=== PATIENT | female | born 1945 | race Caucasian/White ===

== ENCOUNTER → 2016-11-26 | Outpatient (CLI) | payer OTHER ==
[2015-07-26 10:13] VITALS: BP 115/73
[2016-11-26 10:50] LABS: FREE T4 (FREE THYROXINE) 1.3 ng/dL (0.76-1.46); TSH (3RD GENERATION) 2.019 uIU/mL (0.358-3.74)
== END ==
LOC: LAB 10:02
DX: E03.4 Atrophy of thyroid (acquired) (principal); Z79.899 Other long term (current) drug therapy; E55.9 Vitamin D deficiency, unspecified
CPT/HCPCS: 36415; 82306; 84439; 84443; 84481

== ENCOUNTER → 2017-07-06 | Outpatient (CLI) | payer OTHER ==
[2015-07-26 10:13] VITALS: BP 115/73
--- NOTE | 2017-07-06 15:52 | CT ---
HISTORY: Shortness of breath. Abnormal chest CT. Study: Computed tomography of the chest: Multiple axial images were obtained throughout the chest. Intravascular contrast was not administered. Radiation dose reduction techniques utilized. The hil ar resolution re-formatted images of the lung parenchyma do not include portions of the lower lobes. These areas are included on the routine mediastinal windows. Comparison: 07/13/2016 CT scan Findings: Very minimal hypostatic changes noted posteriorly. No pulmonary nodules or parenchymal infiltrates a re identified. The small areas of atelectatic change have resolved. I see no evidence of mediastinal adenopathy. A few small mediastinal lymph nodes are present. Minim al coronary arterial calcification is present. The thyroid is not well visualized. No evidence of s upraclavicular adenopathy is noted. The heart size is normal. Bilateral breast implants are present . Mild atherosclerotic changes present in the thoracic aorta. Mild is noted in the visualized abdom inal aorta. The abdomen as visualized demonstrates no focal lesions of the liver or spleen. The visualized adren al glands are normal. Visualized kidneys and gallbladder are normal. The visualized pancreas is nor mal. The bowel and mesentery as visualized is normal. Examination of the bone windows demonstrate mild to moderate thoracic spondylosis. No acute bony abn ormalities are identified. IMPRESSION: 1. The basilar atelectatic change/infiltrate in the lungs has resolved. I see no evidence of pleura l effusions, parenchymal infiltrates or pulmonary nodules. 2. Otherwise no significant change is noted. Reported By:
== END ==
LOC: RAD 13:52
PROVIDERS: ATTEND Internal Medicine Critical Care Medicine
DX: R93.8 Abnormal findings on diagnostic imaging of other specified body structures (principal)
CPT/HCPCS: 71250

== ENCOUNTER → 2017-10-26 | Outpatient (CLI) | payer OTHER ==
[2015-07-26 10:13] VITALS: BP 115/73
--- NOTE | 2017-10-26 15:41 | RAD ---
HISTORY: Shortness breath. Abnormal chest CT. Study: PA and lateral chest Comparison: CT scan 07/06/2017 Findings: Minimal interstitial scarring is noted. Otherwise, the heart, lungs, mediastinum and bony structures are normal for the patient's age with minimal mild thoracic spondylosis. Bilateral breast implants present. IMPRESSION: 1. Minimal interstitial scarring. 2. No radiographic evidence of acute cardiopulmonary disease. Reported By:
== END ==
LOC: RAD 15:07
PROVIDERS: ATTEND Nurse Practitioner Family
DX: R06.02 Shortness of breath (principal); R05 Cough; J20.9 Acute bronchitis, unspecified
CPT/HCPCS: 71046

== ENCOUNTER 2017-12-15 16:49 | Inpatient (IN) ==
[2017-12-15] MEDS ORDERED: ZOFRAN INJ 4 MG VIAL IVP PRN (18:55)
[2017-12-15 19:19] LABS: BASOPHILS # (AUTO) 0.1 X10^3/uL (0.0-0.1); BASOPHILS % (AUTO) 0.5 % (0.2-1.0); EOSINOPHILS # (AUTO) 0.2 x10^3/uL (0.0-0.2); EOSINOPHILS % (AUTO) 2.1 % (0.9-2.9); HEMATOCRIT 34.5 % (36.0-47.0); HEMOGLOBIN 11.4 g/dL (12.0-16.0); LYMPHOCYTES # (AUTO) 2.4 X10^3/uL (1.3-2.9); LYMPHOCYTES % (AUTO) 21.8 % (21.0-51.0); MEAN CORPUSCULAR HEMOGLOBIN 32.8 pg (27.0-34.0); MEAN CORPUSCULAR HGB CONC 33.2 g/dL (33.0-35.0); MEAN CORPUSCULAR VOLUME 98.8 fL (80.0-100.0); MEAN PLATELET VOLUME 7.8 fL (7.4-11.0); MONOCYTES % (AUTO) 8.7 % (0.0-13.0); NEUTROPHILS # (AUTO) 7.4 x10^3/uL (2.2-4.8); NEUTROPHILS % (AUTO) 66.9 % (42.0-75.0); PLATELET COUNT 294 X10^3/uL (150.0-450.0); RED BLOOD COUNT 3.49 X10^6/uL (3.5-5.4); RED CELL DISTRIBUTION WIDTH 14.6 % (11.6-16.5); WHITE BLOOD COUNT 11.1 X10^3/uL (3.6-10.0)
[2017-12-15 19:32] LABS: ALANINE AMINOTRANSFERASE 32 Units/L (12-78); ALBUMIN 3.5 g/dL (3.4-5.0); ALKALINE PHOSPHATASE 88 Units/L (46-116); AMYLASE 33 Units/L (25-115); ASPARTATE AMINO TRANSFERASE 18 Units/L (15-37); BLOOD UREA NITROGEN 22 mg/dL (7-18); CALCIUM 8.7 mg/dL (8.5-10.1); CARBON DIOXIDE 25.4 mmol/L (21-32); CHLORIDE 109 mmol/L (98-107); COR NA(FOR HYPERGLY) 146 mmol/L (136-145); CREATININE 1.46 mg/dL (0.55-1.02); LIPASE 152 Units/L (73-393); SODIUM 145 mmol/L (136-145); TOTAL PROTEIN 7.1 g/dL (6.4-8.2); eGFR NON BLACK RACES 37 (>60)
[2017-12-15] MEDS: LEVSIN/MAALOX/LIDOC VISC PO SCH ×2 (19:32→21:57)
[2017-12-15] MEDS: PEPCID 20 MG IV PREMIX* 20 MG/50 ML BAG IV SCH ×2 (19:33→21:58)
[2017-12-15] MEDS: PROTONIX INJ 40 MG VIAL IVP SCH ×2 (19:33→21:58)
[2017-12-15] MEDS: NS 1000 ML 1,000 ML IV SCH (19:33)
[2017-12-15 19:44] VITALS: BMI 29.2
--- NOTE | 2017-12-15 22:23 | CT ---
CT abdomen and pelvis without contrast Indication: Abdominal pain and bloating Technique: Helical images through the abdomen and pelvis with oral contrast only. No IV contrast. Cor onal and sagittal reformats provided. Comparison: No similar priors available. Findings: Limited images through the lower chest shows no acute abnormality. Breast implants noted. R eview of bone windows demonstrates spine degenerative change and slight curve to the right of the lum bar spine. Abdomen: Within the limits of a noncontrast study, the liver, gallbladder, spleen, adrenal glands, pa ncreas and stomach are normal. Contrast enters the distal small bowel without obstruction. No acute c olonic abnormality identified. Minimal vascular calcifications noted. Kidneys are normal without hydr oureteronephrosis. Pelvis: The urinary bladder and rectum are normal. Uterus is absent. No adnexal region lesions seen. Pancreas head appears atrophic, and there may be a small cystic lesion on axial image 38 versus atrop hic pancreas head/dilated common bowel duct. Impression: 1. No acute abnormality to explain the patient's pain 2. Question pancreas head cystic lesion. MRI abdomen follow-up recommended Reported By:
[2017-12-16] MEDS ORDERED: VISTARIL PO ONE (01:39)
[2017-12-16] MEDS: RESTORIL CAP 15 MG PO PRN (03:30)
[2017-12-16 04:39] LABS: BILIRUBIN,URINE NEGATIVE (NEGATIVE); BLOOD/HEMOGLOBIN,URINE 1+ (NEGATIVE); GLUCOSE, URINE NEGATIVE (NEGATIVE); KETONES,URINE NEGATIVE (NEGATIVE); LEUKOCYTE ESTERASE ,URINE NEGATIVE (NEGATIVE); NITRITES,URINE NEGATIVE (NEGATIVE); PROTEIN,URINE NEGATIVE (NEGATIVE); UROBILINOGEN,URINE NORMAL (NORMAL)
[2017-12-16 04:57] LABS: APPEARANCE,URINE CLEAR (CLEAR); COLOR,URINE YELLOW (YELLOW)
[2017-12-16 04:59] LABS: BACTERIA,URINE NEGATIVE /HPF (NEGATIVE); SQUAMOUS EPITHELIAL CELL,UR NEGATIVE /HPF (NEGATIVE)
[2017-12-16 06:08] LABS: BASOPHILS % (AUTO) 0.4 % (0.2-1.0); EOSINOPHILS # (AUTO) 0.2 x10^3/uL (0.0-0.2); EOSINOPHILS % (AUTO) 2.2 % (0.9-2.9); HEMATOCRIT 31.2 % (36.0-47.0); HEMOGLOBIN 10.6 g/dL (12.0-16.0); LYMPHOCYTES # (AUTO) 2.1 X10^3/uL (1.3-2.9); LYMPHOCYTES % (AUTO) 23.1 % (21.0-51.0); MEAN CORPUSCULAR HEMOGLOBIN 33.7 pg (27.0-34.0); MEAN CORPUSCULAR HGB CONC 34.1 g/dL (33.0-35.0); MEAN CORPUSCULAR VOLUME 98.7 fL (80.0-100.0); MEAN PLATELET VOLUME 7.9 fL (7.4-11.0); MONOCYTES # (AUTO) 0.8 x10^3/uL (0.3-0.8); MONOCYTES % (AUTO) 8.9 % (0.0-13.0); NEUTROPHILS # (AUTO) 5.9 x10^3/uL (2.2-4.8); NEUTROPHILS % (AUTO) 65.4 % (42.0-75.0); PLATELET COUNT 262 X10^3/uL (150.0-450.0); RED BLOOD COUNT 3.16 X10^6/uL (3.5-5.4); RED CELL DISTRIBUTION WIDTH 14.3 % (11.6-16.5); WHITE BLOOD COUNT 9.1 X10^3/uL (3.6-10.0)
[2017-12-16 06:14] LABS: ALANINE AMINOTRANSFERASE 28 Units/L (12-78); ALKALINE PHOSPHATASE 74 Units/L (46-116); ASPARTATE AMINO TRANSFERASE 16 Units/L (15-37); BLOOD UREA NITROGEN 18 mg/dL (7-18); CALCIUM 8.1 mg/dL (8.5-10.1); CARBON DIOXIDE 25.6 mmol/L (21-32); CHLORIDE 111 mmol/L (98-107); COR CA(FOR HYPOALB) 8.9 mg/dL (8.5-10.1); CREATININE 1.16 mg/dL (0.55-1.02); SODIUM 144 mmol/L (136-145); TOTAL PROTEIN 5.8 g/dL (6.4-8.2); eGFR NON BLACK RACES 49 (>60)
[2017-12-16] MEDS: LEVSIN/MAALOX/LIDOC VISC PO SCH ×4 (08:15→20:30)
[2017-12-16] MEDS: PEPCID 20 MG IV PREMIX* 20 MG/50 ML BAG IV SCH ×2 (08:16→20:26)
[2017-12-16] MEDS: PROTONIX INJ 40 MG VIAL IVP SCH ×2 (08:16→20:26)
[2017-12-16] MEDS: NS 1000 ML 1,000 ML IV SCH ×2 (10:19→21:25)
--- NOTE | 2017-12-16 13:17 | DR.UPDATE ---
H&P Update History and Physical Update: WAS SEEN IN THE OFFICE TODAY. A H&P WAS COMPLETED PRIOR TO ADMISSION. PATIENT HAS BEEN SEEN AND EXAMINED WITH NO CHANGES NOTED TO H&P. Changes noted: NO Yes with the following:
[2017-12-16] MEDS ORDERED: MULTIVIT MIN IRON FA LUTEIN PO SCH (14:00)
[2017-12-16] MEDS ORDERED: FLUOXETINE PO SCH (14:00)
[2017-12-16] MEDS ORDERED: PATIENT'S HOME MEDICATION (Potassium Chloride [Potassium Chloride] 20 MEQ) PO SCH (14:00)
[2017-12-16] MEDS ORDERED: FOLIC ACID 0.8 MG PO SCH (14:00)
[2017-12-16] MEDS ORDERED: PROPRANOLOL 20 MG PO SCH (14:00)
[2017-12-16] MEDS: ASPIRIN PO SCH (14:22)
[2017-12-16] MEDS: ARICEPT TAB 10 MG PO SCH (14:22)
[2017-12-16] MEDS: SYNTHROID 75 mcg TAB PO SCH (14:23)
[2017-12-16] MEDS: BUSPAR PO SCH ×2 (14:23→21:25)
--- NOTE | 2017-12-16 15:07 | MRI ---
MRI abdomen without contrast Indication: Possible pancreas head lesions seen on CT from 12/15/2017 Technique: Multiplanar multi sequence imaging through the abdomen without contrast. Comparison: Previous day's CT was reviewed. Findings: There is spine degenerative change with relatively normal bone marrow signal. Lung bases ar e clear. Breast implants are noted. Neurovascular structures appear normal. No liver lesion identifie d. The adrenal glands, spleen, liver, kidneys and visualized bowel loops are grossly normal. Out of p hase imaging shows no acute abnormality or evidence of fatty liver. No T1 signal abnormality identifi ed. Pancreas duct is visible but not markedly dilated. Intra and extrahepatic biliary tree appears relati vely normal. There is multi lobulated cystic area replacing the atrophic head of the pancreas, best d emonstrated on axial images 24 through 26. The lesion measures 1.4 x 1.8 x 2.7 cm (AP, trans, cc) on axial image 25 and coronal image 14 of the T2 weighted sequences. Lesion is low in T2 signal. Impression: 1. Focal atrophy of the head of the pancreas which is most really replaced by a multilocular microcys tic lesion measuring about 2.7 cm in maximal dimension. This merits follow-up MR imaging at 6 month i ntervals for 2 years to document stability and to exclude malignant transformation. At that point, if stable, further recommendations for long-term interval imaging will be provided per ACR guidelines 2. No other significant abnormality. Reported By:
[2017-12-16] MEDS: BENADRYL CAP/TAB 25 MG PO SCH (17:44)
[2017-12-16] MEDS: NAMENDA TAB 10 MG PO SCH (20:27)
[2017-12-16] MEDS: INDERAL TAB 10 MG PO SCH (20:29)
[2017-12-16] MEDS: CRESTOR TAB 10 MG PO SCH (20:29)
[2017-12-16] MEDS: ZyPREXA TAB 5 MG PO SCH (20:31)
[2017-12-16] MEDS ORDERED: ROSUVASTATIN PO SCH (21:00)
[2017-12-16] MEDS ORDERED: PATIENT'S HOME MEDICATION (Memantine [Memantine] 5 MG) PO SCH (21:00)
[2017-12-16] MEDS: VISTARIL PO PRN (21:26)
[2017-12-17] MEDS: BENADRYL CAP/TAB 25 MG PO SCH ×2 (06:11→17:13)
[2017-12-17] MEDS: BUSPAR PO SCH ×3 (06:11→23:11)
[2017-12-17 06:43] LABS: BASOPHILS % (AUTO) 0.5 % (0.2-1.0); EOSINOPHILS # (AUTO) 0.2 x10^3/uL (0.0-0.2); EOSINOPHILS % (AUTO) 3.1 % (0.9-2.9); HEMATOCRIT 31.8 % (36.0-47.0); HEMOGLOBIN 10.6 g/dL (12.0-16.0); LYMPHOCYTES # (AUTO) 1.9 X10^3/uL (1.3-2.9); LYMPHOCYTES % (AUTO) 28.8 % (21.0-51.0); MEAN CORPUSCULAR HEMOGLOBIN 33.6 pg (27.0-34.0); MEAN CORPUSCULAR HGB CONC 33.4 g/dL (33.0-35.0); MEAN CORPUSCULAR VOLUME 100.4 fL (80.0-100.0); MEAN PLATELET VOLUME 8.3 fL (7.4-11.0); MONOCYTES # (AUTO) 0.6 x10^3/uL (0.3-0.8); MONOCYTES % (AUTO) 9.2 % (0.0-13.0); NEUTROPHILS # (AUTO) 3.8 x10^3/uL (2.2-4.8); NEUTROPHILS % (AUTO) 58.4 % (42.0-75.0); PLATELET COUNT 255 X10^3/uL (150.0-450.0); RED BLOOD COUNT 3.17 X10^6/uL (3.5-5.4); RED CELL DISTRIBUTION WIDTH 14.8 % (11.6-16.5); WHITE BLOOD COUNT 6.5 X10^3/uL (3.6-10.0)
[2017-12-17 07:19] LABS: ALANINE AMINOTRANSFERASE 30 Units/L (12-78); ALBUMIN 2.9 g/dL (3.4-5.0); ALKALINE PHOSPHATASE 63 Units/L (46-116); ASPARTATE AMINO TRANSFERASE 18 Units/L (15-37); BLOOD UREA NITROGEN 13 mg/dL (7-18); CALCIUM 8.3 mg/dL (8.5-10.1); CARBON DIOXIDE 27.7 mmol/L (21-32); CHLORIDE 112 mmol/L (98-107); COR CA(FOR HYPOALB) 9.2 mg/dL (8.5-10.1); CREATININE 0.94 mg/dL (0.55-1.02); SODIUM 144 mmol/L (136-145); TOTAL PROTEIN 5.6 g/dL (6.4-8.2); eGFR NON BLACK RACES > 60 (>60)
[2017-12-17] MEDS ORDERED: ZyPREXA TAB 5 MG PO SCH (09:00)
[2017-12-17] MEDS ORDERED: K-DUR TAB 20 MEQ PO SCH (09:00)
--- NOTE | 2017-12-17 09:06 | RAD ---
Examination: Portable AP chest History: SOB Comparison reference 10/26/2017 Findings: Continued normal heart size with clear lungs and pleural spaces. Impression: No change; no acute findings. Reported By:
[2017-12-17] MEDS: DUONEB 0.5 MG/3 MG NEB SCH ×4 (10:27→21:17)
[2017-12-17] MEDS: PEPCID 20 MG IV PREMIX* 20 MG/50 ML BAG IV SCH ×2 (10:55→21:19)
[2017-12-17] MEDS: INDERAL TAB 10 MG PO SCH ×2 (10:55→21:16)
[2017-12-17] MEDS: ASPIRIN PO SCH (10:56)
[2017-12-17] MEDS: MICRO K EXTEN CAP 10 MEQ PO SCH (10:56)
[2017-12-17] MEDS: SYNTHROID 75 mcg TAB PO SCH (10:56)
[2017-12-17] MEDS: ARICEPT TAB 10 MG PO SCH (10:56)
[2017-12-17] MEDS: NAMENDA TAB 10 MG PO SCH ×2 (10:56→21:18)
[2017-12-17] MEDS: TAB-A-VITE PO SCH (10:57)
[2017-12-17] MEDS: FOLIC ACID TAB 1 MG PO SCH (10:57)
[2017-12-17] MEDS: ZyPREXA TAB 5 MG PO SCH ×2 (10:58→21:17)
[2017-12-17] MEDS: LEVSIN/MAALOX/LIDOC VISC PO SCH ×4 (10:58→23:49)
[2017-12-17] MEDS: PROzac PO SCH (10:58)
[2017-12-17] MEDS: PROTONIX INJ 40 MG VIAL IVP SCH ×2 (10:59→21:16)
[2017-12-17] MEDS ORDERED: DUONEB 0.5 MG/3 MG ONE ×2 (13:12→16:02)
--- NOTE | 2017-12-17 15:42 | PCM.PROG ---
Progress Note - Progress Note for Day of Date: 12/16/17 - Subjective Subjective: WAS ADMITTED FOR ABDOMINAL PAIN. TODAY, SHE IS ALERT AND ORIENTED, LYING IN BED ON MORNING ROUNDS. SHE CONTINUES TO COMPLAIN OF MILD, DIFFUSE ABDOMINAL PAIN. ON EXAMINATION, BILATERAL LUNGS ARE CLEAR TO AUSCULTATION. ABDOMEN IS ROUND, SOFT, AND NOTED WITH DIFFUSE TENDERNESS TO PALPATION. HER VITALS TODAY ARE 98.1-62-18-94%-138/66. LABS WERE OBTAINED. ABNORMAL LAB VALUES INCLUDE THE FOLLOWING: RBC 3.16, HGB 10.6, HCT 31.2, CHLORIDE 111, CREATININE 1.16, CALCIUM 8.1, TOTAL PROTEIN 5.8, ALBUMIN 3.0. AN ABD/PELVIS CT WAS OBTAINED ON ADMISSION AND REVEALED: No acute abnormality to explain the patient's pain. Question pancreas head cystic lesion. MRI abdomen follow-up recommended. TODAY, WE WILL OBTAIN AN ABDOMEN MRI AND CA 19-9. OTHERWISE, WE WILL CONTINUE WITH CURRENT PLAN OF CARE. WE PLAN TO FOLLOW UP WITH AM LABS AND CONTINUE TO MONITOR PATIENT. - Past Medical Family Social History Past Med/Fam/Surg Hx: No changes since H&P Allergies: Allergies beeswax Allergy (Verified 12/16/17 05:05) morphine Allergy (Verified 12/16/17 05:05) nifedipine Allergy (Verified 12/16/17 05:05) - Review of Systems ROS: No change since H&P - Vital Signs and I&O's Vital Signs: Temperature 98.1 F Pulse Rate [Right Brachial] 49 Respiratory Rate 21 Blood Pressure [Right Arm] 156/80 Blood Pressure 134/84 O2 Sat by Pulse Oximetry 100 Intake and Output: Intake & Output 12/15/17 12/16/17 12/17/17 12/18/17 11:59 11:59 11:59 11:59 Intake Total 1010 / 1010 1317 / 1317 Balance 1010 / 1010 1317 / 1317 - Physical Exam Oriented: Normal Eyes: Normal Ear: Normal Nose: Normal Throat: Normal Respiratory: Normal : Normal Auscultation: Bowel Sounds: Normal Palpation: Normal Tenderness: Diffuse, Mild. negative: Rebound, Guarding, Rigidity Skin: Normal Musculoskeletal: Normal Psychiatric: Normal Mood Description: Calm Affect: Normal Speech Pattern: Appropriate - Laboratory and Diagnostics Result Diagrams: 12/17/17 05:36 12/17/17 05:36 Labs: 12/15/17 03:30 Urine,Clean Catch Urine Culture - Preliminary Laboratory WBC 6.5 X10^3/uL (3.6-10.0) 12/17/17 05:36 RBC 3.17 X10^6/uL (3.5-5.4) L 12/17/17 05:36 Hgb 10.6 g/dL (12.0-16.0) L 12/17/17 05:36 Hct 31.8 % (36.0-47.0) L 12/17/17 05:36 MCV 100.4 fL (80.0-100.0) H 12/17/17 05:36 MCH 33.6 pg (27.0-34.0) 12/17/17 05:36 MCHC 33.4 g/dL (33.0-35.0) 12/17/17 05:36 RDW 14.8 % (11.6-16.5) 12/17/17 05:36 Plt Count 255 X10^3/uL (150.0-450.0) 12/17/17 05:36 MPV 8.3 fL (7.4-11.0) 12/17/17 05:36 Neut % (Auto) 58.4 % (42.0-75.0) 12/17/17 05:36 Lymph % (Auto) 28.8 % (21.0-51.0) 12/17/17 05:36 [place] % (Auto) 9.2 % (0.0-13.0) 12/17/17 05:36 Eos % (Auto) 3.1 % (0.9-2.9) H 12/17/17 05:36 Baso % (Auto) 0.5 % (0.2-1.0) 12/17/17 05:36 Neut # (Auto) 3.8 x10^3/uL (2.2-4.8) 12/17/17 05:36 Lymph # (Auto) 1.9 X10^3/uL (1.3-2.9) 12/17/17 05:36 [place] # (Auto) 0.6 x10^3/uL (0.3-0.8) 12/17/17 05:36 Eos # (Auto) 0.2 x10^3/uL (0.0-0.2) 12/17/17 05:36 Baso # (Auto) 0.0 X10^3/uL (0.0-0.1) 12/17/17 05:36 Absolute Nucleated RBC 0.3 /100WBC 12/17/17 05:36 Sodium 144 mmol/L (136-145) 12/17/17 05:36 Corrected Sodium TNP 12/17/17 05:36 Potassium 3.8 mmol/L (3.5-5.1) 12/17/17 05:36 Chloride 112 mmol/L (98-107) H 12/17/17 05:36 Carbon Dioxide 27.7 mmol/L (21-32) 12/17/17 05:36 BUN 13 mg/dL (7-18) 12/17/17 05:36 Creatinine 0.94 mg/dL (0.55-1.02) 12/17/17 05:36 Est GFR (MDRD) Af Amer > 60 (>60) 12/17/17 05:36 Est GFR (MDRD) Non-Af > 60 (>60) 12/17/17 05:36 Glucose 96 mg/dL (65-99) 12/17/17 05:36 Calcium 8.3 mg/dL (8.5-10.1) L 12/17/17 05:36 Corrected Calcium 9.2 mg/dL (8.5-10.1) 12/17/17 05:36 Total Bilirubin 0.30 mg/dL (0.2-1.0) 12/17/17 05:36 AST 18 Units/L (15-37) 12/17/17 05:36 ALT 30 Units/L (12-78) 12/17/17 05:36 Alkaline Phosphatase 63 Units/L (46-116) 12/17/17 05:36 Total Protein 5.6 g/dL (6.4-8.2) L 12/17/17 05:36 Albumin 2.9 g/dL (3.4-5.0) L 12/17/17 05:36 Globulin 2.7 g/dL (2.5-4.5) 12/17/17 05:36 Albumin/Globulin Ratio 1.1 Ratio (1.1-2.1) 12/17/17 05:36 Amylase 33 Units/L (25-115) 12/15/17 19:11 Lipase 152 Units/L (73-393) 12/15/17 19:11 Specimen Type Clean catch urine 12/15/17 03:30 Urine Color Yellow (YELLOW) 12/15/17 03:30 Urine Appearance Clear (CLEAR) 12/15/17 03:30 Urine pH 6.0 (5.0 - 8.0) 12/15/17 03:30 Ur Specific [place] 1.020 (1.000-1.030) 12/15/17 03:30 Urine Protein Negative (NEGATIVE) 12/15/17 03:30 Urine Glucose (UA) Negative (NEGATIVE) 12/15/17 03:30 Urine Ketones Negative (NEGATIVE) 12/15/17 03:30 Urine Occult Blood 1+ (NEGATIVE) 12/15/17 03:30 Urine Nitrite Negative (NEGATIVE) 12/15/17 03:30 Urine Bilirubin Negative (NEGATIVE) 12/15/17 03:30 Urine Urobilinogen Normal (NORMAL) 12/15/17 03:30 Ur Leukocyte Esterase Negative (NEGATIVE) 12/15/17 03:30 Urine RBC 3-5 /HPF (NONE SEEN) 12/15/17 03:30 Urine WBC None seen /HPF (NONE SEEN) 12/15/17 03:30 Ur Squamous Epith Cells Negative /HPF (NEGATIVE) 12/15/17 03:30 Urine Bacteria Negative /HPF (NEGATIVE) 12/15/17 03:30 Ur Culture Indicated? No/not indicated 12/15/17 03:30 H. pylori IgG Antibody Negative (NEGATIVE) 12/15/17 19:11 - Plan (1) Abdominal pain Status: Acute Qualifiers: Abdominal location: generalized Qualified Code(s): R10.84 - Generalized abdominal pain Plan: ABDOMEN MRI TODAY, CONTINUE TO MONITOR
[2017-12-17] MEDS: RESTORIL CAP 15 MG PO PRN (21:16)
[2017-12-17] MEDS: CRESTOR TAB 10 MG PO SCH (21:17)
[2017-12-17] MEDS: VISTARIL PO PRN (21:30)
[2017-12-17] MEDS: NS 1000 ML 1,000 ML IV SCH (23:49)
[2017-12-18] MEDS: NS 1000 ML 1,000 ML IV SCH (05:21)
[2017-12-18] MEDS: BUSPAR PO SCH ×3 (05:55→21:19)
[2017-12-18] MEDS: BENADRYL CAP/TAB 25 MG PO SCH ×2 (06:01→17:03)
[2017-12-18 06:42] LABS: BASOPHILS % (AUTO) 0.4 % (0.2-1.0); EOSINOPHILS # (AUTO) 0.2 x10^3/uL (0.0-0.2); EOSINOPHILS % (AUTO) 2.8 % (0.9-2.9); HEMATOCRIT 34.6 % (36.0-47.0); HEMOGLOBIN 11.6 g/dL (12.0-16.0); LYMPHOCYTES # (AUTO) 1.7 X10^3/uL (1.3-2.9); LYMPHOCYTES % (AUTO) 27.5 % (21.0-51.0); MEAN CORPUSCULAR HEMOGLOBIN 33.3 pg (27.0-34.0); MEAN CORPUSCULAR HGB CONC 33.4 g/dL (33.0-35.0); MEAN CORPUSCULAR VOLUME 99.6 fL (80.0-100.0); MEAN PLATELET VOLUME 8.1 fL (7.4-11.0); MONOCYTES # (AUTO) 0.5 x10^3/uL (0.3-0.8); MONOCYTES % (AUTO) 7.8 % (0.0-13.0); NEUTROPHILS # (AUTO) 3.8 x10^3/uL (2.2-4.8); NEUTROPHILS % (AUTO) 61.5 % (42.0-75.0); PLATELET COUNT 290 X10^3/uL (150.0-450.0); RED BLOOD COUNT 3.47 X10^6/uL (3.5-5.4); RED CELL DISTRIBUTION WIDTH 15.2 % (11.6-16.5); WHITE BLOOD COUNT 6.1 X10^3/uL (3.6-10.0)
[2017-12-18 07:01] LABS: ALANINE AMINOTRANSFERASE 30 Units/L (12-78); ALBUMIN 3.1 g/dL (3.4-5.0); ALKALINE PHOSPHATASE 70 Units/L (46-116); ASPARTATE AMINO TRANSFERASE 23 Units/L (15-37); BLOOD UREA NITROGEN 12 mg/dL (7-18); CALCIUM 8.7 mg/dL (8.5-10.1); CARBON DIOXIDE 29.8 mmol/L (21-32); CHLORIDE 111 mmol/L (98-107); COR CA(FOR HYPOALB) 9.4 mg/dL (8.5-10.1); CREATININE 1.12 mg/dL (0.55-1.02); SODIUM 145 mmol/L (136-145); TOTAL PROTEIN 6.2 g/dL (6.4-8.2); eGFR NON BLACK RACES 51 (>60)
[2017-12-18] MEDS ORDERED: DUONEB 0.5 MG/3 MG ONE ×2 (08:39→20:18)
[2017-12-18] MEDS: DUONEB 0.5 MG/3 MG NEB SCH ×4 (09:00→20:45)
[2017-12-18] MEDS: PROTONIX INJ 40 MG VIAL IVP SCH ×2 (09:57→21:18)
[2017-12-18] MEDS: INDERAL TAB 10 MG PO SCH ×2 (09:57→21:17)
[2017-12-18] MEDS: NAMENDA TAB 10 MG PO SCH ×2 (09:57→21:17)
[2017-12-18] MEDS: FOLIC ACID TAB 1 MG PO SCH (09:57)
[2017-12-18] MEDS: MICRO K EXTEN CAP 10 MEQ PO SCH (09:59)
[2017-12-18] MEDS: ARICEPT TAB 10 MG PO SCH (09:59)
[2017-12-18] MEDS: TAB-A-VITE PO SCH (10:00)
[2017-12-18] MEDS: PROzac PO SCH (10:00)
[2017-12-18] MEDS: ASPIRIN PO SCH (10:00)
[2017-12-18] MEDS: SYNTHROID 75 mcg TAB PO SCH (10:00)
[2017-12-18] MEDS: PEPCID 20 MG IV PREMIX* 20 MG/50 ML BAG IV SCH ×2 (10:30→21:15)
[2017-12-18] MEDS: LEVSIN/MAALOX/LIDOC VISC PO SCH ×4 (10:41→21:18)
[2017-12-18] MEDS: ZyPREXA TAB 5 MG PO SCH ×2 (10:42→19:10)
--- NOTE | 2017-12-18 16:43 | PCM.PROG ---
Progress Note - Progress Note for Day of Date: 12/17/17 - Subjective Subjective: WAS ADMITTED FOR ABDOMINAL PAIN. TODAY, SHE IS ALERT AND ORIENTED, SITTING ON THE SIDE OF THE BED ON MORNING ROUNDS. SHE CONTINUES TO COMPLAIN OF MILD, DIFFUSE ABDOMINAL PAIN. SHE ALSO REPORTS SHORTNESS OF BREATH. ON EXAMINATION, BILATERAL LUNGS ARE CLEAR TO AUSCULTATION. ABDOMEN IS ROUND, SOFT, AND NOTED WITH DIFFUSE TENDERNESS TO PALPATION. HER VITALS TODAY ARE 97.5- 55-16-97%-136/65. LABS WERE OBTAINED. ABNORMAL LAB VALUES INCLUDE THE FOLLOWING : RBC 3.17, HGB 10.6, HCT 31.8, CHLORIDE 112, CALCIUM 8.3, TOTAL PROTEIN 5.6, ALBUMIN 2.9. AN ABDOMEN MRI WAS OBTAINED TODAY AND REVEALED: Focal atrophy of the head of the pancreas which is most really replaced by a multilocular microcystic lesion measuring about 2.7 cm in maximal dimension. This merits follow-up MR imaging at 6 month intervals for 2 years to document stability and to exclude malignant transformation. At that point, if stable, further recommendations for long-term interval imaging will be provided per ACR guidelines. TODAY, WE WILL OBTAIN A CHEST XRAY AND START DUONEBS QID. OTHERWISE , WE WILL CONTINUE WITH CURRENT PLAN OF CARE. WE PLAN TO FOLLOW UP WITH AM LABS AND CONTINUE TO MONITOR PATIENT. - Past Medical Family Social History Past Med/Fam/Surg Hx: No changes since H&P Allergies: Allergies beeswax Allergy (Verified 12/16/17 05:05) morphine Allergy (Verified 12/16/17 05:05) nifedipine Allergy (Verified 12/16/17 05:05) - Review of Systems ROS: No change since H&P - Vital Signs and I&O's Vital Signs: Temperature 98.6 F Pulse Rate [Right Brachial] 52 Pulse Rate 57 Respiratory Rate 23 Blood Pressure [Right Arm] 133/60 Blood Pressure 134/84 O2 Sat by Pulse Oximetry 98 Intake and Output: Intake & Output 12/16/17 12/17/17 12/18/17 12/19/17 11:59 11:59 11:59 11:59 Intake Total 1010 / 1010 1317 / 1317 1780 / 1780 Balance 1010 / 1010 1317 / 1317 1780 / 1780 - Physical Exam Oriented: Normal Eyes: Normal Ear: Normal Nose: Normal Throat: Normal Respiratory: Normal : Normal Auscultation: Bowel Sounds: Normal Tenderness: Diffuse, Mild. negative: Rebound, Guarding, Rigidity Skin: Normal Musculoskeletal: Normal Psychiatric: Normal Mood Description: Calm Affect: Normal Speech Pattern: Appropriate - Laboratory and Diagnostics Result Diagrams: 12/18/17 05:55 12/18/17 05:55 Labs: 12/15/17 03:30 Urine,Clean Catch Urine Culture - Final Laboratory WBC 6.1 X10^3/uL (3.6-10.0) 12/18/17 05:55 RBC 3.47 X10^6/uL (3.5-5.4) L 12/18/17 05:55 Hgb 11.6 g/dL (12.0-16.0) L 12/18/17 05:55 Hct 34.6 % (36.0-47.0) L 12/18/17 05:55 MCV 99.6 fL (80.0-100.0) 12/18/17 05:55 MCH 33.3 pg (27.0-34.0) 12/18/17 05:55 MCHC 33.4 g/dL (33.0-35.0) 12/18/17 05:55 RDW 15.2 % (11.6-16.5) 12/18/17 05:55 Plt Count 290 X10^3/uL (150.0-450.0) 12/18/17 05:55 MPV 8.1 fL (7.4-11.0) 12/18/17 05:55 Neut % (Auto) 61.5 % (42.0-75.0) 12/18/17 05:55 Lymph % (Auto) 27.5 % (21.0-51.0) 12/18/17 05:55 [place] % (Auto) 7.8 % (0.0-13.0) 12/18/17 05:55 Eos % (Auto) 2.8 % (0.9-2.9) 12/18/17 05:55 Baso % (Auto) 0.4 % (0.2-1.0) 12/18/17 05:55 Neut # (Auto) 3.8 x10^3/uL (2.2-4.8) 12/18/17 05:55 Lymph # (Auto) 1.7 X10^3/uL (1.3-2.9) 12/18/17 05:55 [place] # (Auto) 0.5 x10^3/uL (0.3-0.8) 12/18/17 05:55 Eos # (Auto) 0.2 x10^3/uL (0.0-0.2) 12/18/17 05:55 Baso # (Auto) 0.0 X10^3/uL (0.0-0.1) 12/18/17 05:55 Absolute Nucleated RBC 0.0 /100WBC 12/18/17 05:55 Sodium 145 mmol/L (136-145) 12/18/17 05:55 Corrected Sodium TNP 12/18/17 05:55 Potassium 3.9 mmol/L (3.5-5.1) 12/18/17 05:55 Chloride 111 mmol/L (98-107) H 12/18/17 05:55 Carbon Dioxide 29.8 mmol/L (21-32) 12/18/17 05:55 BUN 12 mg/dL (7-18) 12/18/17 05:55 Creatinine 1.12 mg/dL (0.55-1.02) H 12/18/17 05:55 Est GFR (MDRD) Af Amer > 60 (>60) 12/18/17 05:55 Est GFR (MDRD) Non-Af 51 (>60) L 12/18/17 05:55 Glucose 104 mg/dL (65-99) H 12/18/17 05:55 Calcium 8.7 mg/dL (8.5-10.1) 12/18/17 05:55 Corrected Calcium 9.4 mg/dL (8.5-10.1) 12/18/17 05:55 Total Bilirubin 0.30 mg/dL (0.2-1.0) 12/18/17 05:55 AST 23 Units/L (15-37) 12/18/17 05:55 ALT 30 Units/L (12-78) 12/18/17 05:55 Alkaline Phosphatase 70 Units/L (46-116) 12/18/17 05:55 Total Protein 6.2 g/dL (6.4-8.2) L 12/18/17 05:55 Albumin 3.1 g/dL (3.4-5.0) L 12/18/17 05:55 Globulin 3.1 g/dL (2.5-4.5) 12/18/17 05:55 Albumin/Globulin Ratio 1.0 Ratio (1.1-2.1) L 12/18/17 05:55 Amylase 33 Units/L (25-115) 12/15/17 19:11 Lipase 152 Units/L (73-393) 12/15/17 19:11 Specimen Type Clean catch urine 12/15/17 03:30 Urine Color Yellow (YELLOW) 12/15/17 03:30 Urine Appearance Clear (CLEAR) 12/15/17 03:30 Urine pH 6.0 (5.0 - 8.0) 12/15/17 03:30 Ur Specific [place] 1.020 (1.000-1.030) 12/15/17 03:30 Urine Protein Negative (NEGATIVE) 12/15/17 03:30 Urine Glucose (UA) Negative (NEGATIVE) 12/15/17 03:30 Urine Ketones Negative (NEGATIVE) 12/15/17 03:30 Urine Occult Blood 1+ (NEGATIVE) 12/15/17 03:30 Urine Nitrite Negative (NEGATIVE) 12/15/17 03:30 Urine Bilirubin Negative (NEGATIVE) 12/15/17 03:30 Urine Urobilinogen Normal (NORMAL) 12/15/17 03:30 Ur Leukocyte Esterase Negative (NEGATIVE) 12/15/17 03:30 Urine RBC 3-5 /HPF (NONE SEEN) 12/15/17 03:30 Urine WBC None seen /HPF (NONE SEEN) 12/15/17 03:30 Ur Squamous Epith Cells Negative /HPF (NEGATIVE) 12/15/17 03:30 Urine Bacteria Negative /HPF (NEGATIVE) 12/15/17 03:30 Ur Culture Indicated? No/not indicated 12/15/17 03:30 H. pylori IgG Antibody Negative (NEGATIVE) 12/15/17 19:11 - Plan (1) Abdominal pain Status: Acute Qualifiers: Abdominal location: generalized Qualified Code(s): R10.84 - Generalized abdominal pain Plan: ABDOMEN MRI TODAY, CONTINUE TO MONITOR (2) Shortness of breath Status: Acute Plan: SUPPLEMENTAL OXYGEN, RESPIRATORY TREATMENTS, CHEST XRAY, CONTINUE TO MONITOR
[2017-12-18] MEDS ORDERED: ZyPREXA TAB 5 MG PO SCH (18:00)
[2017-12-18] MEDS: CRESTOR TAB 10 MG PO SCH (21:15)
[2017-12-19] MEDS: NS 1000 ML 1,000 ML IV SCH ×4 (01:10→13:10)
[2017-12-19 05:26] LABS: BASOPHILS % (AUTO) 0.6 % (0.2-1.0); EOSINOPHILS # (AUTO) 0.2 x10^3/uL (0.0-0.2); EOSINOPHILS % (AUTO) 2.9 % (0.9-2.9); HEMATOCRIT 32.1 % (36.0-47.0); HEMOGLOBIN 10.7 g/dL (12.0-16.0); LYMPHOCYTES # (AUTO) 1.7 X10^3/uL (1.3-2.9); LYMPHOCYTES % (AUTO) 25.1 % (21.0-51.0); MEAN CORPUSCULAR HEMOGLOBIN 33.3 pg (27.0-34.0); MEAN CORPUSCULAR HGB CONC 33.5 g/dL (33.0-35.0); MEAN CORPUSCULAR VOLUME 99.6 fL (80.0-100.0); MEAN PLATELET VOLUME 8.6 fL (7.4-11.0); MONOCYTES # (AUTO) 0.7 x10^3/uL (0.3-0.8); NEUTROPHILS # (AUTO) 4.3 x10^3/uL (2.2-4.8); NEUTROPHILS % (AUTO) 61.4 % (42.0-75.0); PLATELET COUNT 267 X10^3/uL (150.0-450.0); RED BLOOD COUNT 3.23 X10^6/uL (3.5-5.4); RED CELL DISTRIBUTION WIDTH 14.9 % (11.6-16.5)
[2017-12-19] MEDS: BUSPAR PO SCH ×3 (05:26→21:12)
[2017-12-19 05:54] LABS: ALANINE AMINOTRANSFERASE 29 Units/L (12-78); ALBUMIN 2.9 g/dL (3.4-5.0); ALKALINE PHOSPHATASE 74 Units/L (46-116); ASPARTATE AMINO TRANSFERASE 21 Units/L (15-37); BLOOD UREA NITROGEN 12 mg/dL (7-18); CALCIUM 8.5 mg/dL (8.5-10.1); CARBON DIOXIDE 26.7 mmol/L (21-32); CHLORIDE 109 mmol/L (98-107); COR CA(FOR HYPOALB) 9.4 mg/dL (8.5-10.1); COR NA(FOR HYPERGLY) 143 mmol/L (136-145); CREATININE 0.97 mg/dL (0.55-1.02); SODIUM 143 mmol/L (136-145); TOTAL PROTEIN 5.8 g/dL (6.4-8.2); eGFR NON BLACK RACES 60 (>60)
[2017-12-19] MEDS ORDERED: TYLENOL 325 MG TAB PO PRN (07:31)
[2017-12-19] MEDS ORDERED: DUONEB 0.5 MG/3 MG ONE (07:42)
[2017-12-19] MEDS: BENADRYL CAP/TAB 25 MG PO SCH ×2 (07:46→17:03)
[2017-12-19] MEDS: MICRO K EXTEN CAP 10 MEQ PO SCH (09:02)
[2017-12-19] MEDS: TAB-A-VITE PO SCH (09:02)
[2017-12-19] MEDS: ASPIRIN PO SCH (09:03)
[2017-12-19] MEDS: ZyPREXA TAB 5 MG PO SCH ×2 (09:03→17:03)
[2017-12-19] MEDS: NAMENDA TAB 10 MG PO SCH ×2 (09:05→20:06)
[2017-12-19] MEDS: SYNTHROID 75 mcg TAB PO SCH (09:08)
[2017-12-19] MEDS: PROzac PO SCH (09:09)
[2017-12-19] MEDS: ARICEPT TAB 10 MG PO SCH (09:09)
[2017-12-19] MEDS: FOLIC ACID TAB 1 MG PO SCH (09:09)
[2017-12-19] MEDS: LEVSIN/MAALOX/LIDOC VISC PO SCH ×4 (09:10→20:07)
[2017-12-19] MEDS: PEPCID 20 MG IV PREMIX* 20 MG/50 ML BAG IV SCH (09:10)
[2017-12-19] MEDS: INDERAL TAB 10 MG PO SCH ×2 (09:10→20:06)
[2017-12-19] MEDS: PROTONIX INJ 40 MG VIAL IVP SCH (09:10)
[2017-12-19] MEDS: VISTARIL PO PRN (13:11)
[2017-12-19] MEDS: DUONEB 0.5 MG/3 MG NEB SCH ×3 (13:30→21:15)
--- NOTE | 2017-12-19 17:49 | PCM.PROG ---
Progress Note - Progress Note for Day of Date: 12/18/17 - Subjective Subjective: WAS ADMITTED FOR ABDOMINAL PAIN. TODAY, SHE IS ALERT AND ORIENTED, SITTING ON THE SIDE OF THE BED ON MORNING ROUNDS. SHE IS NOTED WITH COMPLAINTS OF GENERALIZED WEAKNESS AND SHORTNESS OF BREATH TODAY. SPOUSE REPORTS THAT PATIENT WAS AGITATED AND RESTLESS THROUGHOUT THE NIGHT. HE ALSO REPORTS THAT SHE IS UNSTEADY ON AMBULATION. ON EXAMINATION, BILATERAL LUNGS ARE CLEAR TO AUSCULTATION. ABDOMEN IS ROUND, SOFT, AND NOTED WITH MILD, DIFFUSE TENDERNESS TO PALPATION. HER VITALS TODAY ARE 97.7-55-20-96%-138/74. LABS WERE OBTAINED. ABNORMAL LAB VALUES INCLUDE THE FOLLOWING: RBC 3.47, HGB 11.6, HCT 34.6, CHLORIDE 111, CREATININE 1.12, GLUCOSE 104, TOTAL PROTEIN 6.2, ALBUMIN 3.1. SPOUSE REQUEST THAT PATIENT BE CONSIDERED FOR SHORT TERM PLACEMENT FOR PHYSICAL THERAPY. TODAY, WE WILL CHANGE ZYPREXA TO 7.5MG PO BID. OTHERWISE, WE WILL CONTINUE WITH CURRENT PLAN OF CARE. WE PLAN TO FOLLOW UP WITH AM LABS AND CONTINUE TO MONITOR PATIENT. - Past Medical Family Social History Past Med/Fam/Surg Hx: No changes since H&P Allergies: Allergies beeswax Allergy (Verified 12/16/17 05:05) morphine Allergy (Verified 12/16/17 05:05) nifedipine Allergy (Verified 12/16/17 05:05) - Review of Systems ROS: No change since H&P - Vital Signs and I&O's Vital Signs: Temperature 98.2 F Pulse Rate [Right Brachial] 61 Pulse Rate 66 Respiratory Rate 21 Blood Pressure [Right Arm] 139/62 Blood Pressure 134/84 O2 Sat by Pulse Oximetry 96 Intake and Output: Intake & Output 12/17/17 12/18/17 12/19/17 12/20/17 11:59 11:59 11:59 11:59 Intake Total 1317 / 1317 1780 / 1780 2670 / 2670 790 / 790 Balance 1317 / 1317 1780 / 1780 2670 / 2670 790 / 790 - Physical Exam Oriented: Normal Eyes: Normal Ear: Normal Nose: Normal Throat: Normal Respiratory: Normal Cardiovascular: Normal : Normal Auscultation: Bowel Sounds: Normal Palpation: Normal Tenderness: Diffuse, Mild. negative: Rebound, Guarding, Rigidity Skin: Normal Musculoskeletal: Normal Psychiatric: Normal Mood Description: Calm Affect: Normal Speech Pattern: Clear - Laboratory and Diagnostics Result Diagrams: 12/19/17 04:22 12/19/17 04:22 Labs: 12/15/17 03:30 Urine,Clean Catch Urine Culture - Final Laboratory WBC 7.0 X10^3/uL (3.6-10.0) 12/19/17 04:22 RBC 3.23 X10^6/uL (3.5-5.4) L 12/19/17 04:22 Hgb 10.7 g/dL (12.0-16.0) L 12/19/17 04:22 Hct 32.1 % (36.0-47.0) L 12/19/17 04:22 MCV 99.6 fL (80.0-100.0) 12/19/17 04:22 MCH 33.3 pg (27.0-34.0) 12/19/17 04:22 MCHC 33.5 g/dL (33.0-35.0) 12/19/17 04:22 RDW 14.9 % (11.6-16.5) 12/19/17 04:22 Plt Count 267 X10^3/uL (150.0-450.0) 12/19/17 04:22 MPV 8.6 fL (7.4-11.0) 12/19/17 04:22 Neut % (Auto) 61.4 % (42.0-75.0) 12/19/17 04:22 Lymph % (Auto) 25.1 % (21.0-51.0) 12/19/17 04:22 [place] % (Auto) 10.0 % (0.0-13.0) 12/19/17 04:22 Eos % (Auto) 2.9 % (0.9-2.9) 12/19/17 04:22 Baso % (Auto) 0.6 % (0.2-1.0) 12/19/17 04:22 Neut # (Auto) 4.3 x10^3/uL (2.2-4.8) 12/19/17 04:22 Lymph # (Auto) 1.7 X10^3/uL (1.3-2.9) 12/19/17 04:22 [place] # (Auto) 0.7 x10^3/uL (0.3-0.8) 12/19/17 04:22 Eos # (Auto) 0.2 x10^3/uL (0.0-0.2) 12/19/17 04:22 Baso # (Auto) 0.0 X10^3/uL (0.0-0.1) 12/19/17 04:22 Absolute Nucleated RBC 0.1 /100WBC 12/19/17 04:22 Sodium 143 mmol/L (136-145) 12/19/17 04:22 Corrected Sodium 143 mmol/L (136-145) 12/19/17 04:22 Potassium 3.9 mmol/L (3.5-5.1) 12/19/17 04:22 Chloride 109 mmol/L (98-107) H 12/19/17 04:22 Carbon Dioxide 26.7 mmol/L (21-32) 12/19/17 04:22 BUN 12 mg/dL (7-18) 12/19/17 04:22 Creatinine 0.97 mg/dL (0.55-1.02) 12/19/17 04:22 Est GFR (MDRD) Af Amer > 60 (>60) 12/19/17 04:22 Est GFR (MDRD) Non-Af 60 (>60) 12/19/17 04:22 Glucose 115 mg/dL (65-99) H 12/19/17 04:22 Calcium 8.5 mg/dL (8.5-10.1) 12/19/17 04:22 Corrected Calcium 9.4 mg/dL (8.5-10.1) 12/19/17 04:22 Total Bilirubin 0.20 mg/dL (0.2-1.0) 12/19/17 04:22 AST 21 Units/L (15-37) 12/19/17 04:22 ALT 29 Units/L (12-78) 12/19/17 04:22 Alkaline Phosphatase 74 Units/L (46-116) 12/19/17 04:22 Total Protein 5.8 g/dL (6.4-8.2) L 12/19/17 04:22 Albumin 2.9 g/dL (3.4-5.0) L 12/19/17 04:22 Globulin 2.9 g/dL (2.5-4.5) 12/19/17 04:22 Albumin/Globulin Ratio 1.0 Ratio (1.1-2.1) L 12/19/17 04:22 Amylase 33 Units/L (25-115) 12/15/17 19:11 Lipase 152 Units/L (73-393) 12/15/17 19:11 Specimen Type Clean catch urine 12/15/17 03:30 Urine Color Yellow (YELLOW) 12/15/17 03:30 Urine Appearance Clear (CLEAR) 12/15/17 03:30 Urine pH 6.0 (5.0 - 8.0) 12/15/17 03:30 Ur Specific [place] 1.020 (1.000-1.030) 12/15/17 03:30 Urine Protein Negative (NEGATIVE) 12/15/17 03:30 Urine Glucose (UA) Negative (NEGATIVE) 12/15/17 03:30 Urine Ketones Negative (NEGATIVE) 12/15/17 03:30 Urine Occult Blood 1+ (NEGATIVE) 12/15/17 03:30 Urine Nitrite Negative (NEGATIVE) 12/15/17 03:30 Urine Bilirubin Negative (NEGATIVE) 12/15/17 03:30 Urine Urobilinogen Normal (NORMAL) 12/15/17 03:30 Ur Leukocyte Esterase Negative (NEGATIVE) 12/15/17 03:30 Urine RBC 3-5 /HPF (NONE SEEN) 12/15/17 03:30 Urine WBC None seen /HPF (NONE SEEN) 12/15/17 03:30 Ur Squamous Epith Cells Negative /HPF (NEGATIVE) 12/15/17 03:30 Urine Bacteria Negative /HPF (NEGATIVE) 12/15/17 03:30 Ur Culture Indicated? No/not indicated 12/15/17 03:30 H. pylori IgG Antibody Negative (NEGATIVE) 12/15/17 19:11 - Plan (1) Abdominal pain Status: Acute Qualifiers: Abdominal location: generalized Qualified Code(s): R10.84 - Generalized abdominal pain Plan: PEPCID, PROTONIX, GI COCKTAIL, CONTINUE TO MONITOR (2) Shortness of breath Status: Acute Plan: SUPPLEMENTAL OXYGEN, RESPIRATORY TREATMENTS, CONTINUE TO MONITOR (3) Dementia Status: Acute Qualifiers: Dementia type: unspecified type Dementia behavioral disturbance: with behavioral disturbance Qualified Code(s): F03.91 - Unspecified dementia with behavioral disturbance Plan: ZYPREXA 7.5MG PO BID, ARICEPT 10MG PO DAILY, NAMENDA 5MG PPO BID, CONTINUE TO MONITOR (4) Hypothyroidism Status: Acute Qualifiers: Hypothyroidism type: acquired Qualified Code(s): E03.9 - Hypothyroidism, unspecified Plan: CONTINUE SYNTHROID, CONTINUE TO MONITOR
[2017-12-19] MEDS: CRESTOR TAB 10 MG PO SCH (20:06)
[2017-12-19] MEDS: RESTORIL CAP 15 MG PO PRN (20:11)
[2017-12-20] MEDS: BUSPAR PO SCH ×2 (06:05→14:01)
[2017-12-20] MEDS: BENADRYL CAP/TAB 25 MG PO SCH (06:05)
[2017-12-20 06:10] LABS: BASOPHILS % (AUTO) 0.6 % (0.2-1.0); EOSINOPHILS # (AUTO) 0.3 x10^3/uL (0.0-0.2); EOSINOPHILS % (AUTO) 3.9 % (0.9-2.9); HEMATOCRIT 34.1 % (36.0-47.0); HEMOGLOBIN 11.5 g/dL (12.0-16.0); LYMPHOCYTES # (AUTO) 1.8 X10^3/uL (1.3-2.9); LYMPHOCYTES % (AUTO) 25.9 % (21.0-51.0); MEAN CORPUSCULAR HEMOGLOBIN 33.8 pg (27.0-34.0); MEAN CORPUSCULAR HGB CONC 33.6 g/dL (33.0-35.0); MEAN CORPUSCULAR VOLUME 100.7 fL (80.0-100.0); MEAN PLATELET VOLUME 8.1 fL (7.4-11.0); MONOCYTES # (AUTO) 0.7 x10^3/uL (0.3-0.8); MONOCYTES % (AUTO) 9.5 % (0.0-13.0); NEUTROPHILS # (AUTO) 4.1 x10^3/uL (2.2-4.8); NEUTROPHILS % (AUTO) 60.1 % (42.0-75.0); PLATELET COUNT 287 X10^3/uL (150.0-450.0); RED BLOOD COUNT 3.39 X10^6/uL (3.5-5.4); RED CELL DISTRIBUTION WIDTH 14.9 % (11.6-16.5); WHITE BLOOD COUNT 6.9 X10^3/uL (3.6-10.0)
[2017-12-20 06:17] LABS: ALANINE AMINOTRANSFERASE 19 Units/L (12-78); ALKALINE PHOSPHATASE 77 Units/L (46-116); ASPARTATE AMINO TRANSFERASE 21 Units/L (15-37); BLOOD UREA NITROGEN 11 mg/dL (7-18); CALCIUM 8.5 mg/dL (8.5-10.1); CARBON DIOXIDE 28.8 mmol/L (21-32); CHLORIDE 108 mmol/L (98-107); COR CA(FOR HYPOALB) 9.3 mg/dL (8.5-10.1); CREATININE 1.06 mg/dL (0.55-1.02); SODIUM 144 mmol/L (136-145); TOTAL PROTEIN 6.1 g/dL (6.4-8.2); eGFR NON BLACK RACES 54 (>60)
[2017-12-20] MEDS: ASPIRIN PO SCH (08:40)
[2017-12-20] MEDS: SYNTHROID 75 mcg TAB PO SCH (08:41)
[2017-12-20] MEDS: LEVSIN/MAALOX/LIDOC VISC PO SCH ×2 (08:41→12:56)
[2017-12-20] MEDS: ARICEPT TAB 10 MG PO SCH (08:43)
[2017-12-20] MEDS: ZyPREXA TAB 5 MG PO SCH (08:43)
[2017-12-20] MEDS: NAMENDA TAB 10 MG PO SCH (08:44)
[2017-12-20] MEDS: TAB-A-VITE PO SCH (08:44)
[2017-12-20] MEDS: PROzac PO SCH (08:44)
[2017-12-20] MEDS: FOLIC ACID TAB 1 MG PO SCH (08:45)
[2017-12-20] MEDS: MICRO K EXTEN CAP 10 MEQ PO SCH (08:45)
[2017-12-20] MEDS: INDERAL TAB 10 MG PO SCH (08:45)
[2017-12-20] MEDS: DUONEB 0.5 MG/3 MG NEB SCH ×2 (08:55→12:40)
[2017-12-20 13:59] VITALS: BP 124/74
--- NOTE | 2018-01-16 01:36 | DR.CARTERD ---
- Discharge Summary for: Discharge Summary for Date of:: 12/20/17 - Admission Date Date of Admission: 12/15/17 - Admission Diagnoses Admission Diagnosis: (1) Abdominal pain (2) Shortness of breath (3) Dementia (4) Hypothyroidism - Discharge Date Discharge Date: 12/20/17 - Discharge Diagnoses Discharge Diagnosis: (1) Abdominal pain (2) Shortness of breath (3) Dementia (4) Hypothyroidism - Hospital Course Hospital Course: DAY ONE, MS. HOLMAN PRESENTED TO OUR OFFICE WITH ABDOMINAL PAIN. SHE WAS NOTED WITH DIFFUSE, ABDOMINAL PAIN UPON PALPATION. SHE DESCRIBED IT ACUTE, DULL, AND SOMETIMES SHARP. SHE ALSO REPORTED LOW BACK PAIN. PATIENT WAS ADMITTED FOR FURTHER EVALUATION AND WORK UP. DAY TWO, PATIENT WAS ALERT AND ORIENTED, LYING IN BED ON MORNING ROUNDS. SHE CONTINUED TO COMPLAIN OF MILD, DIFFUSE ABDOMINAL PAIN. ON EXAMINATION, BILATERAL LUNGS WERE CLEAR TO AUSCULTATION. ABDOMEN WAS ROUND, SOFT, AND NOTED WITH DIFFUSE TENDERNESS TO PALPATION. HER VITALS WERE 98.1-62-18-94%-138/66. LABS WERE OBTAINED. ABNORMAL LAB VALUES INCLUDED THE FOLLOWING: RBC 3.16, HGB 10.6, HCT 31.2, CHLORIDE 111, CREATININE 1.16, CALCIUM 8.1, TOTAL PROTEIN 5.8, ALBUMIN 3.0. AN ABD/PELVIS CT WAS OBTAINED ON ADMISSION AND REVEALED: NO ACUTE ABNORMALITY; QUESTION PANCREAS HEAD CYSTIC LESION, MRI RECOMMENDED. WE CONTINUED TO MONITOR PATIENT. DAY THREE, MS. HOLMAN CONTINUED TREATMENT FOR ABDOMINAL PAIN. SHE WAS ALERT AND ORIENTED, SITTING ON THE SIDE OF THE BED ON MORNING ROUNDS. SHE CONTINUED TO COMPLAIN OF MILD, DIFFUSE ABDOMINAL PAIN. SHE ALSO REPORTED SHORTNESS OF BREATH. ON EXAMINATION, BILATERAL LUNGS WERE CLEAR TO AUSCULTATION. ABDOMEN WAS ROUND, SOFT, AND NOTED WITH DIFFUSE TENDERNESS TO PALPATION. HER VITALS WERE 97.5-55-16-97%-136/65. LABS WERE OBTAINED. ABNORMAL LAB VALUES INCLUDED THE FOLLOWING: RBC 3.17, HGB 10.6, HCT 31.8, CHLORIDE 112, CALCIUM 8.3, TOTAL PROTEIN 5.6, ALBUMIN 2.9. 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 WE STARTED DUONEBS AND CONTINUED WITH TREATMENT. DAY FOUR AND FIVE, SHE WAS NOTED WITH COMPLAINTS OF GENERALIZED WEAKNESS AND SHORTNESS OF BREATH. SPOUSE REPORTED THAT PATIENT WAS AGITATED AND RESTLESS THROUGHOUT THE NIGHT. HE ALSO REPORTED THAT SHE WAS UNSTEADY ON AMBULATION. ON EXAMINATION, BILATERAL LUNGS WERE CLEAR TO AUSCULTATION. ABDOMEN WAS ROUND, SOFT , AND NOTED WITH MILD, DIFFUSE TENDERNESS TO PALPATION. HER VITALS WERE 97.7-55- 20-96%-138/74. LABS WERE OBTAINED. ABNORMAL LAB VALUES INCLUDED THE FOLLOWING: RBC 3.47, HGB 11.6, HCT 34.6, CHLORIDE 111, CREATININE 1.12, GLUCOSE 104, TOTAL PROTEIN 6.2, ALBUMIN 3.1. SPOUSE REQUESTED THAT PATIENT BE CONSIDERED FOR SHORT- TERM PLACEMENT FOR PHYSICAL THERAPY. WE CHANGED ZYPREXA TO 7.5MG PO BID. CASE MANAGEMENT SOUGHT PLACEMENT FOR SHORT-TERM REHAB. DAY SIX, PATIENT WAS DOING BETTER. SHE DENIED SHORTNESS OF BREATH. SHE CONTINUED WITH GENERALIZED WEAKNESS AND UNSTEADY GAIT. PATIENT WAS ACCEPTED FOR SHORT-TERM REHAB AT [facility]. VITAL SIGNS STABLE. LABS WNL. WE PLANNED FOR DISCHARGE. INSTRUCTIONS FOR MEDICATIONS AND FOLLOW UP WERE DISCUSSED WITH PATIENT AND FAMILY, BOTH VOICED UNDERSTANDING. PATIENT DISCHARGED TO [facility] IN STABLE CONDITION WITH STAFF. - Discharge Medications Discharge Medications: Home Medication List Vitamin D 64375 50,000 units PO WEEKLY 12/16/17 [History] aspirin 325 mg PO DAILY 12/16/17 [History] buspirone 20 mg PO TID 12/16/17 [History] diphenhydramine HCl [Benadryl] 25 mg PO BIDWM 12/16/17 [History] donepezil [Aricept] 10 mg PO HS 12/16/17 [History] folic acid 0.8 mg PO DAILY 12/16/17 [History] levothyroxine [Synthroid] 75 mcg PO DAILY 12/16/17 [History] memantine 5 mg PO BID 12/16/17 [History] memantine 5 mg PO BID 12/16/17 [History] efmmjlek-dhm-firj-FA-lutein [Centrum Silver Women] 1 tab PO DAILY 12/16/17 [ History] oxybutynin chloride 5 mg PO HS 12/16/17 [History] pantoprazole 20 mg PO QAM 12/16/17 [History] potassium chloride 10 meq PO BID 12/16/17 [History] propranolol 20 mg PO BID 12/16/17 [History] rosuvastatin 1 tab PO HS 12/16/17 [History] fluoxetine 2 tab PO DAILY #0 tab 12/20/17 [Rx] olanzapine 7.5 mg PO 0900,1800 tab 12/20/17 [Rx] Prescriptions: - Discharge Disposition Discharge Disposition: WE WILL FOLLOW UP WITH PATIENT IN ONE WEEK AT THE RETIREMENT.
--- NOTE | 2018-01-27 10:29 | PCM.PROG ---
Progress Note - Progress Note for Day of Date of Exam: 12/19/17 - Subjective Subjective: WAS ADMITTED FOR ABDOMINAL PAIN. TODAY, SHE IS ALERT AND ORIENTED, SITTING ON THE SIDE OF THE BED ON MORNING ROUNDS. SHE CONTINUES WITH COMPLAINTS OF GENERALIZED WEAKNESS AND SHORTNESS OF BREATH TODAY. SPOUSE REPORTS THAT PATIENT RESTED BETTER THROUGHOUT THE NIGHT. HE REPORTS THAT SHE CONTINUES TO BE UNSTEADY ON AMBULATION. ON EXAMINATION, BILATERAL LUNGS ARE CLEAR TO AUSCULTATION. ABDOMEN IS ROUND, SOFT, AND NOTED WITH MILD, DIFFUSE TENDERNESS TO PALPATION. HER VITALS TODAY ARE 98.1-50-20-97%-151/69. LABS WERE OBTAINED. ABNORMAL LAB VALUES INCLUDE THE FOLLOWING: RBC 3.25, HGB 10.7, HCT 32.1, CHLORIDE 109, GLUCOSE 115, TOTAL PROTEIN 5.8, ALBUMIN 2.9. TODAY, WE WILL CONTINUE WITH CURRENT PLAN OF CARE. CASE MANAGEMENT IS ARRANGING PLACEMENT AT [facility] FOR WHEN PATIENT IS READY FOR DISCHARGE. WE PLAN TO FOLLOW UP WITH AM LABS AND CONTINUE TO MONITOR PATIENT. - Past Medical Family Social History Past Med/Fam/Surg Hx: No changes since H&P Allergies: Allergies beeswax Allergy (Verified 12/16/17 05:05) morphine Allergy (Verified 12/16/17 05:05) nifedipine Allergy (Verified 12/16/17 05:05) - Review of Systems ROS: No change since H&P - Vital Signs and I&O's Vital Signs: Temperature 98.2 F Pulse Rate [Right Brachial] 56 Pulse Rate 65 Respiratory Rate 18 Blood Pressure [Right Arm] 124/74 Blood Pressure 134/84 O2 Sat by Pulse Oximetry 96 - Physical Exam Oriented: Normal Eyes: Normal Ear: Normal Nose: Normal Throat: Normal Respiratory: Normal Cardiovascular: Normal : Normal Auscultation: Bowel Sounds: Normal Palpation: Normal Tenderness: Diffuse, Mild. negative: Rebound, Guarding, Rigidity Skin: Normal Musculoskeletal: Normal Psychiatric: Normal Mood Description: Calm Affect: Normal Speech Pattern: Clear - Laboratory and Diagnostics Result Diagrams: 12/20/17 05:00 12/20/17 05:00 Labs: 12/15/17 03:30 Urine,Clean Catch Urine Culture - Final Laboratory WBC 6.9 X10^3/uL (3.6-10.0) 12/20/17 05:00 RBC 3.39 X10^6/uL (3.5-5.4) L 12/20/17 05:00 Hgb 11.5 g/dL (12.0-16.0) L 12/20/17 05:00 Hct 34.1 % (36.0-47.0) L 12/20/17 05:00 MCV 100.7 fL (80.0-100.0) H 12/20/17 05:00 MCH 33.8 pg (27.0-34.0) 12/20/17 05:00 MCHC 33.6 g/dL (33.0-35.0) 12/20/17 05:00 RDW 14.9 % (11.6-16.5) 12/20/17 05:00 Plt Count 287 X10^3/uL (150.0-450.0) 12/20/17 05:00 MPV 8.1 fL (7.4-11.0) 12/20/17 05:00 Neut % (Auto) 60.1 % (42.0-75.0) 12/20/17 05:00 Lymph % (Auto) 25.9 % (21.0-51.0) 12/20/17 05:00 [place] % (Auto) 9.5 % (0.0-13.0) 12/20/17 05:00 Eos % (Auto) 3.9 % (0.9-2.9) H 12/20/17 05:00 Baso % (Auto) 0.6 % (0.2-1.0) 12/20/17 05:00 Neut # (Auto) 4.1 x10^3/uL (2.2-4.8) 12/20/17 05:00 Lymph # (Auto) 1.8 X10^3/uL (1.3-2.9) 12/20/17 05:00 [place] # (Auto) 0.7 x10^3/uL (0.3-0.8) 12/20/17 05:00 Eos # (Auto) 0.3 x10^3/uL (0.0-0.2) H 12/20/17 05:00 Baso # (Auto) 0.0 X10^3/uL (0.0-0.1) 12/20/17 05:00 Absolute Nucleated RBC 0.0 /100WBC 12/20/17 05:00 Sodium 144 mmol/L (136-145) 12/20/17 05:00 Corrected Sodium TNP 12/20/17 05:00 Potassium 3.8 mmol/L (3.5-5.1) 12/20/17 05:00 Chloride 108 mmol/L (98-107) H 12/20/17 05:00 Carbon Dioxide 28.8 mmol/L (21-32) 12/20/17 05:00 BUN 11 mg/dL (7-18) 12/20/17 05:00 Creatinine 1.06 mg/dL (0.55-1.02) H 12/20/17 05:00 Est GFR (MDRD) Af Amer > 60 (>60) 12/20/17 05:00 Est GFR (MDRD) Non-Af 54 (>60) L 12/20/17 05:00 Glucose 105 mg/dL (65-99) H 12/20/17 05:00 Calcium 8.5 mg/dL (8.5-10.1) 12/20/17 05:00 Corrected Calcium 9.3 mg/dL (8.5-10.1) 12/20/17 05:00 Total Bilirubin 0.20 mg/dL (0.2-1.0) 12/20/17 05:00 AST 21 Units/L (15-37) 12/20/17 05:00 ALT 19 Units/L (12-78) 12/20/17 05:00 Alkaline Phosphatase 77 Units/L (46-116) 12/20/17 05:00 Total Protein 6.1 g/dL (6.4-8.2) L 12/20/17 05:00 Albumin 3.0 g/dL (3.4-5.0) L 12/20/17 05:00 Globulin 3.1 g/dL (2.5-4.5) 12/20/17 05:00 Albumin/Globulin Ratio 1.0 Ratio (1.1-2.1) L 12/20/17 05:00 Amylase 33 Units/L (25-115) 12/15/17 19:11 Lipase 152 Units/L (73-393) 12/15/17 19:11 CA 19-9 Antigen 9 U/mL (0-37) 12/16/17 05:48 Specimen Type Clean catch urine 12/15/17 03:30 Urine Color Yellow (YELLOW) 12/15/17 03:30 Urine Appearance Clear (CLEAR) 12/15/17 03:30 Urine pH 6.0 (5.0 - 8.0) 12/15/17 03:30 Ur Specific [place] 1.020 (1.000-1.030) 12/15/17 03:30 Urine Protein Negative (NEGATIVE) 12/15/17 03:30 Urine Glucose (UA) Negative (NEGATIVE) 12/15/17 03:30 Urine Ketones Negative (NEGATIVE) 12/15/17 03:30 Urine Occult Blood 1+ (NEGATIVE) 12/15/17 03:30 Urine Nitrite Negative (NEGATIVE) 12/15/17 03:30 Urine Bilirubin Negative (NEGATIVE) 12/15/17 03:30 Urine Urobilinogen Normal (NORMAL) 12/15/17 03:30 Ur Leukocyte Esterase Negative (NEGATIVE) 12/15/17 03:30 Urine RBC 3-5 /HPF (NONE SEEN) 12/15/17 03:30 Urine WBC None seen /HPF (NONE SEEN) 12/15/17 03:30 Ur Squamous Epith Cells Negative /HPF (NEGATIVE) 12/15/17 03:30 Urine Bacteria Negative /HPF (NEGATIVE) 12/15/17 03:30 Ur Culture Indicated? No/not indicated 12/15/17 03:30 H. pylori IgG Antibody Negative (NEGATIVE) 12/15/17 19:11 - Plan (1) Abdominal pain Status: Acute Qualifiers: Abdominal location: generalized Qualified Code(s): R10.84 - Generalized abdominal pain Plan: PEPCID, PROTONIX, GI COCKTAIL, CONTINUE TO MONITOR (2) Shortness of breath Status: Acute Plan: SUPPLEMENTAL OXYGEN, RESPIRATORY TREATMENTS, CONTINUE TO MONITOR (3) Dementia Status: Acute Qualifiers: Dementia type: unspecified type Dementia behavioral disturbance: with behavioral disturbance Qualified Code(s): F03.91 - Unspecified dementia with behavioral disturbance Plan: ZYPREXA 7.5MG PO BID, ARICEPT 10MG PO DAILY, NAMENDA 5MG PPO BID, CONTINUE TO MONITOR (4) Hypothyroidism Status: Acute Qualifiers: Hypothyroidism type: acquired Qualified Code(s): E03.9 - Hypothyroidism, unspecified Plan: CONTINUE SYNTHROID, CONTINUE TO MONITOR
== END 2017-12-20 16:15 | DRG 392 ==
LOC: OBS → MED/SURG 12-16 17:09
PROVIDERS: ADMIT Internal Medicine; ATTEND Internal Medicine
DX: R06.02 Shortness of breath; R10.84 Generalized abdominal pain; E03.8 Other specified hypothyroidism; R51 Headache; M54.5 Low back pain; F03.91 Unspecified dementia, unspecified severity, with behavioral disturbance; R60.0 Localized edema; R26.89 Other abnormalities of gait and mobility
CPT/HCPCS: 36415; 71010; 71045; 74176; 74181; 80053; 81001; 82150; 83690; 85025; 86301; 86316; 86677; 87086; 94640; 97110; 97116; 97162; A4216; A4222; C9113; Q0177; S0028; G0378; J3490; J7030; J7620

== ENCOUNTER 2018-07-01 09:55 | Inpatient (IN) ==
[2018-07-01] MEDS ORDERED: NS 1000 ML 1,000 ML ONE (10:04)
--- NOTE | 2018-07-01 10:30 | DR.DIZZY ---
HPI - Time seen Time seen: 10:25 - PCP Primary Care Physician: ESCOBAR - Complaint Chief Complaint Doctor Comments: Patient complains of nausea, vomiting, RUQ pain, cough with SOB for the past 24 hours getting worst this morning. Family relates patient with gallbladder surgery three days ago with no problems initially but vomitted copious yellow secretions on the way to the emergency room today. EMS states they gave her some zofran enroute to the emergency room. Family state her appetite has been decreased and she started feeling bad about 30 minutes ago. She is a patient of Dr. Cage and is suffering from dementia as related by family members. Family states she fell against the wall going to the bathroom today with her eyes deviated with problems focusing until recently. Patient denies head trauma or headache. Chief Complaint:: PATIENT HAS BEEN HAVING NAUSEA, WEAKNESS, AND SHORT OF BREATH SINCE THIS MORNING. PATIENT ACTIVAL VOMITING ON ARRIVAL. SHE IS NOW COMPLAING OF ABD. PAIN. - Nurses Notes Reviewed Nurses Notes Review: Yes - Source History Provided: Patient, Family Member, EMS - Mode of Arrival Mode of Arrival: EMS - Timing Onset of Chief Complaint: 07/01/18 Came on: Suddenly Symptom Onset: Known - Duration Duration: Constant How lon Duration: Minutes - Location of Weakness Weakness Location: Generalized - Context Onset: At rest Does pt take pot. toxic medication?: No History of: None Stroke Symptoms: None - Severity Severity: Normal activity level - Modifying factors Worsens: Change in Position - Associated signs and symptoms Associated Signs and Symptoms: Weak, Nausea, Vomiting PMH - PMH Past Medical History: Yes Past Medical History: Hyperthyroidism Past Surgical History: Yes Surgical History: Hysterectomy, Ortho Surgery - Family History History of Family Medical Conditions: Yes Family Medical History: Cancer - Social History Does patient currently use any type of tobacco product: No Have you used tobacco products in the last 12 months: No Type of Tobacco Use: None Does any household member use tobacco: No Alcohol Use: None Do you use any recreational Drugs:: No Lives With: Family Lives Where: Home - infectious screening In the last 2 months have you had wt loss of >10#?: NO Have you had fever, night sweats or hemotysis?: No Have you traveled outside the country in the last 6 months?: No Isolation: Standard ROS - Review of Systems Constitutional: No Symptoms Reported, Weakness Eyes: No Symptoms Reported. negative: See HPI, Eye Pain, Blurred Vision, Tearing, Discharge, Photophobia, Diplopia, Other ENTM: No Symptoms Reported Respiratoy: No Symptoms Reported, Dry Cough, Short of Breath Cardiovascular: No Symptoms Reported Gastrointestinal/Abdominal: Abdominal Pain, Nausea, Vomiting Genitourinary: No Symptoms Reported Neurological: No Symptoms Reported, Weakness, Problems Walking. negative: See HPI, Anxiety, Depressed, Emotional Problems, Headache, Numbness, Paresthesia, Pre-existing Deficit, Seizure, Tingling, Tremors, Dizziness, Speech Problem, Other Musculoskeletal: No Symptoms Reported Integumentary: No Symptoms Reported Hematologic/Lymphatic: No Symptoms Reported Endocrine: No Symptoms Reported, Decreased Appetite Psychiatric: No Symptoms Reported PE - General Limitations: No Limitations General Appearance: Alert, In No Apparent Distress - Head Head Exam: Normal Inspection, Atraumatic, Normocephalic - Eyes Eye exam: Normal Appearance, PERRL, EOMI. negative: Scleral Icterus, Conjunctival Injection, Nystagmus, Miosis, Mydrasis, Periorbital Swelling, Periorbital Tenderness, Other Pupils: Regular, Round: Left Sclera/Conjunctival: Normal Inspection: Bilateral Anterior Chamber: Normal Inspection: Bilateral Posterior Chamber: Deferred: Bilateral - ENT ENT Exam: Normal Exam, Normal Oropharynx, Normal External Ear Exam, Mucous Membranes Moist (problems opening mouth all the way), TM's Normal Bilaterally - Neck Neck Exam: Normal Inspection, Full ROM, Trachea Midline - Chest Chest Inspection: Normal Inspection, Symmetric Chest Wall Rise - Respiratory Respiratory Exam: Normal Lung Sounds Bilat Respiratory Exam: Bilateral Clear to Auscultation - Cardiovascular Cardiovascular Exam: Regular Rate, Normal Rhythm, Normal Heart Sounds - Abdominal Exam Abdominal Exam: Normal Inspection, Normal Bowel Sounds, Soft, Tenderness (RUQ tenderness; surgical incision RUQ well approximated; no discharge or drainage) Abdominal Tenderness: RUQ, Moderate - Rectal Rectal Exam: Deferred - Extremeties Extremities Exam: Normal Inspection, Full ROM, Normal Capillary Refill. negative: Tenderness, Edema, Joint Swelling, Calf Tenderness, Other - Back Back Exam: Normal Inspection, Full ROM. negative: Tenderness, (R) CVA Tenderness, (L) CVA Tenderness, Muscle Spasm, Paraspinal Tenderness, Vertebral Tenderness, Rashes, (R) Sciatic Notch Tenderness, (L) Sciatic Notch Tendern, (R) Straight Leg Raise, (L) Straight Leg Raise, Other - Neurologic Neurological Exam: Alert, Oriented X3, CN II-XII Intact, Reflexes Normal. negative: Normal Gait (gait not tested) Patient Oriented To: Person, Place Speech: Fluid Speech Cranial Nerve Exam: EOM Function (II, III, IV, ): Normal, Facial Sensation (V): Normal, Facial Palsy (VII): Normal, Gag reflex (XI): Normal, Spinal Accessory Function (XI): Normal, Tongue Deviation: Normal Cerebellar Function: negative: Normal Gait (gait not tested) Motor Strength - LUE: 5/5 Motor Strength - RUE: 5/5 Motor Strength - LLE: 5/5 Motor Strength - RLE: 5/5 Sensory Exam Upper Extremity: Light Touch: Normal Sensory Exam Lower Extremity: Light Touch: Normal DTR: bicep (L): 2+, bicep (R): 2+, Patellar (L): 2+, patellar (R): 2+ - Psychiatric Psychiatric Exam: Normal Affect, Normal Mood. negative: Depressed, Agitated, Anxious, Flat Affect, Manic, Homicidal Ideation, Suicidal Ideation, Other - Skin Skin Exam: Warm, Dry, Intact, Normal Color. negative: Rash, Cyanosis, Diaphoresis, Erythema, Pallor, Mottled, Other - Vital Signs Vitals: Pulse Rate [Apical] 49 Pulse Rate 61 Respiratory Rate 20 Blood Pressure [Right Arm] 136/77 Blood Pressure 117/87 O2 Sat by Pulse Oximetry 97 Course - Reevaluation 1st: Improved - Consultation Called: 13:11 Call Returned: 13:42 (Dr. Brand to admit) - Education/Counseling Education/Counseling: Patient, Family Educated On: Treatment, Diagnosis, Needs for Follow Up ROR - Labs Reviewed Laboratory Results Reviewed?: Yes (All labs and x-ray results reviewed and dis cussed) Result Diagrams: 07/01/18 10:27 07/01/18 10:27 - XRAY XRAY Interpreted by: Radiologist (CT Head: Chronic arophy and microvascular ischemic changes with remote right frontal lobe infarction. Bilaterally maxillary sinusitis) XRAY Findings: CT abdomen and pelvis: No acute abnormality identified. CTA chest: Unremar - EKG Rate: 52 [place]: Normal Rhythm: NSR Block: None Hypertrophy: None ST: Nonsp - Labs Reviewed Laboratory: WBC 12.2 X10^3/uL (3.6-10.0) H 07/01/18 10:27 RBC 4.11 X10^6/uL (3.5-5.4) 07/01/18 10:27 Hgb 13.1 g/dL (12.0-16.0) 07/01/18 10:27 Hct 39.6 % (36.0-47.0) 07/01/18 10:27 MCV 96.3 fL (80.0-100.0) 07/01/18 10:27 MCH 31.8 pg (27.0-34.0) 07/01/18 10:27 MCHC 33.1 g/dL (33.0-35.0) 07/01/18 10:27 RDW 13.9 % (11.6-16.5) 07/01/18 10:27 Plt Count 355 X10^3/uL (150.0-450.0) 07/01/18 10:27 MPV 8.2 fL (7.4-11.0) 07/01/18 10:27 Neut % (Auto) 76.1 % (42.0-75.0) H 07/01/18 10:27 Lymph % (Auto) 13.2 % (21.0-51.0) L 07/01/18 10:27 [place] % (Auto) 8.1 % (0.0-13.0) 07/01/18 10:27 Eos % (Auto) 2.3 % (0.9-2.9) 07/01/18 10:27 Baso % (Auto) 0.3 % (0.2-1.0) 07/01/18 10:27 Neut # (Auto) 9.3 x10^3/uL (2.2-4.8) H 07/01/18 10:27 Lymph # (Auto) 1.6 X10^3/uL (1.3-2.9) 07/01/18 10:27 [place] # (Auto) 1.0 x10^3/uL (0.3-0.8) H 07/01/18 10:27 Eos # (Auto) 0.3 x10^3/uL (0.0-0.2) H 07/01/18 10:27 Baso # (Auto) 0.0 X10^3/uL (0.0-0.1) 07/01/18 10:27 Absolute Nucleated RBC 0.0 /100WBC 07/01/18 10:27 INR Target Range - 07/01/18 10:27 INR 1.10 (0.8-1.3) 07/01/18 10:27 APTT 30.5 SECONDS (22.9-36.5) 07/01/18 10:27 PTT Comment - 07/01/18 10:27 D-Dimer 2190 ng/mL (0-400) H* 07/01/18 10:27 Sodium 141 mmol/L (136-145) 07/01/18 10:27 Corrected Sodium 142 mmol/L (136-145) 07/01/18 10:27 Potassium 3.9 mmol/L (3.5-5.1) 07/01/18 10:27 Chloride 105 mmol/L (98-107) 07/01/18 10:27 Carbon Dioxide 25.5 mmol/L (21-32) 07/01/18 10:27 BUN 8 mg/dL (7-18) 07/01/18 10:27 Creatinine 1.03 mg/dL (0.55-1.02) H 07/01/18 10:27 Est GFR (MDRD) Af Amer > 60 (>60) 07/01/18 10:27 Est GFR (MDRD) Non-Af 56 (>60) L 07/01/18 10:27 Glucose 142 mg/dL (65-99) H 07/01/18 10:27 Calcium 8.7 mg/dL (8.5-10.1) 07/01/18 10:27 Corrected Calcium 9.4 mg/dL (8.5-10.1) 07/01/18 10:27 Magnesium 1.9 mg/dL (1.7-2.9) 07/01/18 10:27 Total Bilirubin 0.30 mg/dL (0.2-1.0) 07/01/18 10:27 AST 22 Units/L (15-37) 07/01/18 10:27 ALT 27 Units/L (12-78) 07/01/18 10:27 Alkaline Phosphatase 68 Units/L (46-116) 07/01/18 10:27 Creatine Kinase 56 Units/L (26-192) 07/01/18 10:27 CK-MB (CK-2) 3.6 ng/mL (0-4.0) 07/01/18 10:27 CK/CKMB % Calc 6.4 % (<4) 07/01/18 10:27 Troponin I 0.19 ng/mL (0-1.5) 07/01/18 10:27 Total Protein 6.7 g/dL (6.4-8.2) 07/01/18 10:27 Albumin 3.1 g/dL (3.4-5.0) L 07/01/18 10:27 Globulin 3.6 g/dL (2.5-4.5) 07/01/18 10:27 Albumin/Globulin Ratio 0.9 Ratio (1.1-2.1) L 07/01/18 10:27 Amylase 14 Units/L (25-115) L 07/01/18 10:27 Lipase 55 Units/L (73-393) L 07/01/18 10:27 - Diagnosis Discharge Problem: TIA (transient ischemic attack), Hyperglycemia, Right frontal lobe lesion, Sinus bradycardia, Pancreatic lesion Altered mental status Qualifiers: Altered mental status type: transient alteration of awareness Qualified Code(s): R40.4 - Transient alteration of awareness Acute maxillary sinusitis Qualifiers: Recurrence: not specified as recurrent Qualified Code(s): J01.00 - Acute maxillary sinusitis, unspecified - Discharge Plan Disposition: ADMITTED INPATIENT Condition: Stable - Follow ups/Referrals Follow ups/Referrals: Christoph Cage [Primary Care Provider] - 3 days - Instructions
[2018-07-01 10:39] LABS: BASOPHILS % (AUTO) 0.3 % (0.2-1.0); EOSINOPHILS # (AUTO) 0.3 x10^3/uL (0.0-0.2); EOSINOPHILS % (AUTO) 2.3 % (0.9-2.9); HEMATOCRIT 39.6 % (36.0-47.0); HEMOGLOBIN 13.1 g/dL (12.0-16.0); LYMPHOCYTES # (AUTO) 1.6 X10^3/uL (1.3-2.9); LYMPHOCYTES % (AUTO) 13.2 % (21.0-51.0); MEAN CORPUSCULAR HEMOGLOBIN 31.8 pg (27.0-34.0); MEAN CORPUSCULAR HGB CONC 33.1 g/dL (33.0-35.0); MEAN CORPUSCULAR VOLUME 96.3 fL (80.0-100.0); MEAN PLATELET VOLUME 8.2 fL (7.4-11.0); MONOCYTES % (AUTO) 8.1 % (0.0-13.0); NEUTROPHILS # (AUTO) 9.3 x10^3/uL (2.2-4.8); NEUTROPHILS % (AUTO) 76.1 % (42.0-75.0); PLATELET COUNT 355 X10^3/uL (150.0-450.0); RED BLOOD COUNT 4.11 X10^6/uL (3.5-5.4); RED CELL DISTRIBUTION WIDTH 13.9 % (11.6-16.5); WHITE BLOOD COUNT 12.2 X10^3/uL (3.6-10.0)
[2018-07-01 11:00] LABS: BLOOD UREA NITROGEN 8 mg/dL (7-18); CALCIUM 8.7 mg/dL (8.5-10.1); CARBON DIOXIDE 25.5 mmol/L (21-32); CHLORIDE 105 mmol/L (98-107); COR NA(FOR HYPERGLY) 142 mmol/L (136-145); CREATININE 1.03 mg/dL (0.55-1.02); SODIUM 141 mmol/L (136-145); eGFR NON BLACK RACES 56 (>60)
[2018-07-01] MEDS ORDERED: NS 1000 ML 1,000 ML IV SCH (11:00)
--- NOTE | 2018-07-01 11:05 | RAD ---
Examination: AP chest History: Nausea, SOB Comparison 06/23/2018 Findings: Continued normal heart size with clear lungs and pleural spaces. Impression: No change; no acute findings. Reported By:
[2018-07-01] MEDS ORDERED: NS 100 ML IV 100 ML IV ONE (11:14)
--- NOTE | 2018-07-01 11:18 | CT ---
HISTORY: Nausea, weakness Study: CT brain without contrast Comparison: 07/26/2015 Technique: Multiple axial images of the brain were obtained without administration of IV contrast. Dose reduction techniques including Automated Exposure Control (AEC) and adjustment of mA and kV were utilized. Findings: There is cerebral volume loss and nonspecific white matter hypoattenuation likely related to chronic microvascular ischemic changes. There is right frontal lobe encephalomalacia now present suggesting chronic infarction that has occurred in the interim. No evidence of acute hemorrhage, midline shift, mass effect or abnormal extra-axial fluid collection. Prominence of the ventricles and cortical sulci is commensurate with volume loss. The soft tissues and osseous structures are unremarkable. Bilateral maxillary sinus fluid and mucosal thickening is suggestive of sinusitis. IMPRESSION: 1. Chronic atrophy and microvascular ischemic changes with remote right frontal lobe infarction that has occurred in the interim since prior exam, correlate clinically. 2. Bilateral maxillary sinusitis. Reported By:
--- NOTE | 2018-07-01 11:33 | CT ---
HISTORY: Nausea, weakness, vomiting, gallbladder removed 3 days ago Study: CT abdomen and pelvis without contrast Comparison: 12/15/2017 Technique: Multiple axial images of the abdomen and pelvis were obtained without IV contrast. Dose reduction techniques including Automated Exposure Control (AEC) and adjustment of mA and kV were utilized. Findings: Please note evaluation is limited without use of IV contrast. There is partially visualized bilateral breast augmentation. The lung bases are clear. The liver, spleen and adrenal glands unremarkable. There is an ill-defined hypodense/cystic lesion again seen at the head of the pancreas as previously described. Gallbladder is removed. No fluid collections or stranding is seen gallbladder fossa. The bile ducts appear normal in caliber. No renal calculi or obstructive uropathy identified. No free intraperitoneal air. No evidence of intestinal obstruction or inflammation. Appendix is normal. No free fluid identified. Laparoscopic port sites are seen in the ventral abdomen related to recent cholecystectomy Multilevel thoracolumbar disc disease is present. Limited evaluation of vascular structures due to lack of contrast. No pathologically enlarged lymph nodes are identified. Normal urinary bladder. Uterus is removed. IMPRESSION: 1. No acute abnormality identified. 2. Surgical changes from recent cholecystectomy without apparent complication. 3. Redemonstrated hypodense/cystic pancreatic head lesion as previously described on prior MRI. Reported By:
--- NOTE | 2018-07-01 12:01 | CT ---
HISTORY: Elevated D-dimer Study: CTA chest with contrast Comparison: 07/06/2017 Technique: Multiple axial images of the chest were obtained from the thoracic inlet to the upper abdomen after the administration of IV contrast. 3D reconstructions utilizing axial MIPS imaging was performed and reviewed Findings: The mediastinum does not demonstrate significant pathological lymphadenopathy. There is no paracardial effusion observed. The thoracic aorta is normal in its contour without evidence for aneurysmal dilatation. The central pulmonary arterial system does not demonstrate central filling defects to suggest pulmonary emboli. Evaluation of the lung parenchyma fails to demonstrate focal consolidation or effusion. No pulmonary nodule or mass can be identified. The bony thorax is unremarkable in its appearance. The visualized portions of the upper abdomen are grossly unremarkable. IMPRESSION: 1. Unremarkable CT of the chest. Reported By:
[2018-07-01 12:08] LABS: ALANINE AMINOTRANSFERASE 27 Units/L (12-78); ALBUMIN 3.1 g/dL (3.4-5.0); ALKALINE PHOSPHATASE 68 Units/L (46-116); AMYLASE 14 Units/L (25-115); ASPARTATE AMINO TRANSFERASE 22 Units/L (15-37); CKMB % 6.4 % (<4); COR CA(FOR HYPOALB) 9.4 mg/dL (8.5-10.1); CREATINE KINASE 56 Units/L (26-192); CREATINE KINASE MB 3.6 ng/mL (0-4.0); LIPASE 55 Units/L (73-393); MAGNESIUM 1.9 mg/dL (1.7-2.9); TOTAL PROTEIN 6.7 g/dL (6.4-8.2); TROPONIN I 0.19 ng/mL (0-1.5)
[2018-07-01] MEDS ORDERED: ROCEPHIN VIAL 1 GRAM IVP ONE (12:33)
[2018-07-01] MEDS ORDERED: ROCEPHIN VIAL 1 GRAM ONE (12:57)
[2018-07-01] MEDS ORDERED: HumuLIN R SC PRN (13:59)
[2018-07-01 14:17] LABS: CHOL/HDL RATIO 3.3 (0.0-5.0)
[2018-07-01] MEDS: NORCO 5/325 MG TAB PO PRN (15:29)
[2018-07-01 15:35] VITALS: BMI 26.6
[2018-07-01] MEDS ORDERED: MAGNESIUM SULFATE 1 GRAM/100 mL PREMIX 1 GM/100 ML BAG IV PRN (16:44)
[2018-07-01] MEDS ORDERED: BENADRYL INJ 50 MG VIAL IV ONE (17:31)
[2018-07-01] MEDS ORDERED: PLAVIX ONE (17:37)
[2018-07-01] MEDS ORDERED: BENADRYL INJ 50 MG VIAL ONE (17:37)
[2018-07-01] MEDS: NS 1/2 + KCL 20 MEQ/L 1,000 ML IV SCH ×2 (17:53→20:32)
[2018-07-01] MEDS ORDERED: PLAVIX PO SCH (18:00)
[2018-07-01] MEDS: HALDOL INJ IVP PRN (19:54)
[2018-07-01] MEDS: BENTYL CAP 10 MG PO SCH (20:11)
[2018-07-01] MEDS: CRESTOR TAB 10 MG PO SCH (20:12)
[2018-07-01] MEDS: NAMENDA TAB 10 MG PO SCH (20:14)
[2018-07-01] MEDS: BUSPAR PO SCH (20:14)
[2018-07-01] MEDS: K-DUR TAB 20 MEQ PO SCH (20:15)
[2018-07-01] MEDS: OXYBUTYNIN CHLORIDE ER PO SCH (20:16)
[2018-07-01] MEDS: INDERAL TAB 10 MG PO SCH (20:17)
[2018-07-01] MEDS: ZyPREXA TAB 5 MG PO SCH (20:27)
[2018-07-01] MEDS ORDERED: CIPRO TAB 500 MG PO SCH (21:00)
[2018-07-01 21:24] LABS: BILIRUBIN,URINE NEGATIVE (NEGATIVE); BLOOD/HEMOGLOBIN,URINE 1+ (NEGATIVE); GLUCOSE, URINE NEGATIVE (NEGATIVE); KETONES,URINE NEGATIVE (NEGATIVE); LEUKOCYTE ESTERASE ,URINE 2+ (NEGATIVE); NITRITES,URINE NEGATIVE (NEGATIVE); PROTEIN,URINE NEGATIVE (NEGATIVE); UROBILINOGEN,URINE NORMAL (NORMAL)
[2018-07-01 21:51] LABS: AMORPHOUS SEDIMENT,UR TRACE /HPF (NEGATIVE); APPEARANCE,URINE CLEAR (CLEAR); BACTERIA,URINE TRACE /HPF (NEGATIVE); COLOR,URINE YELLOW (YELLOW); RBC,URINE 0-2 /HPF (NONE SEEN); SQUAMOUS EPITHELIAL CELL,UR FEW /HPF (NEGATIVE)
[2018-07-01] MEDS: XANAX PO SCH (22:24)
[2018-07-01] MEDS: TESSALON PERLES PO SCH (22:24)
[2018-07-02] MEDS: BENADRYL INJ 50 MG VIAL IV PRN ×3 (04:59→21:14)
[2018-07-02] MEDS: XANAX PO SCH ×3 (05:00→21:00)
[2018-07-02] MEDS: TESSALON PERLES PO SCH ×3 (05:00→21:00)
[2018-07-02 05:24] LABS: BASOPHILS % (AUTO) 0.4 % (0.2-1.0); EOSINOPHILS # (AUTO) 0.3 x10^3/uL (0.0-0.2); EOSINOPHILS % (AUTO) 2.7 % (0.9-2.9); HEMATOCRIT 38.5 % (36.0-47.0); HEMOGLOBIN 13.2 g/dL (12.0-16.0); LYMPHOCYTES # (AUTO) 1.8 X10^3/uL (1.3-2.9); LYMPHOCYTES % (AUTO) 17.1 % (21.0-51.0); MEAN CORPUSCULAR HEMOGLOBIN 32.7 pg (27.0-34.0); MEAN CORPUSCULAR HGB CONC 34.1 g/dL (33.0-35.0); MEAN CORPUSCULAR VOLUME 95.8 fL (80.0-100.0); MEAN PLATELET VOLUME 8.2 fL (7.4-11.0); MONOCYTES % (AUTO) 9.4 % (0.0-13.0); NEUTROPHILS # (AUTO) 7.2 x10^3/uL (2.2-4.8); NEUTROPHILS % (AUTO) 70.4 % (42.0-75.0); PLATELET COUNT 336 X10^3/uL (150.0-450.0); RED BLOOD COUNT 4.02 X10^6/uL (3.5-5.4); RED CELL DISTRIBUTION WIDTH 13.9 % (11.6-16.5); WHITE BLOOD COUNT 10.2 X10^3/uL (3.6-10.0)
[2018-07-02 05:32] LABS: ALANINE AMINOTRANSFERASE 19 Units/L (12-78); ALBUMIN 3.2 g/dL (3.4-5.0); ALKALINE PHOSPHATASE 67 Units/L (46-116); ASPARTATE AMINO TRANSFERASE 23 Units/L (15-37); BLOOD UREA NITROGEN 4 mg/dL (7-18); CARBON DIOXIDE 24.1 mmol/L (21-32); CHLORIDE 105 mmol/L (98-107); COR CA(FOR HYPOALB) 9.6 mg/dL (8.5-10.1); CREATININE 0.91 mg/dL (0.55-1.02); SODIUM 138 mmol/L (136-145); TOTAL PROTEIN 6.8 g/dL (6.4-8.2); eGFR NON BLACK RACES > 60 (>60)
[2018-07-02] MEDS: SYNTHROID 75 mcg TAB PO SCH ×2 (06:19→16:44)
[2018-07-02] MEDS: NS 1/2 + KCL 20 MEQ/L 1,000 ML IV SCH ×3 (06:57→18:41)
[2018-07-02] MEDS: HALDOL INJ IVP PRN ×2 (07:26→18:44)
[2018-07-02] MEDS: PROTONIX TAB 40 MG PO SCH (08:45)
[2018-07-02] MEDS: INDERAL TAB 10 MG PO SCH ×2 (08:45→21:03)
[2018-07-02] MEDS: NAMENDA TAB 10 MG PO SCH ×2 (08:45→21:00)
[2018-07-02] MEDS: ZyPREXA TAB 5 MG PO SCH ×2 (08:45→21:13)
[2018-07-02] MEDS: BENTYL CAP 10 MG PO SCH ×2 (08:45→21:02)
[2018-07-02] MEDS: BUSPAR PO SCH ×2 (08:45→21:03)
[2018-07-02] MEDS: PROzac PO SCH (08:45)
[2018-07-02] MEDS: FOLIC ACID TAB 1 MG PO SCH (08:45)
[2018-07-02] MEDS: K-DUR TAB 20 MEQ PO SCH ×2 (08:45→21:01)
[2018-07-02] MEDS: ECOTRIN TAB 325 MG PO SCH (08:45)
[2018-07-02] MEDS ORDERED: VALIUM INJ IVP PRN (09:48)
[2018-07-02] MEDS ORDERED: ZOFRAN INJ 4 MG VIAL IVP PRN (09:48)
--- NOTE | 2018-07-02 11:08 | DR.H&P ---
H&P - History & Physical for Day of: H&P Date: 07/01/18 - Chief Complaint Chief Complaint: AMS - History of Present Illness History of Present Illness: 73 WF ER ADMISSION WITH CO Patient complains of nausea, vomiting, RUQ pain, cough with SOB for the past 24 hours getting worst this morning. Family relates patient with gallbladder surgery three days ago with no problems initially but vomitted copious yellow secretions on the way to the emergency room today. EMS states they gave her some zofran enroute to the emergency room. Family state her appetite has been decreased and she started feeling bad about 30 minutes ago. She is a patient of Dr. Cage and is suffering from dementia as related by family members. Family states she fell against the wall going to the bathroom today with her eyes deviated with problems focusing until recently. PT HAD CT HEAD, CHEST , ABDOMEN IN ER WITHOUT ACUTE FINDINGS. PT DOES HAVE HX OF OLD CVA. PT HAS HX CAD, COPD, HTN, CVA, DEMENTIA, OA. P T ADMITTED FOR TREATMENT OF ACUTE ILLNESS R/O CVA - Past Medical History Past Medical History: Anxiety, Arthritis, COPD, CVA, Dementia, Hypertension, Hyperthyroidism - Past Surgical History Surgical History: Cholecystectomy, Hysterectomy, Ortho Surgery - Family History Family Medical History: Cancer - Social History Does patient currently use any type of tobacco product: No Have you used tobacco products in the last 12 months: No Type of Tobacco Use: None Does any household member use tobacco: No Alcohol Use: None Drug Use: None - Medications Home Medications: beeswax Allergy (Verified 12/16/17 05:05) morphine Allergy (Verified 12/16/17 05:05) nifedipine Allergy (Verified 12/16/17 05:05) CONTINUE taking the following medications alprazolam 0.25 mg PO BID PRN 07/01/18 [History] aspirin 325 mg PO QDAY 07/01/18 [History] benzonatate 200 mg PO TID 07/01/18 [History] buspirone 20 mg PO BID 07/01/18 [History] ciprofloxacin HCl 750 mg PO BID 07/01/18 [History] dicyclomine 10 mg PO BID 07/01/18 [History] fluoxetine 20 mg PO DAILY 07/01/18 [History] folic acid 1 mg PO DAILY 07/01/18 [History] hydrocodone-acetaminophen 5 - 325 mg PO Q4HR PRN 07/01/18 [History] olanzapine 5 mg PO 0900,1800 07/01/18 [History] - Review of Systems Constitutional: Weakness Eyes: No Symptoms Reported ENT: No Symptoms Reported Respiratory: No Symptoms Reported Cardiovascular: No Symptoms Reported Gastrointestinal: Nausea, Vomiting, Abdominal Pain Genitourinary: No Symptoms Reported Musculoskeletal: Back Pain Skin: No Symptoms Reported Neurological: Weakness, Confusion - Physical Exam Vital Signs: Temperature 98.1 F Pulse Rate [Apical] 53 Pulse Rate 61 Respiratory Rate 20 Blood Pressure [Left Arm] 138/77 Blood Pressure [Right Arm] 119/61 Blood Pressure 117/87 O2 Sat by Pulse Oximetry 97 Oriented: Person Eyes: Normal Ear: Normal Nose: Normal Throat: Dry Respiratory: RLL Diminished, LLL Diminished Cardiovascular: Normal : Normal Auscultation: Bowel Sounds: Normal Palpation: Normal Tenderness: RUQ Skin: Wound Musculoskeletal: Right, Left, Leg, Instability Psychiatric: Anxiety, Agitation Mood Description: Anxious Affect: Anxious Speech Pattern: Appropriate, Inappropriate - Assessment/Plan (1) Abdominal pain Qualifiers: Abdominal location: generalized Qualified Code(s): R10.84 - Generalized abdominal pain Status: Acute (2) Hypertension Status: Acute (3) Altered mental status Qualifiers: Altered mental status type: transient alteration of awareness Qualified Code(s): R40.4 - Transient alteration of awareness Status: Acute Plan: ADMIT, VERIFY AND RESUME HOME MEDICATION, GENTLE IV HYDRATION. PAIN AND NAUSEA CONTROL, UC, BC ON ADMISSION. POST OPERATIVE WOUND CARE, I & OS. ASPIRIN STATIN BP CONTROL. REPEAT AM LABS (4) Hypothyroidism Qualifiers: Hypothyroidism type: acquired Qualified Code(s): E03.9 - Hypothyroidism, unspecified Status: Acute (5) TIA (transient ischemic attack) Status: Acute - Allergies Allergies/Adverse Reactions: Allergies Allergy/AdvReac Type Severity Reaction Status Date / Time beeswax Allergy Verified 12/16/17 05:05 morphine Allergy Verified 12/16/17 05:05 nifedipine Allergy Verified 12/16/17 05:05
[2018-07-02] MEDS: OXYBUTYNIN CHLORIDE ER PO SCH (21:01)
[2018-07-02] MEDS: CRESTOR TAB 10 MG PO SCH (21:02)
[2018-07-03 05:19] LABS: BASOPHILS % (AUTO) 0.6 % (0.2-1.0); EOSINOPHILS # (AUTO) 0.3 x10^3/uL (0.0-0.2); EOSINOPHILS % (AUTO) 3.9 % (0.9-2.9); HEMATOCRIT 36.6 % (36.0-47.0); HEMOGLOBIN 12.3 g/dL (12.0-16.0); LYMPHOCYTES # (AUTO) 1.5 X10^3/uL (1.3-2.9); LYMPHOCYTES % (AUTO) 17.7 % (21.0-51.0); MEAN CORPUSCULAR HEMOGLOBIN 32.7 pg (27.0-34.0); MEAN CORPUSCULAR HGB CONC 33.6 g/dL (33.0-35.0); MEAN CORPUSCULAR VOLUME 97.1 fL (80.0-100.0); MEAN PLATELET VOLUME 8.5 fL (7.4-11.0); MONOCYTES # (AUTO) 0.7 x10^3/uL (0.3-0.8); MONOCYTES % (AUTO) 8.3 % (0.0-13.0); NEUTROPHILS % (AUTO) 69.5 % (42.0-75.0); PLATELET COUNT 309 X10^3/uL (150.0-450.0); RED BLOOD COUNT 3.77 X10^6/uL (3.5-5.4); RED CELL DISTRIBUTION WIDTH 13.9 % (11.6-16.5); WHITE BLOOD COUNT 8.7 X10^3/uL (3.6-10.0)
[2018-07-03 05:27] LABS: ALANINE AMINOTRANSFERASE 18 Units/L (12-78); ALBUMIN 2.9 g/dL (3.4-5.0); ALKALINE PHOSPHATASE 58 Units/L (46-116); ASPARTATE AMINO TRANSFERASE 27 Units/L (15-37); BLOOD UREA NITROGEN 3 mg/dL (7-18); CALCIUM 8.4 mg/dL (8.5-10.1); CARBON DIOXIDE 23.7 mmol/L (21-32); CHLORIDE 102 mmol/L (98-107); COR CA(FOR HYPOALB) 9.3 mg/dL (8.5-10.1); CREATININE 0.84 mg/dL (0.55-1.02); SODIUM 136 mmol/L (136-145); TOTAL PROTEIN 6.2 g/dL (6.4-8.2); eGFR NON BLACK RACES > 60 (>60)
[2018-07-03] MEDS: XANAX PO SCH ×3 (05:40→08:19)
[2018-07-03] MEDS: TESSALON PERLES PO SCH ×4 (05:40→21:34)
[2018-07-03] MEDS: NS 1/2 + KCL 20 MEQ/L 1,000 ML IV SCH ×2 (05:48→19:09)
[2018-07-03] MEDS: BENTYL CAP 10 MG PO SCH ×2 (08:18→20:35)
[2018-07-03] MEDS: FOLIC ACID TAB 1 MG PO SCH (08:18)
[2018-07-03] MEDS: PROTONIX TAB 40 MG PO SCH (08:18)
[2018-07-03] MEDS: K-DUR TAB 20 MEQ PO SCH ×2 (08:18→20:36)
[2018-07-03] MEDS: ECOTRIN TAB 325 MG PO SCH (08:18)
[2018-07-03] MEDS: NAMENDA TAB 10 MG PO SCH ×2 (08:19→20:34)
[2018-07-03] MEDS: PROzac PO SCH (08:19)
[2018-07-03] MEDS: ZyPREXA TAB 5 MG PO SCH ×3 (08:19→17:48)
[2018-07-03] MEDS: BUSPAR PO SCH ×2 (08:20→20:34)
[2018-07-03] MEDS: INDERAL TAB 10 MG PO SCH ×2 (08:23→20:36)
--- NOTE | 2018-07-03 11:40 | RAD ---
History: Shortness of breath Study: AP chest Comparison: July 01 Findings: There is no significant change. The heart size is prominent. The lungs are grossly clear. There is no edema or effusion. There are surgically absent. Impression: No acute disease Reported By:
[2018-07-03] MEDS: FORTAZ or TAZICEF VIAL INJ IVP SCH ×3 (13:15→21:34)
[2018-07-03] MEDS: KLONOPIN TAB 0.5 MG PO SCH ×2 (13:15→20:34)
[2018-07-03] MEDS: PLAVIX PO SCH (13:32)
[2018-07-03] MEDS: SYNTHROID 75 mcg TAB PO SCH (17:47)
[2018-07-03] MEDS: BENADRYL INJ 50 MG VIAL IV PRN (20:34)
[2018-07-03] MEDS: CRESTOR TAB 10 MG PO SCH (20:35)
[2018-07-03] MEDS: OXYBUTYNIN CHLORIDE ER PO SCH (20:36)
[2018-07-04 05:16] LABS: BASOPHILS # (AUTO) 0.1 X10^3/uL (0.0-0.1); BASOPHILS % (AUTO) 0.5 % (0.2-1.0); EOSINOPHILS # (AUTO) 0.3 x10^3/uL (0.0-0.2); EOSINOPHILS % (AUTO) 2.9 % (0.9-2.9); HEMATOCRIT 40.2 % (36.0-47.0); HEMOGLOBIN 13.5 g/dL (12.0-16.0); LYMPHOCYTES # (AUTO) 1.6 X10^3/uL (1.3-2.9); LYMPHOCYTES % (AUTO) 17.4 % (21.0-51.0); MEAN CORPUSCULAR HEMOGLOBIN 32.4 pg (27.0-34.0); MEAN CORPUSCULAR HGB CONC 33.5 g/dL (33.0-35.0); MEAN CORPUSCULAR VOLUME 96.6 fL (80.0-100.0); MEAN PLATELET VOLUME 8.3 fL (7.4-11.0); MONOCYTES # (AUTO) 0.8 x10^3/uL (0.3-0.8); MONOCYTES % (AUTO) 8.9 % (0.0-13.0); NEUTROPHILS # (AUTO) 6.6 x10^3/uL (2.2-4.8); NEUTROPHILS % (AUTO) 70.3 % (42.0-75.0); PLATELET COUNT 309 X10^3/uL (150.0-450.0); RED BLOOD COUNT 4.17 X10^6/uL (3.5-5.4); RED CELL DISTRIBUTION WIDTH 14.1 % (11.6-16.5); WHITE BLOOD COUNT 9.4 X10^3/uL (3.6-10.0)
[2018-07-04 05:32] LABS: ALANINE AMINOTRANSFERASE 22 Units/L (12-78); ALKALINE PHOSPHATASE 65 Units/L (46-116); ASPARTATE AMINO TRANSFERASE 40 Units/L (15-37); BLOOD UREA NITROGEN 3 mg/dL (7-18); CALCIUM 8.9 mg/dL (8.5-10.1); CARBON DIOXIDE 26.9 mmol/L (21-32); CHLORIDE 105 mmol/L (98-107); COR CA(FOR HYPOALB) 9.7 mg/dL (8.5-10.1); CREATININE 0.86 mg/dL (0.55-1.02); SODIUM 140 mmol/L (136-145); TOTAL PROTEIN 6.6 g/dL (6.4-8.2); eGFR NON BLACK RACES > 60 (>60)
[2018-07-04] MEDS: FORTAZ or TAZICEF VIAL INJ IVP SCH ×3 (05:33→21:00)
[2018-07-04] MEDS: NS 1/2 + KCL 20 MEQ/L 1,000 ML IV SCH ×3 (05:34→20:47)
[2018-07-04] MEDS: TESSALON PERLES PO SCH ×3 (05:34→21:00)
[2018-07-04] MEDS: BENADRYL INJ 50 MG VIAL IV PRN ×2 (07:46→21:36)
[2018-07-04] MEDS: NORCO 5/325 MG TAB PO PRN ×3 (07:46→21:35)
[2018-07-04] MEDS: K-DUR TAB 20 MEQ PO SCH ×2 (08:33→20:49)
[2018-07-04] MEDS: PROzac PO SCH (08:33)
[2018-07-04] MEDS: BENTYL CAP 10 MG PO SCH ×2 (08:34→20:50)
[2018-07-04] MEDS: ECOTRIN TAB 325 MG PO SCH (08:34)
[2018-07-04] MEDS: KLONOPIN TAB 0.5 MG PO SCH ×2 (08:34→20:50)
[2018-07-04] MEDS: NAMENDA TAB 10 MG PO SCH ×2 (08:34→20:50)
--- NOTE | 2018-07-04 08:34 | PCM.PROG ---
Progress Note - Progress Note for Day of Date of Exam: 07/03/18 - Subjective Subjective: WAS ADMITTED ON 07/01 FOR ALTERED MENTAL STATUS, WEAKNESS, AND SHORTNESS OF BREATH. PATIENT REPORTS GALLBLADDER SURGERY 36 DAYS PRIOR TO ARRIVAL. SHE DENIES COMPLICATIONS FROM SURGERY, BESIDES AN EPISODE OF VOMITING ON THE WAY TO THE HOSPITAL. FAMILY REPORTS THAT SHE FELL AT HOME EARLIER AND HER EYES WERE NOTED TO BE DEVIATED WITH PROBLEMS FOCUSING UNTIL ARRIVING AT THE HOSPITAL. ON ADMISSION, BRAIN CT REVEALED: Chronic atrophy and microvascular ischemic changes with remote right frontal lobe infarction that has occurred in the interim since prior exam, correlate clinically. Bilateral maxillary sinusitis.TODAY, SHE IS ALERT AND ORIENTED, LYING IN BED ON MORNING ROUNDS. SHE IS NOTED WITH COMPLAINTS OF WEAKNESS, SHORTNESS OF BREATH, NON-PRODUCTIVE COUGH, AND NASAL CONGESTION. FAMILY REPORTS THAT SHE WAS AGITATED THROUGHOUT THE NIGHT AND ATTEMPTING TO CLIMB OUT OF BED. PATIENT DOES HAVE A HISTORY OF DEMENTIA. HER VITALS THIS MORNING ARE 98.0-84-20-94%-136/78. LABS WERE OBTAINED. ABNORMAL LAB VALUES INCLUDE THE FOLLOWING: BUN 3, CALCIUM 8.4, TOTAL PROTEIN 6.2, ALBUMIN 2.9. TODAY, WE WILL START PLAVIX 75MG PO DAILY, FORTAZ 1GM IV Q8H, KLONOPIN 0.5MG PO BID, AND OBTAIN A CHEST XRAY. OTHERWISE, WE WILL FOLLOW UP WITH AM LABS AND CONTINUE TO MONITOR. - Past Medical Family Social History Past Med/Fam/Surg Hx: No changes since H&P Allergies: Allergies beeswax Allergy (Verified 12/16/17 05:05) morphine Allergy (Verified 12/16/17 05:05) nifedipine Allergy (Verified 12/16/17 05:05) - Review of Systems ROS: No change since H&P - Vital Signs and I&O's Vital Signs: Temperature 97.9 F Pulse Rate [Left Radial] 52 Pulse Rate [Apical] 86 Pulse Rate 61 Respiratory Rate 20 Blood Pressure [Left Arm] 138/73 Blood Pressure [Right Arm] 119/61 Blood Pressure 117/87 O2 Sat by Pulse Oximetry 97 Intake and Output: Intake & Output 07/01/18 07/02/18 07/03/18 07/04/18 11:59 11:59 11:59 11:59 Intake Total 440 / 440 320 / 320 1210 / 1210 Output Total 0 / 0 Balance 440 / 440 320 / 320 1210 / 1210 - Physical Exam Oriented: Person Eyes: Normal Ear: Normal Nose: Normal Throat: Dry Respiratory: Generalized, Diminished Cardiovascular: Normal : Normal Auscultation: Bowel Sounds: Normal Palpation: Normal Tenderness: Normal Skin: Wound Musculoskeletal: Right, Left, Leg, Instability Psychiatric: Anxiety, Agitation Mood Description: Calm, Appropriate Affect: Anxious Speech Pattern: Clear, Appropriate - Laboratory and Diagnostics Result Diagrams: 07/04/18 04:50 07/04/18 04:50 Labs: 07/01/18 21:10 Urine,Clean Catch Urine Culture - Final Laboratory WBC 9.4 X10^3/uL (3.6-10.0) 07/04/18 04:50 RBC 4.17 X10^6/uL (3.5-5.4) 07/04/18 04:50 Hgb 13.5 g/dL (12.0-16.0) 07/04/18 04:50 Hct 40.2 % (36.0-47.0) 07/04/18 04:50 MCV 96.6 fL (80.0-100.0) 07/04/18 04:50 MCH 32.4 pg (27.0-34.0) 07/04/18 04:50 MCHC 33.5 g/dL (33.0-35.0) 07/04/18 04:50 RDW 14.1 % (11.6-16.5) 07/04/18 04:50 Plt Count 309 X10^3/uL (150.0-450.0) 07/04/18 04:50 MPV 8.3 fL (7.4-11.0) 07/04/18 04:50 Neut % (Auto) 70.3 % (42.0-75.0) 07/04/18 04:50 Lymph % (Auto) 17.4 % (21.0-51.0) L 07/04/18 04:50 [place] % (Auto) 8.9 % (0.0-13.0) 07/04/18 04:50 Eos % (Auto) 2.9 % (0.9-2.9) 07/04/18 04:50 Baso % (Auto) 0.5 % (0.2-1.0) 07/04/18 04:50 Neut # (Auto) 6.6 x10^3/uL (2.2-4.8) H 07/04/18 04:50 Lymph # (Auto) 1.6 X10^3/uL (1.3-2.9) 07/04/18 04:50 [place] # (Auto) 0.8 x10^3/uL (0.3-0.8) 07/04/18 04:50 Eos # (Auto) 0.3 x10^3/uL (0.0-0.2) H 07/04/18 04:50 Baso # (Auto) 0.1 X10^3/uL (0.0-0.1) 07/04/18 04:50 Absolute Nucleated RBC 0.0 /100WBC 07/04/18 04:50 INR Target Range - 07/01/18 10:27 INR 1.10 (0.8-1.3) 07/01/18 10:27 APTT 30.5 SECONDS (22.9-36.5) 07/01/18 10:27 PTT Comment - 07/01/18 10:27 D-Dimer 2190 ng/mL (0-400) H* 07/01/18 10:27 Sodium 140 mmol/L (136-145) 07/04/18 04:50 Corrected Sodium TNP 07/04/18 04:50 Potassium 4.1 mmol/L (3.5-5.1) 07/04/18 04:50 Chloride 105 mmol/L (98-107) 07/04/18 04:50 Carbon Dioxide 26.9 mmol/L (21-32) 07/04/18 04:50 BUN 3 mg/dL (7-18) L 07/04/18 04:50 Creatinine 0.86 mg/dL (0.55-1.02) 07/04/18 04:50 Est GFR (MDRD) Af Amer > 60 (>60) 07/04/18 04:50 Est GFR (MDRD) Non-Af > 60 (>60) 07/04/18 04:50 Glucose 102 mg/dL (65-99) H 07/04/18 04:50 POC Glucose (mg/dL) 94 mg/dL (65-99) 07/04/18 05:46 Calcium 8.9 mg/dL (8.5-10.1) 07/04/18 04:50 Corrected Calcium 9.7 mg/dL (8.5-10.1) 07/04/18 04:50 Magnesium 1.9 mg/dL (1.7-2.9) 07/01/18 10:27 Total Bilirubin 0.30 mg/dL (0.2-1.0) 07/04/18 04:50 AST 40 Units/L (15-37) H 07/04/18 04:50 ALT 22 Units/L (12-78) 07/04/18 04:50 Alkaline Phosphatase 65 Units/L (46-116) 07/04/18 04:50 Creatine Kinase 56 Units/L (26-192) 07/01/18 10:27 CK-MB (CK-2) 3.6 ng/mL (0-4.0) 07/01/18 10:27 CK/CKMB % Calc 6.4 % (<4) 07/01/18 10:27 Troponin I 0.19 ng/mL (0-1.5) 07/01/18 10:27 Total Protein 6.6 g/dL (6.4-8.2) 07/04/18 04:50 Albumin 3.0 g/dL (3.4-5.0) L 07/04/18 04:50 Globulin 3.6 g/dL (2.5-4.5) 07/04/18 04:50 Albumin/Globulin Ratio 0.8 Ratio (1.1-2.1) L 07/04/18 04:50 Triglycerides 146 mg/dL (0-150) 07/01/18 10:27 Cholesterol 113 mg/dL (0-200) 07/01/18 10:27 LDL Cholesterol, Calc 50 mg/dL (0-100) 07/01/18 10:27 HDL Cholesterol 34 mg/dL (40-60) L 07/01/18 10:27 Cholesterol/HDL Ratio 3.3 (0.0-5.0) 07/01/18 10:27 Amylase 14 Units/L (25-115) L 07/01/18 10:27 Lipase 55 Units/L (73-393) L 07/01/18 10:27 Specimen Type Clean catch urine 07/01/18 21:10 Urine Color Yellow (YELLOW) 07/01/18 21:10 Urine Appearance Clear (CLEAR) 07/01/18 21:10 Urine pH 5.0 (5.0 - 8.0) 07/01/18 21:10 Ur Specific [place] 1.005 (1.000-1.030) 07/01/18 21:10 Urine Protein Negative (NEGATIVE) 07/01/18 21:10 Urine Glucose (UA) Negative (NEGATIVE) 07/01/18 21:10 Urine Ketones Negative (NEGATIVE) 07/01/18 21:10 Urine Occult Blood 1+ (NEGATIVE) 07/01/18 21:10 Urine Nitrite Negative (NEGATIVE) 07/01/18 21:10 Urine Bilirubin Negative (NEGATIVE) 07/01/18 21:10 Urine Urobilinogen Normal (NORMAL) 07/01/18 21:10 Ur Leukocyte Esterase 2+ (NEGATIVE) 07/01/18 21:10 Urine RBC 0-2 /HPF (NONE SEEN) 07/01/18 21:10 Urine WBC 0-2 /HPF (NONE SEEN) 07/01/18 21:10 Ur Squamous Epith Cells Few /HPF (NEGATIVE) 07/01/18 21:10 Amorphous Sediment Trace /HPF (NEGATIVE) 07/01/18 21:10 Urine Bacteria Trace /HPF (NEGATIVE) 07/01/18 21:10 Ur Culture Indicated? Yes/culture set up 07/01/18 21:10 - Plan (1) CVA (cerebral vascular accident) Status: Acute Qualifiers: CVA mechanism: unspecified Qualified Code(s): I63.9 - Cerebral infarction, unspecified Plan: CONTINUE PLAVIX, CONTINUE STATINS, BLOOD PRESSURE CONTROL, CONTINUE TO MONITOR (2) Acute maxillary sinusitis Status: Acute Qualifiers: Recurrence: not specified as recurrent Qualified Code(s): J01.00 - Acute maxillary sinusitis, unspecified Plan: FORTAZ 1GM IV Q8H, CONTINUE TO MONITOR (3) Altered mental status Status: Acute Qualifiers: Altered mental status type: transient alteration of awareness Qualified Code(s): R40.4 - Transient alteration of awareness (4) Hyperglycemia Status: Acute Plan: CONTINUE HOME MEDS, CONTINUE TO MONITOR (5) Hypertension Status: Acute Qualifiers: Hypertension type: essential hypertension Qualified Code(s): I10 - Essential (primary) hypertension Plan: CONTINUE HOME MEDS, CONTINUE TO MONITOR (6) Hypothyroidism Status: Acute Qualifiers: Hypothyroidism type: acquired Qualified Code(s): E03.9 - Hypothyroidism, unspecified Plan: CONTINUE HOME MEDS, CONTINUE TO MONITOR.
[2018-07-04] MEDS: PROTONIX TAB 40 MG PO SCH (08:35)
[2018-07-04] MEDS: BUSPAR PO SCH ×2 (08:35→20:50)
[2018-07-04] MEDS: ZyPREXA TAB 5 MG PO SCH ×2 (08:35→17:45)
[2018-07-04] MEDS: FOLIC ACID TAB 1 MG PO SCH (08:35)
[2018-07-04] MEDS: INDERAL TAB 10 MG PO SCH (08:36)
[2018-07-04] MEDS: DUONEB 0.5 MG/3 MG NEB SCH ×4 (08:52→20:46)
[2018-07-04] MEDS: PLAVIX PO SCH (08:56)
[2018-07-04 15:19] LABS: CKMB % 4.9 % (<4)
[2018-07-04 15:24] LABS: CREATINE KINASE MB 6.6 ng/mL (0-4.0); TROPONIN I 2.61 ng/mL (0-1.5)
[2018-07-04] MEDS: SYNTHROID 75 mcg TAB PO SCH (16:31)
--- NOTE | 2018-07-04 19:50 | PCM.PROG ---
Progress Note - Progress Note for Day of Date of Exam: 07/04/18 - Subjective Subjective: WAS ADMITTED ON 07/01. SHE IS BEING TREATED FOR CVA, ACUTE MAXILLARY SINUSITIS, AND ALLTERED MENTAL STATUS. TODAY, SHE IS ALERT AND ORIENTED, STANDING AT SINK ON MORNING ROUNDS. SHE MADE HER WAY TO THE RECLIN[facility] WITH ASSISTANCE OF STAFF AND A WALKER. SHE CONTINUES WITH COMPLAINTS OF WEAKN ESS, SHORTNESS OF BREATH, NON-PRODUCTIVE COUGH, AND NASAL CONGESTION. SHE ALSO REPORTS A SORE THROAT AND DIFFICULTY SWALLOWING TODAY. FAMILY REPORTS THAT SHE RESTED BETTER THROUGHOUT THE NIGHT. VITALS THIS MORNING ARE 97.6-66-18-96%-149/75. LABS WERE OBTAINED. ABNORMAL LAB VALUES INCLUDE THE FOLLOWING: BUN 3, GLUCOSE 102, AST 40, ALBUMIN 3.0. TODAY, WE WILL CONTINUE WITH IV HYDRATION, IV ANTIBIOTICS, RESPIRATORY TREATMENTS, AND CURRENT PLAN OF CARE. PHYSICAL THERAPY WILL WORK WITH PATIENT MORE TODAY. OTHERWISE, WE WILL FOLLOW UP WITH AM LABS AND CONTINUE TO MONITOR. - Past Medical Family Social History Past Med/Fam/Surg Hx: No changes since H&P Allergies: Allergies beeswax Allergy (Verified 12/16/17 05:05) morphine Allergy (Verified 12/16/17 05:05) nifedipine Allergy (Verified 12/16/17 05:05) - Review of Systems ROS: No change since H&P - Vital Signs and I&O's Vital Signs: Temperature 98.1 F Pulse Rate [Left Radial] 62 Pulse Rate [Apical] 86 Pulse Rate 55 Respiratory Rate 20 Blood Pressure [Left Arm] 193/99 Blood Pressure [Right Arm] 119/61 Blood Pressure 117/87 O2 Sat by Pulse Oximetry 96 Intake and Output: Intake & Output 07/02/18 07/03/18 07/04/18 07/05/18 11:59 11:59 11:59 11:59 Intake Total 440 / 440 320 / 320 1210 / 1210 480 / 480 Output Total 0 / 0 Balance 440 / 440 320 / 320 1210 / 1210 480 / 480 - Physical Exam Oriented: Person Eyes: Normal Ear: Normal Nose: Normal Throat: Dry Respiratory: Generalized, Diminished Cardiovascular: Normal : Normal Auscultation: Bowel Sounds: Normal Palpation: Normal Tenderness: Normal Skin: Wound Musculoskeletal: Right, Left, Leg, Instability Psychiatric: Anxiety, Agitation Mood Description: Calm, Appropriate Affect: Anxious Speech Pattern: Clear, Appropriate - Laboratory and Diagnostics Result Diagrams: 07/04/18 04:50 07/04/18 04:50 Labs: 07/02/18 12:06 Blood Blood Culture - Preliminary 07/02/18 11:31 Blood Blood Culture - Preliminary 07/01/18 21:10 Urine,Clean Catch Urine Culture - Final Laboratory WBC 9.4 X10^3/uL (3.6-10.0) 07/04/18 04:50 RBC 4.17 X10^6/uL (3.5-5.4) 07/04/18 04:50 Hgb 13.5 g/dL (12.0-16.0) 07/04/18 04:50 Hct 40.2 % (36.0-47.0) 07/04/18 04:50 MCV 96.6 fL (80.0-100.0) 07/04/18 04:50 MCH 32.4 pg (27.0-34.0) 07/04/18 04:50 MCHC 33.5 g/dL (33.0-35.0) 07/04/18 04:50 RDW 14.1 % (11.6-16.5) 07/04/18 04:50 Plt Count 309 X10^3/uL (150.0-450.0) 07/04/18 04:50 MPV 8.3 fL (7.4-11.0) 07/04/18 04:50 Neut % (Auto) 70.3 % (42.0-75.0) 07/04/18 04:50 Lymph % (Auto) 17.4 % (21.0-51.0) L 07/04/18 04:50 [place] % (Auto) 8.9 % (0.0-13.0) 07/04/18 04:50 Eos % (Auto) 2.9 % (0.9-2.9) 07/04/18 04:50 Baso % (Auto) 0.5 % (0.2-1.0) 07/04/18 04:50 Neut # (Auto) 6.6 x10^3/uL (2.2-4.8) H 07/04/18 04:50 Lymph # (Auto) 1.6 X10^3/uL (1.3-2.9) 07/04/18 04:50 [place] # (Auto) 0.8 x10^3/uL (0.3-0.8) 07/04/18 04:50 Eos # (Auto) 0.3 x10^3/uL (0.0-0.2) H 07/04/18 04:50 Baso # (Auto) 0.1 X10^3/uL (0.0-0.1) 07/04/18 04:50 Absolute Nucleated RBC 0.0 /100WBC 07/04/18 04:50 INR Target Range - 07/01/18 10:27 INR 1.10 (0.8-1.3) 07/01/18 10:27 APTT 30.5 SECONDS (22.9-36.5) 07/01/18 10:27 PTT Comment - 07/01/18 10:27 D-Dimer 2190 ng/mL (0-400) H* 07/01/18 10:27 Sodium 140 mmol/L (136-145) 07/04/18 04:50 Corrected Sodium TNP 07/04/18 04:50 Potassium 4.1 mmol/L (3.5-5.1) 07/04/18 04:50 Chloride 105 mmol/L (98-107) 07/04/18 04:50 Carbon Dioxide 26.9 mmol/L (21-32) 07/04/18 04:50 BUN 3 mg/dL (7-18) L 07/04/18 04:50 Creatinine 0.86 mg/dL (0.55-1.02) 07/04/18 04:50 Est GFR (MDRD) Af Amer > 60 (>60) 07/04/18 04:50 Est GFR (MDRD) Non-Af > 60 (>60) 07/04/18 04:50 Glucose 102 mg/dL (65-99) H 07/04/18 04:50 POC Glucose (mg/dL) 103 mg/dL (65-99) H 07/04/18 16:35 Calcium 8.9 mg/dL (8.5-10.1) 07/04/18 04:50 Corrected Calcium 9.7 mg/dL (8.5-10.1) 07/04/18 04:50 Magnesium 1.9 mg/dL (1.7-2.9) 07/01/18 10:27 Total Bilirubin 0.30 mg/dL (0.2-1.0) 07/04/18 04:50 AST 40 Units/L (15-37) H 07/04/18 04:50 ALT 22 Units/L (12-78) 07/04/18 04:50 Alkaline Phosphatase 65 Units/L (46-116) 07/04/18 04:50 Creatine Kinase 136 Units/L (26-192) 07/04/18 14:22 CK-MB (CK-2) 6.6 ng/mL (0-4.0) H* 07/04/18 14:22 CK/CKMB % Calc 4.9 % (<4) 07/04/18 14:22 Troponin I 2.61 ng/mL (0-1.5) H* 07/04/18 14:22 Total Protein 6.6 g/dL (6.4-8.2) 07/04/18 04:50 Albumin 3.0 g/dL (3.4-5.0) L 07/04/18 04:50 Globulin 3.6 g/dL (2.5-4.5) 07/04/18 04:50 Albumin/Globulin Ratio 0.8 Ratio (1.1-2.1) L 07/04/18 04:50 Triglycerides 146 mg/dL (0-150) 07/01/18 10:27 Cholesterol 113 mg/dL (0-200) 07/01/18 10:27 LDL Cholesterol, Calc 50 mg/dL (0-100) 07/01/18 10:27 HDL Cholesterol 34 mg/dL (40-60) L 07/01/18 10:27 Cholesterol/HDL Ratio 3.3 (0.0-5.0) 07/01/18 10:27 Amylase 14 Units/L (25-115) L 07/01/18 10:27 Lipase 55 Units/L (73-393) L 07/01/18 10:27 Specimen Type Clean catch urine 07/01/18 21:10 Urine Color Yellow (YELLOW) 07/01/18 21:10 Urine Appearance Clear (CLEAR) 07/01/18 21:10 Urine pH 5.0 (5.0 - 8.0) 07/01/18 21:10 Ur Specific [place] 1.005 (1.000-1.030) 07/01/18 21:10 Urine Protein Negative (NEGATIVE) 07/01/18 21:10 Urine Glucose (UA) Negative (NEGATIVE) 07/01/18 21:10 Urine Ketones Negative (NEGATIVE) 07/01/18 21:10 Urine Occult Blood 1+ (NEGATIVE) 07/01/18 21:10 Urine Nitrite Negative (NEGATIVE) 07/01/18 21:10 Urine Bilirubin Negative (NEGATIVE) 07/01/18 21:10 Urine Urobilinogen Normal (NORMAL) 07/01/18 21:10 Ur Leukocyte Esterase 2+ (NEGATIVE) 07/01/18 21:10 Urine RBC 0-2 /HPF (NONE SEEN) 07/01/18 21:10 Urine WBC 0-2 /HPF (NONE SEEN) 07/01/18 21:10 Ur Squamous Epith Cells Few /HPF (NEGATIVE) 07/01/18 21:10 Amorphous Sediment Trace /HPF (NEGATIVE) 07/01/18 21:10 Urine Bacteria Trace /HPF (NEGATIVE) 07/01/18 21:10 Ur Culture Indicated? Yes/culture set up 07/01/18 21:10 - Plan (1) CVA (cerebral vascular accident) Status: Acute Qualifiers: CVA mechanism: unspecified Qualified Code(s): I63.9 - Cerebral infarction, unspecified Plan: CONTINUE PLAVIX, CONTINUE STATINS, BLOOD PRESSURE CONTROL, CONTINUE TO MONITOR (2) Acute maxillary sinusitis Status: Acute Qualifiers: Recurrence: not specified as recurrent Qualified Code(s): J01.00 - Acute maxillary sinusitis, unspecified Plan: FORTAZ 1GM IV Q8H, CONTINUE TO MONITOR (3) Altered mental status Status: Acute Qualifiers: Altered mental status type: transient alteration of awareness Qualified Code(s): R40.4 - Transient alteration of awareness Plan: ADMIT, VERIFY AND RESUME HOME MEDICATION, GENTLE IV HYDRATION. PAIN AND NAUSEA CONTROL, UC, BC ON ADMISSION. POST OPERATIVE WOUND CARE, I & OS. ASPIRIN STATIN BP CONTROL. REPEAT AM LABS (4) Hyperglycemia Status: Acute Plan: CONTINUE HOME MEDS, CONTINUE TO MONITOR (5) Hypertension Status: Acute Qualifiers: Hypertension type: essential hypertension Qualified Code(s): I10 - Essential (primary) hypertension Plan: CONTINUE HOME MEDS, CONTINUE TO MONITOR (6) Hypothyroidism Status: Acute Qualifiers: Hypothyroidism type: acquired Qualified Code(s): E03.9 - Hypothyroidism, unspecified Plan: CONTINUE HOME MEDS, CONTINUE TO MONITOR.
[2018-07-04] MEDS: OXYBUTYNIN CHLORIDE ER PO SCH (20:50)
[2018-07-04] MEDS: CRESTOR TAB 10 MG PO SCH (20:51)
[2018-07-04 21:21] LABS: CKMB % 5.4 % (<4)
[2018-07-04 22:07] LABS: CREATINE KINASE MB 5.4 ng/mL (0-4.0); TROPONIN I 1.89 ng/mL (0-1.5)
[2018-07-05 05:44] LABS: CKMB % 4.6 % (<4); CREATINE KINASE MB 3.8 ng/mL (0-4.0); TROPONIN I 1.47 ng/mL (0-1.5)
[2018-07-05 06:12] LABS: BASOPHILS # (AUTO) 0.1 X10^3/uL (0.0-0.1); BASOPHILS % (AUTO) 0.4 % (0.2-1.0); EOSINOPHILS # (AUTO) 0.4 x10^3/uL (0.0-0.2); EOSINOPHILS % (AUTO) 3.5 % (0.9-2.9); HEMATOCRIT 37.8 % (36.0-47.0); HEMOGLOBIN 12.8 g/dL (12.0-16.0); LYMPHOCYTES # (AUTO) 1.4 X10^3/uL (1.3-2.9); LYMPHOCYTES % (AUTO) 10.9 % (21.0-51.0); MEAN CORPUSCULAR HEMOGLOBIN 32.5 pg (27.0-34.0); MEAN CORPUSCULAR HGB CONC 33.8 g/dL (33.0-35.0); MEAN CORPUSCULAR VOLUME 96.1 fL (80.0-100.0); MEAN PLATELET VOLUME 8.5 fL (7.4-11.0); MONOCYTES # (AUTO) 0.8 x10^3/uL (0.3-0.8); MONOCYTES % (AUTO) 6.4 % (0.0-13.0); NEUTROPHILS # (AUTO) 9.8 x10^3/uL (2.2-4.8); NEUTROPHILS % (AUTO) 78.8 % (42.0-75.0); PLATELET COUNT 288 X10^3/uL (150.0-450.0); RED BLOOD COUNT 3.93 X10^6/uL (3.5-5.4); RED CELL DISTRIBUTION WIDTH 14.3 % (11.6-16.5); WHITE BLOOD COUNT 12.5 X10^3/uL (3.6-10.0)
[2018-07-05] MEDS: FORTAZ or TAZICEF VIAL INJ IVP SCH ×3 (06:15→21:17)
[2018-07-05] MEDS: TESSALON PERLES PO SCH ×3 (06:16→21:17)
[2018-07-05 06:30] LABS: ALANINE AMINOTRANSFERASE 22 Units/L (12-78); ALBUMIN 2.7 g/dL (3.4-5.0); ALKALINE PHOSPHATASE 62 Units/L (46-116); ASPARTATE AMINO TRANSFERASE 28 Units/L (15-37); BLOOD UREA NITROGEN 4 mg/dL (7-18); CALCIUM 8.6 mg/dL (8.5-10.1); CARBON DIOXIDE 26.6 mmol/L (21-32); CHLORIDE 105 mmol/L (98-107); COR CA(FOR HYPOALB) 9.6 mg/dL (8.5-10.1); CREATININE 0.77 mg/dL (0.55-1.02); SODIUM 140 mmol/L (136-145); TOTAL PROTEIN 6.2 g/dL (6.4-8.2); eGFR NON BLACK RACES > 60 (>60)
[2018-07-05] MEDS: HALDOL INJ IVP PRN ×2 (08:38→14:58)
[2018-07-05] MEDS: ZyPREXA TAB 5 MG PO SCH ×2 (08:43→17:59)
[2018-07-05] MEDS: PROTONIX TAB 40 MG PO SCH (08:43)
[2018-07-05] MEDS: BENTYL CAP 10 MG PO SCH ×2 (08:43→20:29)
[2018-07-05] MEDS: NAMENDA TAB 10 MG PO SCH ×2 (08:43→20:26)
[2018-07-05] MEDS: FOLIC ACID TAB 1 MG PO SCH (08:43)
[2018-07-05] MEDS: K-DUR TAB 20 MEQ PO SCH ×2 (08:44→20:27)
[2018-07-05] MEDS: ECOTRIN TAB 325 MG PO SCH (08:44)
[2018-07-05] MEDS: PROzac PO SCH (08:44)
[2018-07-05] MEDS: KLONOPIN TAB 0.5 MG PO SCH (08:44)
[2018-07-05] MEDS: BUSPAR PO SCH ×2 (08:44→20:28)
[2018-07-05] MEDS: DUONEB 0.5 MG/3 MG NEB SCH ×4 (09:01→20:42)
--- NOTE | 2018-07-05 09:08 | PCM.PROG ---
Progress Note - Progress Note for Day of Date of Exam: 07/05/18 - Subjective Subjective: WAS ADMITTED ON 07/01. SHE IS BEING TREATED FOR CVA, ACUTE MAXILLARY SINUSITIS, AND ALLTERED MENTAL STATUS. TODAY, SHE IS ALERT IN BED ON MORNING ROUNDS. SHE IS NOTED WITH AGITATION AND IS MOANING OUT. SHE DENIES PAIN. SHE CONTINUES WITH COMPLAINTS OF WEAKNESS, COUGH, AND NASAL CONGESTION. SHE DID HAVE A PERIOD OF INCREASED DROWSINESS YESTERDAY AND WAS NOT AROUSABLE TO VERBAL OR TACTILE STIMULI. CARDIAC ENZYMES WERE OBTAINED AND CK-MB WAS NOTED TO BE ELEVATED AT 6.6, TROPONIN NOTED TO BE 2.61. WE FOLLOWED UP WITH CARDIAC ENZYMES AFTER SIX HOURS AND CK-MB DECREASED TO 5.4, TROPONIN DECREASED TO 1.89. AFTER 12 HOURS FROM INITIAL CARDAIC ENZYMES, ALL LEVELS WERE NOTED TO BE NORMAL. VITALS THIS MORNING ARE 97.9-57-20-100%-118/73. LABS WERE OBTAINED. ABNORMAL LAB VALUES INCLUDE THE FOLLOWING: WBC 12.5, BUN 4, TOTAL PROTEIN 6.2, ALBUMIN 2.7. TODAY, WE WILL CONTINUE WITH IV HYDRATION, IV ANTIBIOTICS, RESPIRATORY TREATMENTS, AND CURRENT PLAN OF CARE. WE WILL DISCONTINUE THE KLONOPIN AND START VALIUM 5MG PO TID SCHEDULED. OTHERWISE, WE WILL FOLLOW UP WITH AM LABS AND CONTINUE TO MONITOR. - Past Medical Family Social History Past Med/Fam/Surg Hx: No changes since H&P Allergies: Allergies beeswax Allergy (Verified 12/16/17 05:05) morphine Allergy (Verified 12/16/17 05:05) nifedipine Allergy (Verified 12/16/17 05:05) - Review of Systems ROS: No change since H&P - Vital Signs and I&O's Vital Signs: Temperature 97.9 F Pulse Rate [Left Radial] 57 Pulse Rate [Apical] 86 Pulse Rate 60 Respiratory Rate 20 Blood Pressure [Left Arm] 143/81 Blood Pressure [Right Arm] 118/73 Blood Pressure 117/87 O2 Sat by Pulse Oximetry 100 Intake and Output: Intake & Output 07/02/18 07/03/18 07/04/18 07/05/18 11:59 11:59 11:59 11:59 Intake Total 440 / 440 320 / 320 1210 / 1210 2029 Output Total 0 / 0 Balance 440 / 440 320 / 320 1210 / 1210 2029 - Physical Exam Oriented: Person Eyes: Normal Ear: Normal Nose: Normal Throat: Dry Respiratory: Generalized, Diminished Cardiovascular: Normal : Normal Auscultation: Bowel Sounds: Normal Palpation: Normal Tenderness: Normal Skin: Wound Musculoskeletal: Right, Left, Leg, Instability Psychiatric: Anxiety, Agitation Mood Description: Calm, Anxious Affect: Anxious Speech Pattern: Clear, Inappropriate - Laboratory and Diagnostics Result Diagrams: 07/05/18 04:57 07/05/18 04:57 Labs: 07/02/18 12:06 Blood Blood Culture - Preliminary 07/02/18 11:31 Blood Blood Culture - Preliminary 07/01/18 21:10 Urine,Clean Catch Urine Culture - Final Laboratory WBC 12.5 X10^3/uL (3.6-10.0) H 07/05/18 04:57 RBC 3.93 X10^6/uL (3.5-5.4) 07/05/18 04:57 Hgb 12.8 g/dL (12.0-16.0) 07/05/18 04:57 Hct 37.8 % (36.0-47.0) 07/05/18 04:57 MCV 96.1 fL (80.0-100.0) 07/05/18 04:57 MCH 32.5 pg (27.0-34.0) 07/05/18 04:57 MCHC 33.8 g/dL (33.0-35.0) 07/05/18 04:57 RDW 14.3 % (11.6-16.5) 07/05/18 04:57 Plt Count 288 X10^3/uL (150.0-450.0) 07/05/18 04:57 MPV 8.5 fL (7.4-11.0) 07/05/18 04:57 Neut % (Auto) 78.8 % (42.0-75.0) H 07/05/18 04:57 Lymph % (Auto) 10.9 % (21.0-51.0) L 07/05/18 04:57 [place] % (Auto) 6.4 % (0.0-13.0) 07/05/18 04:57 Eos % (Auto) 3.5 % (0.9-2.9) H 07/05/18 04:57 Baso % (Auto) 0.4 % (0.2-1.0) 07/05/18 04:57 Neut # (Auto) 9.8 x10^3/uL (2.2-4.8) H 07/05/18 04:57 Lymph # (Auto) 1.4 X10^3/uL (1.3-2.9) 07/05/18 04:57 [place] # (Auto) 0.8 x10^3/uL (0.3-0.8) 07/05/18 04:57 Eos # (Auto) 0.4 x10^3/uL (0.0-0.2) H 07/05/18 04:57 Baso # (Auto) 0.1 X10^3/uL (0.0-0.1) 07/05/18 04:57 Absolute Nucleated RBC 0.0 /100WBC 07/05/18 04:57 INR Target Range - 07/01/18 10:27 INR 1.10 (0.8-1.3) 07/01/18 10:27 APTT 30.5 SECONDS (22.9-36.5) 07/01/18 10:27 PTT Comment - 07/01/18 10:27 D-Dimer 2190 ng/mL (0-400) H* 07/01/18 10:27 Sodium 140 mmol/L (136-145) 07/05/18 04:57 Corrected Sodium TNP 07/05/18 04:57 Potassium 4.2 mmol/L (3.5-5.1) 07/05/18 04:57 Chloride 105 mmol/L (98-107) 07/05/18 04:57 Carbon Dioxide 26.6 mmol/L (21-32) 07/05/18 04:57 BUN 4 mg/dL (7-18) L 07/05/18 04:57 Creatinine 0.77 mg/dL (0.55-1.02) 07/05/18 04:57 Est GFR (MDRD) Af Amer > 60 (>60) 07/05/18 04:57 Est GFR (MDRD) Non-Af > 60 (>60) 07/05/18 04:57 Glucose 82 mg/dL (65-99) 07/05/18 04:57 POC Glucose (mg/dL) 89 mg/dL (65-99) 07/05/18 05:42 Calcium 8.6 mg/dL (8.5-10.1) 07/05/18 04:57 Corrected Calcium 9.6 mg/dL (8.5-10.1) 07/05/18 04:57 Magnesium 1.9 mg/dL (1.7-2.9) 07/01/18 10:27 Total Bilirubin 0.30 mg/dL (0.2-1.0) 07/05/18 04:57 AST 28 Units/L (15-37) 07/05/18 04:57 ALT 22 Units/L (12-78) 07/05/18 04:57 Alkaline Phosphatase 62 Units/L (46-116) 07/05/18 04:57 Creatine Kinase 83 Units/L (26-192) 07/05/18 02:11 CK-MB (CK-2) 3.8 ng/mL (0-4.0) 07/05/18 02:11 CK/CKMB % Calc 4.6 % (<4) 07/05/18 02:11 Troponin I 1.47 ng/mL (0-1.5) 07/05/18 02:11 Total Protein 6.2 g/dL (6.4-8.2) L 07/05/18 04:57 Albumin 2.7 g/dL (3.4-5.0) L 07/05/18 04:57 Globulin 3.5 g/dL (2.5-4.5) 07/05/18 04:57 Albumin/Globulin Ratio 0.8 Ratio (1.1-2.1) L 07/05/18 04:57 Triglycerides 146 mg/dL (0-150) 07/01/18 10:27 Cholesterol 113 mg/dL (0-200) 07/01/18 10:27 LDL Cholesterol, Calc 50 mg/dL (0-100) 07/01/18 10:27 HDL Cholesterol 34 mg/dL (40-60) L 07/01/18 10:27 Cholesterol/HDL Ratio 3.3 (0.0-5.0) 07/01/18 10:27 Amylase 14 Units/L (25-115) L 07/01/18 10:27 Lipase 55 Units/L (73-393) L 07/01/18 10:27 Specimen Type Clean catch urine 07/01/18 21:10 Urine Color Yellow (YELLOW) 07/01/18 21:10 Urine Appearance Clear (CLEAR) 07/01/18 21:10 Urine pH 5.0 (5.0 - 8.0) 07/01/18 21:10 Ur Specific [place] 1.005 (1.000-1.030) 07/01/18 21:10 Urine Protein Negative (NEGATIVE) 07/01/18 21:10 Urine Glucose (UA) Negative (NEGATIVE) 07/01/18 21:10 Urine Ketones Negative (NEGATIVE) 07/01/18 21:10 Urine Occult Blood 1+ (NEGATIVE) 07/01/18 21:10 Urine Nitrite Negative (NEGATIVE) 07/01/18 21:10 Urine Bilirubin Negative (NEGATIVE) 07/01/18 21:10 Urine Urobilinogen Normal (NORMAL) 07/01/18 21:10 Ur Leukocyte Esterase 2+ (NEGATIVE) 07/01/18 21:10 Urine RBC 0-2 /HPF (NONE SEEN) 07/01/18 21:10 Urine WBC 0-2 /HPF (NONE SEEN) 07/01/18 21:10 Ur Squamous Epith Cells Few /HPF (NEGATIVE) 07/01/18 21:10 Amorphous Sediment Trace /HPF (NEGATIVE) 07/01/18 21:10 Urine Bacteria Trace /HPF (NEGATIVE) 07/01/18 21:10 Ur Culture Indicated? Yes/culture set up 07/01/18 21:10 - Plan (1) CVA (cerebral vascular accident) Status: Acute Qualifiers: CVA mechanism: unspecified Qualified Code(s): I63.9 - Cerebral infarction, unspecified Plan: CONTINUE PLAVIX, CONTINUE STATINS, BLOOD PRESSURE CONTROL, CONTINUE TO MONITOR (2) Acute maxillary sinusitis Status: Acute Qualifiers: Recurrence: not specified as recurrent Qualified Code(s): J01.00 - Acute maxillary sinusitis, unspecified Plan: FORTAZ 1GM IV Q8H, CONTINUE TO MONITOR (3) Altered mental status Status: Acute Qualifiers: Altered mental status type: transient alteration of awareness Qualified Code(s): R40.4 - Transient alteration of awareness Plan: VALIUM 5MG PO TID NADINE, ZYPREXA 5MG PO BID, CONTINUE TO MONITOR (4) Hyperglycemia Status: Acute Plan: CONTINUE HOME MEDS, CONTINUE TO MONITOR (5) Hypertension Status: Acute Qualifiers: Hypertension type: essential hypertension Qualified Code(s): I10 - Essential (primary) hypertension Plan: CONTINUE HOME MEDS, CONTINUE TO MONITOR (6) Hypothyroidism Status: Acute Qualifiers: Hypothyroidism type: acquired Qualified Code(s): E03.9 - Hypothyroidism, unspecified Plan: CONTINUE HOME MEDS, CONTINUE TO MONITOR.
[2018-07-05] MEDS: PLAVIX PO SCH (09:23)
[2018-07-05] MEDS: BENADRYL INJ 50 MG VIAL IV PRN ×3 (09:54→22:12)
[2018-07-05] MEDS: VALIUM PO SCH ×2 (13:27→21:17)
[2018-07-05] MEDS: NS 1/2 + KCL 20 MEQ/L 1,000 ML IV SCH ×2 (14:58→14:59)
[2018-07-05] MEDS: SYNTHROID 75 mcg TAB PO SCH (17:30)
[2018-07-05] MEDS: NORCO 5/325 MG TAB PO PRN (18:05)
[2018-07-05] MEDS: CRESTOR TAB 10 MG PO SCH (20:27)
[2018-07-05] MEDS: OXYBUTYNIN CHLORIDE ER PO SCH (20:28)
[2018-07-06] MEDS: VALIUM PO SCH ×3 (05:38→21:08)
[2018-07-06] MEDS: FORTAZ or TAZICEF VIAL INJ IVP SCH ×3 (05:38→21:10)
[2018-07-06] MEDS: TESSALON PERLES PO SCH ×3 (05:38→21:09)
[2018-07-06 06:06] LABS: BASOPHILS % (AUTO) 0.4 % (0.2-1.0); EOSINOPHILS # (AUTO) 0.4 x10^3/uL (0.0-0.2); HEMATOCRIT 37.3 % (36.0-47.0); HEMOGLOBIN 12.5 g/dL (12.0-16.0); LYMPHOCYTES # (AUTO) 1.5 X10^3/uL (1.3-2.9); LYMPHOCYTES % (AUTO) 12.5 % (21.0-51.0); MEAN CORPUSCULAR HEMOGLOBIN 31.9 pg (27.0-34.0); MEAN CORPUSCULAR HGB CONC 33.6 g/dL (33.0-35.0); MEAN CORPUSCULAR VOLUME 95.2 fL (80.0-100.0); MEAN PLATELET VOLUME 8.8 fL (7.4-11.0); MONOCYTES # (AUTO) 0.9 x10^3/uL (0.3-0.8); MONOCYTES % (AUTO) 7.4 % (0.0-13.0); NEUTROPHILS # (AUTO) 9.2 x10^3/uL (2.2-4.8); NEUTROPHILS % (AUTO) 76.7 % (42.0-75.0); PLATELET COUNT 303 X10^3/uL (150.0-450.0); RED BLOOD COUNT 3.92 X10^6/uL (3.5-5.4)
[2018-07-06 06:18] LABS: ALANINE AMINOTRANSFERASE 19 Units/L (12-78); ALBUMIN 2.9 g/dL (3.4-5.0); ALKALINE PHOSPHATASE 72 Units/L (46-116); ASPARTATE AMINO TRANSFERASE 23 Units/L (15-37); BLOOD UREA NITROGEN 4 mg/dL (7-18); CALCIUM 8.9 mg/dL (8.5-10.1); CARBON DIOXIDE 26.4 mmol/L (21-32); CHLORIDE 103 mmol/L (98-107); COR CA(FOR HYPOALB) 9.8 mg/dL (8.5-10.1); CREATININE 0.74 mg/dL (0.55-1.02); SODIUM 139 mmol/L (136-145); TOTAL PROTEIN 6.4 g/dL (6.4-8.2); eGFR NON BLACK RACES > 60 (>60)
[2018-07-06] MEDS: NS 1/2 + KCL 20 MEQ/L 1,000 ML IV SCH (06:20)
[2018-07-06] MEDS: PLAVIX PO SCH (09:03)
[2018-07-06] MEDS: BUSPAR PO SCH ×2 (09:04→21:09)
[2018-07-06] MEDS: K-DUR TAB 20 MEQ PO SCH ×2 (09:04→21:08)
[2018-07-06] MEDS: ECOTRIN TAB 325 MG PO SCH (09:04)
[2018-07-06] MEDS: BENTYL CAP 10 MG PO SCH ×2 (09:04→21:08)
[2018-07-06] MEDS: NAMENDA TAB 10 MG PO SCH ×2 (09:04→21:09)
[2018-07-06] MEDS: PROzac PO SCH (09:04)
[2018-07-06] MEDS: ZyPREXA TAB 5 MG PO SCH ×2 (09:05→17:01)
[2018-07-06] MEDS: PROTONIX TAB 40 MG PO SCH (09:05)
[2018-07-06] MEDS: FOLIC ACID TAB 1 MG PO SCH (09:16)
[2018-07-06] MEDS: HALDOL INJ IVP PRN (09:17)
[2018-07-06] MEDS: MEGACE PO SCH ×2 (09:24→21:09)
[2018-07-06] MEDS: DUONEB 0.5 MG/3 MG NEB SCH ×4 (09:56→20:19)
--- NOTE | 2018-07-06 10:19 | PCM.PROG ---
Progress Note - Progress Note for Day of Date of Exam: 07/06/18 - Subjective Subjective: WAS ADMITTED ON 07/01. SHE IS BEING TREATED FOR CVA, ACUTE MAXILLARY SINUSITIS, AND ALLTERED MENTAL STATUS. TODAY, SHE IS ALERT, SITTING IN CHAIR ON MORNING ROUNDS. SHE CONTINUES WITH DISORIENTATION AND WEAKNESS. FAMILY REPORTS THAT SHE HAS HAD A DECREASED APPETITE, BUT IS DRINKING WELL. HER VITALS THIS MORNING ARE 98.7-101-20-94%-131/88. LABS WERE OBTAINED. ABNORMAL LAB VALUES INCLUDE THE FOLLOWING: WBC 12.0, BUN 4, ALBUMIN 2.9. TODAY, WE WILL CONTINUE WITH IV ANTIBIOTICS, RESPIRATORY TREATMENTS, AND CURRENT PLAN OF CARE. WE WILL INCREASE HER VALIUM TO 10MG PO TID AND START [place]GACE 40MG PO BID. OTHERWISE, WE WILL FOLLOW UP WITH AM LABS AND CONTINUE TO MONITOR. - Past Medical Family Social History Past Med/Fam/Surg Hx: No changes since H&P Allergies: Allergies beeswax Allergy (Verified 12/16/17 05:05) morphine Allergy (Verified 12/16/17 05:05) nifedipine Allergy (Verified 12/16/17 05:05) - Review of Systems ROS: No change since H&P - Vital Signs and I&O's Vital Signs: Temperature 98.7 F Pulse Rate [Left Radial] 101 Pulse Rate [Apical] 86 Pulse Rate 101 Respiratory Rate 20 Blood Pressure [Left Arm] 131/88 Blood Pressure [Right Arm] 141/69 Blood Pressure 117/87 O2 Sat by Pulse Oximetry 98 Intake and Output: Intake & Output 07/03/18 07/04/18 07/05/18 07/06/18 11:59 11:59 11:59 11:59 Intake Total 320 / 320 1210 / 1210 2029 1390 / 1390 Balance 320 / 320 1210 / 1210 2029 1390 / 1390 - Physical Exam Oriented: Person Eyes: Normal Ear: Normal Nose: Normal Throat: Dry Respiratory: Generalized, Diminished Cardiovascular: Normal : Normal Auscultation: Bowel Sounds: Normal Palpation: Normal Tenderness: Normal Skin: Wound Musculoskeletal: Right, Left, Leg, Instability Psychiatric: Anxiety, Agitation Mood Description: Anxious Affect: Anxious Speech Pattern: Clear - Laboratory and Diagnostics Result Diagrams: 07/06/18 05:45 07/06/18 05:45 Labs: 07/02/18 12:06 Blood Blood Culture - Preliminary 07/02/18 11:31 Blood Blood Culture - Preliminary 07/01/18 21:10 Urine,Clean Catch Urine Culture - Final Laboratory WBC 12.0 X10^3/uL (3.6-10.0) H 07/06/18 05:45 RBC 3.92 X10^6/uL (3.5-5.4) 07/06/18 05:45 Hgb 12.5 g/dL (12.0-16.0) 07/06/18 05:45 Hct 37.3 % (36.0-47.0) 07/06/18 05:45 MCV 95.2 fL (80.0-100.0) 07/06/18 05:45 MCH 31.9 pg (27.0-34.0) 07/06/18 05:45 MCHC 33.6 g/dL (33.0-35.0) 07/06/18 05:45 RDW 14.0 % (11.6-16.5) 07/06/18 05:45 Plt Count 303 X10^3/uL (150.0-450.0) 07/06/18 05:45 MPV 8.8 fL (7.4-11.0) 07/06/18 05:45 Neut % (Auto) 76.7 % (42.0-75.0) H 07/06/18 05:45 Lymph % (Auto) 12.5 % (21.0-51.0) L 07/06/18 05:45 [place] % (Auto) 7.4 % (0.0-13.0) 07/06/18 05:45 Eos % (Auto) 3.0 % (0.9-2.9) H 07/06/18 05:45 Baso % (Auto) 0.4 % (0.2-1.0) 07/06/18 05:45 Neut # (Auto) 9.2 x10^3/uL (2.2-4.8) H 07/06/18 05:45 Lymph # (Auto) 1.5 X10^3/uL (1.3-2.9) 07/06/18 05:45 [place] # (Auto) 0.9 x10^3/uL (0.3-0.8) H 07/06/18 05:45 Eos # (Auto) 0.4 x10^3/uL (0.0-0.2) H 07/06/18 05:45 Baso # (Auto) 0.0 X10^3/uL (0.0-0.1) 07/06/18 05:45 Absolute Nucleated RBC 0.0 /100WBC 07/06/18 05:45 INR Target Range - 07/01/18 10:27 INR 1.10 (0.8-1.3) 07/01/18 10:27 APTT 30.5 SECONDS (22.9-36.5) 07/01/18 10:27 PTT Comment - 07/01/18 10:27 D-Dimer 2190 ng/mL (0-400) H* 07/01/18 10:27 Sodium 139 mmol/L (136-145) 07/06/18 05:45 Corrected Sodium TNP 07/06/18 05:45 Potassium 3.6 mmol/L (3.5-5.1) 07/06/18 05:45 Chloride 103 mmol/L (98-107) 07/06/18 05:45 Carbon Dioxide 26.4 mmol/L (21-32) 07/06/18 05:45 BUN 4 mg/dL (7-18) L 07/06/18 05:45 Creatinine 0.74 mg/dL (0.55-1.02) 07/06/18 05:45 Est GFR (MDRD) Af Amer > 60 (>60) 07/06/18 05:45 Est GFR (MDRD) Non-Af > 60 (>60) 07/06/18 05:45 Glucose 87 mg/dL (65-99) 07/06/18 05:45 POC Glucose (mg/dL) 116 mg/dL (65-99) H 07/05/18 20:25 Calcium 8.9 mg/dL (8.5-10.1) 07/06/18 05:45 Corrected Calcium 9.8 mg/dL (8.5-10.1) 07/06/18 05:45 Magnesium 1.9 mg/dL (1.7-2.9) 07/01/18 10:27 Total Bilirubin 0.40 mg/dL (0.2-1.0) 07/06/18 05:45 AST 23 Units/L (15-37) 07/06/18 05:45 ALT 19 Units/L (12-78) 07/06/18 05:45 Alkaline Phosphatase 72 Units/L (46-116) 07/06/18 05:45 Creatine Kinase 83 Units/L (26-192) 07/05/18 02:11 CK-MB (CK-2) 3.8 ng/mL (0-4.0) 07/05/18 02:11 CK/CKMB % Calc 4.6 % (<4) 07/05/18 02:11 Troponin I 1.47 ng/mL (0-1.5) 07/05/18 02:11 Total Protein 6.4 g/dL (6.4-8.2) 07/06/18 05:45 Albumin 2.9 g/dL (3.4-5.0) L 07/06/18 05:45 Globulin 3.5 g/dL (2.5-4.5) 07/06/18 05:45 Albumin/Globulin Ratio 0.8 Ratio (1.1-2.1) L 07/06/18 05:45 Triglycerides 146 mg/dL (0-150) 07/01/18 10:27 Cholesterol 113 mg/dL (0-200) 07/01/18 10:27 LDL Cholesterol, Calc 50 mg/dL (0-100) 07/01/18 10:27 HDL Cholesterol 34 mg/dL (40-60) L 07/01/18 10:27 Cholesterol/HDL Ratio 3.3 (0.0-5.0) 07/01/18 10:27 Amylase 14 Units/L (25-115) L 07/01/18 10:27 Lipase 55 Units/L (73-393) L 07/01/18 10:27 Specimen Type Clean catch urine 07/01/18 21:10 Urine Color Yellow (YELLOW) 07/01/18 21:10 Urine Appearance Clear (CLEAR) 07/01/18 21:10 Urine pH 5.0 (5.0 - 8.0) 07/01/18 21:10 Ur Specific [place] 1.005 (1.000-1.030) 07/01/18 21:10 Urine Protein Negative (NEGATIVE) 07/01/18 21:10 Urine Glucose (UA) Negative (NEGATIVE) 07/01/18 21:10 Urine Ketones Negative (NEGATIVE) 07/01/18 21:10 Urine Occult Blood 1+ (NEGATIVE) 07/01/18 21:10 Urine Nitrite Negative (NEGATIVE) 07/01/18 21:10 Urine Bilirubin Negative (NEGATIVE) 07/01/18 21:10 Urine Urobilinogen Normal (NORMAL) 07/01/18 21:10 Ur Leukocyte Esterase 2+ (NEGATIVE) 07/01/18 21:10 Urine RBC 0-2 /HPF (NONE SEEN) 07/01/18 21:10 Urine WBC 0-2 /HPF (NONE SEEN) 07/01/18 21:10 Ur Squamous Epith Cells Few /HPF (NEGATIVE) 07/01/18 21:10 Amorphous Sediment Trace /HPF (NEGATIVE) 07/01/18 21:10 Urine Bacteria Trace /HPF (NEGATIVE) 07/01/18 21:10 Ur Culture Indicated? Yes/culture set up 07/01/18 21:10 - Plan (1) CVA (cerebral vascular accident) Status: Acute Qualifiers: CVA mechanism: unspecified Qualified Code(s): I63.9 - Cerebral infarction, unspecified Plan: CONTINUE PLAVIX, CONTINUE STATINS, BLOOD PRESSURE CONTROL, CONTINUE TO MONITOR (2) Acute maxillary sinusitis Status: Acute Qualifiers: Recurrence: not specified as recurrent Qualified Code(s): J01.00 - Acute maxillary sinusitis, unspecified Plan: FORTAZ 1GM IV Q8H, CONTINUE TO MONITOR (3) Altered mental status Status: Acute Qualifiers: Altered mental status type: transient alteration of awareness Qualified Code(s): R40.4 - Transient alteration of awareness Plan: VALIUM 10MG PO TID NADINE, ZYPREXA 5MG PO BID, CONTINUE TO MONITOR (4) Hyperglycemia Status: Acute Plan: CONTINUE HOME MEDS, CONTINUE TO MONITOR (5) Hypertension Status: Acute Qualifiers: Hypertension type: essential hypertension Qualified Code(s): I10 - Essential (primary) hypertension Plan: CONTINUE HOME MEDS, CONTINUE TO MONITOR (6) Hypothyroidism Status: Acute Qualifiers: Hypothyroidism type: acquired Qualified Code(s): E03.9 - Hypothyroidism, unspecified Plan: CONTINUE HOME MEDS, CONTINUE TO MONITOR.
[2018-07-06] MEDS: SYNTHROID 75 mcg TAB PO SCH (16:38)
[2018-07-06] MEDS: CRESTOR TAB 10 MG PO SCH (21:08)
[2018-07-06] MEDS: OXYBUTYNIN CHLORIDE ER PO SCH (21:09)
[2018-07-07 05:23] LABS: BASOPHILS % (AUTO) 0.3 % (0.2-1.0); EOSINOPHILS # (AUTO) 0.4 x10^3/uL (0.0-0.2); EOSINOPHILS % (AUTO) 4.2 % (0.9-2.9); HEMOGLOBIN 12.6 g/dL (12.0-16.0); LYMPHOCYTES # (AUTO) 1.7 X10^3/uL (1.3-2.9); LYMPHOCYTES % (AUTO) 20.2 % (21.0-51.0); MEAN CORPUSCULAR HEMOGLOBIN 32.6 pg (27.0-34.0); MEAN CORPUSCULAR VOLUME 95.9 fL (80.0-100.0); MEAN PLATELET VOLUME 8.7 fL (7.4-11.0); MONOCYTES # (AUTO) 0.8 x10^3/uL (0.3-0.8); MONOCYTES % (AUTO) 9.6 % (0.0-13.0); NEUTROPHILS # (AUTO) 5.5 x10^3/uL (2.2-4.8); NEUTROPHILS % (AUTO) 65.7 % (42.0-75.0); PLATELET COUNT 342 X10^3/uL (150.0-450.0); RED BLOOD COUNT 3.86 X10^6/uL (3.5-5.4); RED CELL DISTRIBUTION WIDTH 14.2 % (11.6-16.5); WHITE BLOOD COUNT 8.4 X10^3/uL (3.6-10.0)
[2018-07-07 05:29] LABS: ALANINE AMINOTRANSFERASE 19 Units/L (12-78); ALBUMIN 2.7 g/dL (3.4-5.0); ALKALINE PHOSPHATASE 67 Units/L (46-116); ASPARTATE AMINO TRANSFERASE 20 Units/L (15-37); BLOOD UREA NITROGEN 4 mg/dL (7-18); CARBON DIOXIDE 28.5 mmol/L (21-32); CHLORIDE 106 mmol/L (98-107); CREATININE 0.74 mg/dL (0.55-1.02); SODIUM 142 mmol/L (136-145); TOTAL PROTEIN 6.3 g/dL (6.4-8.2); eGFR NON BLACK RACES > 60 (>60)
[2018-07-07] MEDS: VALIUM PO SCH ×3 (05:35→21:01)
[2018-07-07] MEDS: FORTAZ or TAZICEF VIAL INJ IVP SCH ×3 (05:35→21:01)
[2018-07-07] MEDS: TESSALON PERLES PO SCH ×3 (05:36→21:01)
[2018-07-07] MEDS: DUONEB 0.5 MG/3 MG NEB SCH ×4 (08:11→20:08)
[2018-07-07] MEDS: MEGACE PO SCH ×2 (09:29→20:01)
[2018-07-07] MEDS: BUSPAR PO SCH ×2 (09:29→20:01)
[2018-07-07] MEDS: PLAVIX PO SCH (09:29)
[2018-07-07] MEDS: FOLIC ACID TAB 1 MG PO SCH (09:29)
[2018-07-07] MEDS: PROTONIX TAB 40 MG PO SCH (09:29)
[2018-07-07] MEDS: ZyPREXA TAB 5 MG PO SCH ×2 (09:30→17:40)
[2018-07-07] MEDS: NAMENDA TAB 10 MG PO SCH ×2 (09:30→20:02)
[2018-07-07] MEDS: BENTYL CAP 10 MG PO SCH ×2 (09:30→20:01)
[2018-07-07] MEDS: ECOTRIN TAB 325 MG PO SCH (09:30)
[2018-07-07] MEDS: PROzac PO SCH (09:30)
[2018-07-07] MEDS: K-DUR TAB 20 MEQ PO SCH ×2 (09:30→20:01)
[2018-07-07] MEDS: TUSSIONEX PENNKINETIC SUSP PO PRN (10:34)
[2018-07-07] MEDS: NORCO 5/325 MG TAB PO PRN (11:02)
[2018-07-07] MEDS: HALDOL INJ IVP PRN (11:59)
[2018-07-07] MEDS: SYNTHROID 75 mcg TAB PO SCH (17:40)
[2018-07-07] MEDS: CRESTOR TAB 10 MG PO SCH (20:01)
[2018-07-07] MEDS: OXYBUTYNIN CHLORIDE ER PO SCH (20:02)
[2018-07-07] MEDS: BENADRYL INJ 50 MG VIAL IV PRN (20:28)
[2018-07-08] MEDS: TESSALON PERLES PO SCH ×3 (05:30→21:06)
[2018-07-08] MEDS: FORTAZ or TAZICEF VIAL INJ IVP SCH ×3 (05:30→21:06)
[2018-07-08] MEDS: VALIUM PO SCH ×3 (05:31→21:07)
[2018-07-08] MEDS: NORCO 5/325 MG TAB PO PRN (06:23)
[2018-07-08] MEDS: DUONEB 0.5 MG/3 MG NEB SCH ×4 (08:40→20:33)
[2018-07-08] MEDS: TUSSIONEX PENNKINETIC SUSP PO PRN (09:21)
[2018-07-08] MEDS: FOLIC ACID TAB 1 MG PO SCH (09:22)
[2018-07-08] MEDS: ECOTRIN TAB 325 MG PO SCH (09:22)
[2018-07-08] MEDS: PLAVIX PO SCH (09:22)
[2018-07-08] MEDS: PROzac PO SCH (09:22)
[2018-07-08] MEDS: BUSPAR PO SCH ×2 (09:22→20:04)
[2018-07-08] MEDS: ZyPREXA TAB 5 MG PO SCH ×2 (09:22→17:31)
[2018-07-08] MEDS: BENTYL CAP 10 MG PO SCH ×2 (09:23→20:06)
[2018-07-08] MEDS: MEGACE PO SCH ×2 (09:23→20:27)
[2018-07-08] MEDS: NAMENDA TAB 10 MG PO SCH ×2 (09:23→20:06)
[2018-07-08] MEDS: K-DUR TAB 20 MEQ PO SCH ×2 (09:24→20:27)
[2018-07-08] MEDS: PROTONIX TAB 40 MG PO SCH (09:31)
[2018-07-08] MEDS: SYNTHROID 75 mcg TAB PO SCH (17:31)
[2018-07-08] MEDS: CRESTOR TAB 10 MG PO SCH (20:02)
[2018-07-08] MEDS: BENADRYL INJ 50 MG VIAL IV PRN (20:09)
[2018-07-08] MEDS: OXYBUTYNIN CHLORIDE ER PO SCH (20:28)
[2018-07-09] MEDS: BENADRYL INJ 50 MG VIAL IV PRN (04:04)
[2018-07-09] MEDS: FORTAZ or TAZICEF VIAL INJ IVP SCH ×3 (05:01→21:32)
[2018-07-09] MEDS: VALIUM PO SCH ×3 (05:01→21:32)
[2018-07-09] MEDS: TESSALON PERLES PO SCH ×3 (05:01→21:32)
[2018-07-09 05:20] LABS: BASOPHILS % (AUTO) 0.6 % (0.2-1.0); EOSINOPHILS # (AUTO) 0.4 x10^3/uL (0.0-0.2); EOSINOPHILS % (AUTO) 4.7 % (0.9-2.9); HEMATOCRIT 36.4 % (36.0-47.0); HEMOGLOBIN 12.2 g/dL (12.0-16.0); LYMPHOCYTES # (AUTO) 1.5 X10^3/uL (1.3-2.9); LYMPHOCYTES % (AUTO) 19.6 % (21.0-51.0); MEAN CORPUSCULAR HEMOGLOBIN 32.1 pg (27.0-34.0); MEAN CORPUSCULAR HGB CONC 33.4 g/dL (33.0-35.0); MEAN CORPUSCULAR VOLUME 96.1 fL (80.0-100.0); MEAN PLATELET VOLUME 8.5 fL (7.4-11.0); MONOCYTES # (AUTO) 0.7 x10^3/uL (0.3-0.8); MONOCYTES % (AUTO) 9.3 % (0.0-13.0); NEUTROPHILS # (AUTO) 4.9 x10^3/uL (2.2-4.8); NEUTROPHILS % (AUTO) 65.8 % (42.0-75.0); PLATELET COUNT 339 X10^3/uL (150.0-450.0); RED BLOOD COUNT 3.79 X10^6/uL (3.5-5.4); WHITE BLOOD COUNT 7.5 X10^3/uL (3.6-10.0)
[2018-07-09 05:40] LABS: ALANINE AMINOTRANSFERASE 19 Units/L (12-78); ALBUMIN 2.7 g/dL (3.4-5.0); ALKALINE PHOSPHATASE 65 Units/L (46-116); ASPARTATE AMINO TRANSFERASE 21 Units/L (15-37); BLOOD UREA NITROGEN 6 mg/dL (7-18); CALCIUM 8.9 mg/dL (8.5-10.1); CARBON DIOXIDE 28.5 mmol/L (21-32); CHLORIDE 105 mmol/L (98-107); COR CA(FOR HYPOALB) 9.9 mg/dL (8.5-10.1); CREATININE 0.92 mg/dL (0.55-1.02); SODIUM 141 mmol/L (136-145); TOTAL PROTEIN 6.3 g/dL (6.4-8.2); eGFR NON BLACK RACES > 60 (>60)
[2018-07-09] MEDS: MEGACE PO SCH ×2 (09:00→20:25)
[2018-07-09] MEDS: BUSPAR PO SCH ×2 (09:00→20:21)
[2018-07-09] MEDS: PLAVIX PO SCH (09:01)
[2018-07-09] MEDS: PROTONIX TAB 40 MG PO SCH (09:01)
[2018-07-09] MEDS: BENTYL CAP 10 MG PO SCH ×2 (09:01→20:21)
[2018-07-09] MEDS: ZyPREXA TAB 5 MG PO SCH (09:01)
[2018-07-09] MEDS: K-DUR TAB 20 MEQ PO SCH ×2 (09:01→20:24)
[2018-07-09] MEDS: PROzac PO SCH (09:01)
[2018-07-09] MEDS: NAMENDA TAB 10 MG PO SCH ×2 (09:01→20:26)
[2018-07-09] MEDS: FOLIC ACID TAB 1 MG PO SCH (09:02)
[2018-07-09] MEDS: ECOTRIN TAB 325 MG PO SCH (09:02)
[2018-07-09] MEDS: DUONEB 0.5 MG/3 MG NEB SCH ×4 (09:28→20:55)
[2018-07-09] MEDS: SYNTHROID 75 mcg TAB PO SCH (17:26)
[2018-07-09] MEDS: CRESTOR TAB 10 MG PO SCH (20:22)
[2018-07-09] MEDS: OXYBUTYNIN CHLORIDE ER PO SCH (20:27)
[2018-07-10 05:22] LABS: BASOPHILS % (AUTO) 0.7 % (0.2-1.0); EOSINOPHILS # (AUTO) 0.3 x10^3/uL (0.0-0.2); EOSINOPHILS % (AUTO) 5.1 % (0.9-2.9); HEMATOCRIT 36.5 % (36.0-47.0); HEMOGLOBIN 12.1 g/dL (12.0-16.0); LYMPHOCYTES # (AUTO) 1.8 X10^3/uL (1.3-2.9); LYMPHOCYTES % (AUTO) 27.4 % (21.0-51.0); MEAN CORPUSCULAR HEMOGLOBIN 32.2 pg (27.0-34.0); MEAN CORPUSCULAR HGB CONC 33.2 g/dL (33.0-35.0); MEAN CORPUSCULAR VOLUME 96.9 fL (80.0-100.0); MEAN PLATELET VOLUME 8.5 fL (7.4-11.0); MONOCYTES # (AUTO) 0.7 x10^3/uL (0.3-0.8); MONOCYTES % (AUTO) 9.9 % (0.0-13.0); NEUTROPHILS # (AUTO) 3.8 x10^3/uL (2.2-4.8); NEUTROPHILS % (AUTO) 56.9 % (42.0-75.0); PLATELET COUNT 372 X10^3/uL (150.0-450.0); RED BLOOD COUNT 3.76 X10^6/uL (3.5-5.4); RED CELL DISTRIBUTION WIDTH 14.3 % (11.6-16.5); WHITE BLOOD COUNT 6.6 X10^3/uL (3.6-10.0)
[2018-07-10] MEDS: FORTAZ or TAZICEF VIAL INJ IVP SCH (05:26)
[2018-07-10] MEDS: TESSALON PERLES PO SCH ×2 (05:26→13:03)
[2018-07-10] MEDS: VALIUM PO SCH ×3 (05:27→13:03)
[2018-07-10 05:40] LABS: ALANINE AMINOTRANSFERASE 20 Units/L (12-78); ALBUMIN 2.7 g/dL (3.4-5.0); ALKALINE PHOSPHATASE 60 Units/L (46-116); ASPARTATE AMINO TRANSFERASE 22 Units/L (15-37); BLOOD UREA NITROGEN 6 mg/dL (7-18); CALCIUM 8.9 mg/dL (8.5-10.1); CARBON DIOXIDE 26.8 mmol/L (21-32); CHLORIDE 107 mmol/L (98-107); COR CA(FOR HYPOALB) 9.9 mg/dL (8.5-10.1); CREATININE 0.84 mg/dL (0.55-1.02); SODIUM 144 mmol/L (136-145); TOTAL PROTEIN 6.2 g/dL (6.4-8.2); eGFR NON BLACK RACES > 60 (>60)
[2018-07-10] MEDS: ZyPREXA TAB 5 MG PO SCH (08:58)
[2018-07-10] MEDS: MEGACE PO SCH (08:58)
[2018-07-10] MEDS: FOLIC ACID TAB 1 MG PO SCH (08:58)
[2018-07-10] MEDS: BENTYL CAP 10 MG PO SCH (08:58)
[2018-07-10] MEDS: ECOTRIN TAB 325 MG PO SCH (08:59)
[2018-07-10] MEDS: K-DUR TAB 20 MEQ PO SCH (08:59)
[2018-07-10] MEDS: PROTONIX TAB 40 MG PO SCH (09:00)
[2018-07-10] MEDS: PROzac PO SCH (09:00)
[2018-07-10] MEDS: DUONEB 0.5 MG/3 MG NEB SCH ×2 (09:00→13:21)
[2018-07-10] MEDS: NAMENDA TAB 10 MG PO SCH (09:01)
[2018-07-10] MEDS: BUSPAR PO SCH (09:01)
[2018-07-10] MEDS: PLAVIX PO SCH (09:02)
[2018-07-10] MEDS ORDERED: HALDOL PO PRN (11:48)
[2018-07-10 13:46] VITALS: BP 137/95
== END 2018-07-10 15:10 | disposition home or self-care (01) | DRG 66 ==
LOC: MED/SURG 09:55 → ER 09:55 → MED/SURG 14:45
PROVIDERS: ADMIT Internal Medicine; ATTEND Internal Medicine
DX: E03.8 Other specified hypothyroidism; E11.65 Type 2 diabetes mellitus with hyperglycemia; K86.89 Other specified diseases of pancreas; Z90.49 Acquired absence of other specified parts of digestive tract; I10 Essential (primary) hypertension; M19.90 Unspecified osteoarthritis, unspecified site; R06.02 Shortness of breath; R26.89 Other abnormalities of gait and mobility; I63.89 Other cerebral infarction; R10.84 Generalized abdominal pain; R00.1 Bradycardia, unspecified; J01.00 Acute maxillary sinusitis, unspecified; Z91.81 History of falling; R40.4 Transient alteration of awareness; R13.11 Dysphagia, oral phase; R94.31 Abnormal electrocardiogram [ECG] [EKG]; R53.1 Weakness; R11.2 Nausea with vomiting, unspecified
CPT/HCPCS: 36415; 70450; 71010; 71045; 71275; 74176; 80053; 80061; 81001; 82150; 82550; 82553; 83690; 83735; 84484; 85025; 85378; 85610; 85730; 87040; 87086; 92526; 92610; 93005; 94640; 94760; 96365; 96367; 96374; 97110; 97116; 97162; 97166; 97530; 97535; 99218; 99284; A4222; J7030; S0179; G0378; J0696; J0713; J1200; J1630; J2405; J3360; J7050; J7620

== ENCOUNTER 2018-07-16 15:34 | Inpatient (IN) ==
--- NOTE | 2018-07-16 15:51 | DR.EXTPAIN ---
HPI Time seen Time Seen by Provider: 07/16/18 15:49 PCP Primary Care Physician: ky Complaint/Symptoms Chief Complaint:: stated he called ems cause his had ams and would not open her eyes she would just moan. Source History Provided: Patient Mode of arrival Mode of Arrival: EMS Timing Onset of Chief Complaint: 07/10/18 PMH PMH Past Medical History: Yes Past Medical History: Anxiety, Arthritis, COPD, CVA, Dementia, Hypertension and Hyperthyroidism Past Surgical History: Yes Surgical History: Cholecystectomy, Hysterectomy and Ortho Surgery Family History History of Family Medical Conditions: Yes Family Medical History: Cancer Social History Does patient currently use any type of tobacco product: No Have you used tobacco products in the last 12 months: No Type of Tobacco Use: None Does any household member use tobacco: No Alcohol Use: None Do you use any recreational Drugs:: No Lives With: Family Lives Where: Home infectious screening In the last 2 months have you had wt loss of >10#?: NO Have you had fever, night sweats or hemotysis?: No Have you traveled outside the country in the last 6 months?: No Isolation: Standard PE Vital Signs Vitals: Temperature 98.9 F Pulse Rate 97 Respiratory Rate 16 Blood Pressure [Left Arm] 172/88 Blood Pressure [Right Arm] 137/95 Blood Pressure 156/94 O2 Sat by Pulse Oximetry 95 ROR Labs Reviewed Result Diagrams: 07/16/18 17:30 07/16/18 17:30 Laboratory: WBC 9.0 X10^3/uL (3.6-10.0) 07/16/18 17:30 RBC 4.52 X10^6/uL (3.5-5.4) 07/16/18 17:30 Hgb 14.7 g/dL (12.0-16.0) 07/16/18 17:30 Hct 44.1 % (36.0-47.0) 07/16/18 17:30 MCV 97.4 fL (80.0-100.0) 07/16/18 17:30 MCH 32.4 pg (27.0-34.0) 07/16/18 17:30 MCHC 33.3 g/dL (33.0-35.0) 07/16/18 17:30 RDW 14.2 % (11.6-16.5) 07/16/18 17:30 Plt Count 388 X10^3/uL (150.0-450.0) 07/16/18 17:30 MPV 8.8 fL (7.4-11.0) 07/16/18 17:30 Neut % (Auto) 68.2 % (42.0-75.0) 07/16/18 17:30 Lymph % (Auto) 18.6 % (21.0-51.0) L 07/16/18 17:30 [place] % (Auto) 10.8 % (0.0-13.0) 07/16/18 17:30 Eos % (Auto) 2.0 % (0.9-2.9) 07/16/18 17:30 Baso % (Auto) 0.4 % (0.2-1.0) 07/16/18 17:30 Neut # (Auto) 6.2 x10^3/uL (2.2-4.8) H 07/16/18 17:30 Lymph # (Auto) 1.7 X10^3/uL (1.3-2.9) 07/16/18 17:30 [place] # (Auto) 1.0 x10^3/uL (0.3-0.8) H 07/16/18 17:30 Eos # (Auto) 0.2 x10^3/uL (0.0-0.2) 07/16/18 17:30 Baso # (Auto) 0.0 X10^3/uL (0.0-0.1) 07/16/18 17:30 Absolute Nucleated RBC 0.0 /100WBC 07/16/18 17:30 Sodium 146 mmol/L (136-145) H 07/16/18 17:30 Corrected Sodium TNP 07/16/18 17:30 Potassium 3.8 mmol/L (3.5-5.1) 07/16/18 17:30 Chloride 109 mmol/L (98-107) H 07/16/18 17:30 Carbon Dioxide 22.6 mmol/L (21-32) 07/16/18 17:30 BUN 17 mg/dL (7-18) 07/16/18 17:30 Creatinine 0.79 mg/dL (0.55-1.02) 07/16/18 17:30 Est GFR (MDRD) Af Amer > 60 (>60) 07/16/18 17:30 Est GFR (MDRD) Non-Af > 60 (>60) 07/16/18 17:30 Glucose 94 mg/dL (65-99) 07/16/18 17:30 Lactic Acid 1.2 mmol/L (0.4-2.0) 07/16/18 17:30 Calcium 9.7 mg/dL (8.5-10.1) 07/16/18 17:30 Corrected Calcium 10.5 mg/dL (8.5-10.1) H 07/16/18 17:30 Total Bilirubin 0.40 mg/dL (0.2-1.0) 07/16/18 17:30 AST 43 Units/L (15-37) H 07/16/18 17:30 ALT 29 Units/L (12-78) 07/16/18 17:30 Alkaline Phosphatase 72 Units/L (46-116) 07/16/18 17:30 Total Protein 7.7 g/dL (6.4-8.2) 07/16/18 17:30 Albumin 3.0 g/dL (3.4-5.0) L 07/16/18 17:30 Globulin 4.7 g/dL (2.5-4.5) H 07/16/18 17:30 Albumin/Globulin Ratio 0.6 Ratio (1.1-2.1) L 07/16/18 17:30 Amylase 15 Units/L (25-115) L 07/16/18 17:30 Lipase 59 Units/L (73-393) L 07/16/18 17:30 Specimen Type Catherized urine 07/16/18 18:32 Urine Color Yellow (YELLOW) 07/16/18 18:32 Urine Appearance Clear (CLEAR) 07/16/18 18:32 Urine pH 5.0 (5.0 - 8.0) 07/16/18 18:32 Ur Specific [place] 1.020 (1.000-1.030) 07/16/18 18:32 Urine Protein 2+ (NEGATIVE) 07/16/18 18:32 Urine Glucose (UA) Negative (NEGATIVE) 07/16/18 18:32 Urine Ketones 4+ (NEGATIVE) 07/16/18 18: Urine Occult Blood 1+ (NEGATIVE) 07/16/18 18:32 Urine Nitrite Negative (NEGATIVE) 07/16/18 18:32 Urine Bilirubin Negative (NEGATIVE) 07/16/18 18:32 Urine Urobilinogen Normal (NORMAL) 07/16/18 18:32 Ur Leukocyte Esterase 1+ (NEGATIVE) 07/16/18 18:32 Urine RBC 0-2 /HPF (NONE SEEN) 07/16/18 18:32 Urine WBC 0-2 /HPF (NONE SEEN) 07/16/18 18:32 Ur Squamous Epith Cells Rare /HPF (NEGATIVE) 07/16/18 18:32 Urine Bacteria Negative /HPF (NEGATIVE) 07/16/18 18:32 Urine Mucus Many /HPF (NEGATIVE) 07/16/18 18:32 Ur Culture Indicated? No/not indicated 07/16/18 18:32
[2018-07-16 17:51] LABS: BASOPHILS % (AUTO) 0.4 % (0.2-1.0); EOSINOPHILS # (AUTO) 0.2 x10^3/uL (0.0-0.2); HEMATOCRIT 44.1 % (36.0-47.0); HEMOGLOBIN 14.7 g/dL (12.0-16.0); LYMPHOCYTES # (AUTO) 1.7 X10^3/uL (1.3-2.9); LYMPHOCYTES % (AUTO) 18.6 % (21.0-51.0); MEAN CORPUSCULAR HEMOGLOBIN 32.4 pg (27.0-34.0); MEAN CORPUSCULAR HGB CONC 33.3 g/dL (33.0-35.0); MEAN CORPUSCULAR VOLUME 97.4 fL (80.0-100.0); MEAN PLATELET VOLUME 8.8 fL (7.4-11.0); MONOCYTES % (AUTO) 10.8 % (0.0-13.0); NEUTROPHILS # (AUTO) 6.2 x10^3/uL (2.2-4.8); NEUTROPHILS % (AUTO) 68.2 % (42.0-75.0); PLATELET COUNT 388 X10^3/uL (150.0-450.0); RED BLOOD COUNT 4.52 X10^6/uL (3.5-5.4); RED CELL DISTRIBUTION WIDTH 14.2 % (11.6-16.5)
[2018-07-16 18:00] LABS: ALANINE AMINOTRANSFERASE 29 Units/L (12-78); ALKALINE PHOSPHATASE 72 Units/L (46-116); AMYLASE 15 Units/L (25-115); ASPARTATE AMINO TRANSFERASE 43 Units/L (15-37); BLOOD UREA NITROGEN 17 mg/dL (7-18); CALCIUM 9.7 mg/dL (8.5-10.1); CARBON DIOXIDE 22.6 mmol/L (21-32); CHLORIDE 109 mmol/L (98-107); COR CA(FOR HYPOALB) 10.5 mg/dL (8.5-10.1); CREATININE 0.79 mg/dL (0.55-1.02); LIPASE 59 Units/L (73-393); SODIUM 146 mmol/L (136-145); TOTAL PROTEIN 7.7 g/dL (6.4-8.2); eGFR NON BLACK RACES > 60 (>60)
[2018-07-16 18:04] LABS: LACTIC ACID 1.2 mmol/L (0.4-2.0)
[2018-07-16 18:55] LABS: BILIRUBIN,URINE NEGATIVE (NEGATIVE); BLOOD/HEMOGLOBIN,URINE 1+ (NEGATIVE); GLUCOSE, URINE NEGATIVE (NEGATIVE); KETONES,URINE 4+ (NEGATIVE); LEUKOCYTE ESTERASE ,URINE 1+ (NEGATIVE); NITRITES,URINE NEGATIVE (NEGATIVE); PROTEIN,URINE 2+ (NEGATIVE); UROBILINOGEN,URINE NORMAL (NORMAL)
[2018-07-16 19:01] LABS: APPEARANCE,URINE CLEAR (CLEAR); BACTERIA,URINE NEGATIVE /HPF (NEGATIVE); COLOR,URINE YELLOW (YELLOW); MUCUS,URINE MANY /HPF (NEGATIVE); RBC,URINE 0-2 /HPF (NONE SEEN); SQUAMOUS EPITHELIAL CELL,UR RARE /HPF (NEGATIVE)
--- NOTE | 2018-07-16 19:39 | CT ---
HISTORY: Altered mental status Study: CT HEAD WITHOUT CONTRAST Comparison: Technique: Multiple axial images of the brain were obtained from the skull base to the vertex without administration of IV contrast. Findings: There is mild motion artifact on the exam. No intracranial hemorrhage or extra-axial hematoma is demonstrated. There is no mass effect, shift or cerebral edema. Cortical encephalomalacia of the right frontal lobe is indicative of a chronic infarction site. There are patchy periventricular and subcortical white matter hypodensities also consistent with chronic microangiopathic ischemic changes. A chronic infarction of the left cerebellum is also observed. Moderate cortical volume loss is evident. There is no acute, large artery territorial infarction. The ventricular size is concordant to the degree of overall cortical volume loss. There is an air-fluid level within the right maxillary sinus chamber. Otherwise the paranasal sinuses are predominantly clear. The mastoid air cells are clear. The calvarium is intact. IMPRESSION: No acute intracranial abnormalities. Moderate cortical atrophy with ex vacuo dilatation of the ventricular system. 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 Right maxillary sinusitis. Reported By:
--- NOTE | 2018-07-16 20:35 | CT ---
HISTORY: Abdominal pain, nonspecific Study: CT abdomen and pelvis with/without contrast Comparison: 07/01/2018 Technique: Multiple axial images of the abdomen and pelvis were obtained from the lung bases to the pubic symphysis with the administration of IV contrast. Findings: The imaged lung bases are clear. There is no evidence of free air below the diaphragm. The study is mildly degraded by motion artifact. Gallbladder is surgically absent. No acute abnormalities of the liver, spleen, pancreas, or bilateral adrenal glands. No hydronephrosis or radiopaque renal calculi identified. Aorta caliber is normal. No lymphadenopathy or free fluid is observed. There are no pathologically distended large or small bowel segments. Within limitations of a noncontrast exam, no aggressively thickened or acutely inflamed bowel loops are observed. The bladder is decompressed by Aguilera catheter and the uterus is surgically absent. A normal appendix is demonstrated. Review of bone windows demonstrates no aggressive bony lesions or acute osseous abnormalities. Scoliotic curvature of the spine is noted incidentally and is associated with degenerative disc disease and spondylosis at various levels IMPRESSION: 1. No acute intra-abdominal or pelvic abnormalities identified. 2. Other chronic postsurgical and other incidental findings as discussed above. Reported By:
[2018-07-16] MEDS: NS 1000 ML 1,000 ML IV SCH (22:21)
[2018-07-16 22:30] LABS: CKMB % 0.9 % (<4); CREATINE KINASE MB 2.7 ng/mL (0-4.0); TROPONIN I 0.78 ng/mL (0-1.5)
[2018-07-16 23:04] VITALS: BMI 24.3
[2018-07-17 05:26] LABS: BASOPHILS # (AUTO) 0.1 X10^3/uL (0.0-0.1); BASOPHILS % (AUTO) 0.6 % (0.2-1.0); EOSINOPHILS # (AUTO) 0.1 x10^3/uL (0.0-0.2); EOSINOPHILS % (AUTO) 1.4 % (0.9-2.9); HEMATOCRIT 42.9 % (36.0-47.0); HEMOGLOBIN 14.5 g/dL (12.0-16.0); LYMPHOCYTES # (AUTO) 1.5 X10^3/uL (1.3-2.9); LYMPHOCYTES % (AUTO) 15.2 % (21.0-51.0); MEAN CORPUSCULAR HEMOGLOBIN 32.9 pg (27.0-34.0); MEAN CORPUSCULAR HGB CONC 33.8 g/dL (33.0-35.0); MEAN CORPUSCULAR VOLUME 97.4 fL (80.0-100.0); MEAN PLATELET VOLUME 8.9 fL (7.4-11.0); MONOCYTES # (AUTO) 0.9 x10^3/uL (0.3-0.8); MONOCYTES % (AUTO) 9.2 % (0.0-13.0); NEUTROPHILS # (AUTO) 7.4 x10^3/uL (2.2-4.8); NEUTROPHILS % (AUTO) 73.6 % (42.0-75.0); PLATELET COUNT 377 X10^3/uL (150.0-450.0); RED CELL DISTRIBUTION WIDTH 14.2 % (11.6-16.5); WHITE BLOOD COUNT 10.1 X10^3/uL (3.6-10.0)
[2018-07-17 05:41] LABS: ALANINE AMINOTRANSFERASE 30 Units/L (12-78); ALBUMIN 2.8 g/dL (3.4-5.0); ALKALINE PHOSPHATASE 68 Units/L (46-116); ASPARTATE AMINO TRANSFERASE 32 Units/L (15-37); BLOOD UREA NITROGEN 20 mg/dL (7-18); CALCIUM 9.5 mg/dL (8.5-10.1); CARBON DIOXIDE 21.6 mmol/L (21-32); CHLORIDE 111 mmol/L (98-107); CKMB % 1.5 % (<4); COR CA(FOR HYPOALB) 10.5 mg/dL (8.5-10.1); CREATINE KINASE 169 Units/L (26-192); CREATINE KINASE MB 2.5 ng/mL (0-4.0); CREATININE 0.76 mg/dL (0.55-1.02); SODIUM 148 mmol/L (136-145); TOTAL PROTEIN 7.5 g/dL (6.4-8.2); eGFR NON BLACK RACES > 60 (>60)
[2018-07-17] MEDS: NS 1000 ML 1,000 ML IV SCH ×2 (09:10→20:17)
[2018-07-17 10:20] LABS: CKMB % 1.3 % (<4); CREATINE KINASE MB 1.8 ng/mL (0-4.0); TROPONIN I 0.56 ng/mL (0-1.5)
--- NOTE | 2018-07-17 10:49 | DR.H&P ---
H&P - History & Physical for Day of: H&P Date: 07/16/18 - Chief Complaint Chief Complaint: AMS, ABDOMINAL PAIN - History of Present Illness History of Present Illness: IS A 82 YEAR OLD PATIENT OF OURS WHO PRESENTED TO THE EMERGENCY ROOM LAST NIGHT VIA EMS WITH FAMILY REPORTING INCREASED DROWSINESS AND MOANING. ON ARRIVAL TO THE ER, PATIENT ONLY MOANS TO PAINFUL STIMULI AND UPON PALPATION OF THE ABDOMEN. VITALS WERE 98.9-97-16-90%RA- 176/72. LABS WERE OBTAINED. ABNORMAL LAB VALUES INCLUDE THE FOLLOWING: SODIUM 146, CHLORIDE 109, AST 43, CREATINE KINASE 289, ALBUMIN 3.0, GLOBULIN 4.7, AMYLASE 15, LIPASE 59. BLOOD CULTURES PENDING. A BRAIN CT WAS OBTAINED AND REVEALED: No acute intracranial abnormalities. Moderate cortical atrophy with ex vacuo dilatation of the ventricular system. 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 Right maxillary sinusitis. AN ABDOMEN/PELVIS CT WITHOUT CONTRAST WAS OBTAINED AND REVEALED: No acute intra- abdominal or pelvic abnormalities identified. AN EKG WAS OBTAINED AND REVEALED: SINUS TACHYCARDIA WITH HR 101. SHE WAS ADMITTED TO THE HOSPITAL FOR FURTHER EVALUATION AND TREATMENT OF AMS AND ABDOMINAL PAIN. SHE WAS STARTED ON NORMAL SALINE AT 75ML/HR. WE PLAN TO FOLLOW UP WITH AM LABS AND CONTINUE TO MONITOR. - Past Medical History Past Medical History: Hypertension, Dementia, Anxiety, Hyperthyroidism, CVA, COPD, Arthritis - Past Surgical History Surgical History: Cholecystectomy, Hysterectomy, Ortho Surgery - Family History Family Medical History: Cancer - Social History Does patient currently use any type of tobacco product: No Have you used tobacco products in the last 12 months: No Type of Tobacco Use: None Does any household member use tobacco: No Alcohol Use: None Drug Use: None - Medications Home Medications: beeswax Allergy (Verified 07/16/18 15:34) morphine Allergy (Verified 07/16/18 15:34) nifedipine Allergy (Verified 07/16/18 15:34) CONTINUE taking the following medications diazepam 10 mg PO HS 07/16/18 [History] - Review of Systems Constitutional: See HPI, Weakness Eyes: No Symptoms Reported ENT: No Symptoms Reported Respiratory: No Symptoms Reported Cardiovascular: No Symptoms Reported Gastrointestinal: Abdominal Pain Genitourinary: No Symptoms Reported Musculoskeletal: No Symptoms Reported Skin: No Symptoms Reported Neurological: Weakness - Physical Exam Vital Signs: Temperature 97.7 F Pulse Rate [Right Radial] 89 Pulse Rate [Left] 86 Pulse Rate 90 Respiratory Rate 18 Blood Pressure [Left Arm] 130/77 Blood Pressure [Right Arm] 137/95 Blood Pressure 142/83 O2 Sat by Pulse Oximetry 99 Oriented: Unable to test Eyes: Normal Ear: Normal Nose: Normal Throat: Normal Respiratory: Diminished Throughout Cardiovascular: Normal. negative: S3, S4, Murmur, Edema : Normal Auscultation: Bowel Sounds: Normal Palpation: Normal Tenderness: Normal Skin: Normal Musculoskeletal: Normal Psychiatric: Other (DROWSY ) Mood Description: Flat Speech Pattern: Unclear, Inappropriate - Assessment/Plan (1) Abdominal pain Qualifiers: Status: Acute (2) Altered mental status Status: Acute - Allergies Allergies/Adverse Reactions: Allergies Allergy/AdvReac Type Severity Reaction Status Date / Time beeswax Allergy Verified 07/16/18 15:34 morphine Allergy Verified 07/16/18 15:34 nifedipine Allergy Verified 07/16/18 15:34
[2018-07-17] MEDS: LOVENOX INJ 40 MG SYR SC SCH (11:08)
--- NOTE | 2018-07-17 21:29 | PCM.PROG ---
Progress Note - Progress Note for Day of Date of Exam: 07/17/18 - Subjective Subjective: WAS ADMITTED FOR ALTERED MENTAL STATUS AND ABDOMINAL PAIN. TODAY, SHE CONTINUES WITH DROWSINESS. SHE IS ONLY RESPONSIVE TO PAINFUL STIMULI AT THIS TIME. ON EXAMINATION, HEART IS REGULAR IN RATE AND RHYTHM. BILATERAL LUNGS ARE NOTED WITH DIMINISHED LUNG SOUNDS THROUGHOUT. ABDOMEN IS ROUND, SOFT, AND NON-TENDER WITH NORMAL BOWEL SOUNDS NOTED THROUGHOUT. HER VITALS THIS MORNING ARE 98.0-98-18-100%-139/76. LABS WERE OBTAINED. ABNORMAL LAB VALUES INCLUDE THE FOLLOWING: WBC 10.1, SODIUM 148, CHLORIDE 111, BUN 20ALBUMIN 2.8, ALBUMIN 4.7, CARDIAC ENZYMES WITHIN NORMAL LIMITS. TODAY, WE WILL HOLD HER HOME MEDICATIONS AND CONTINUE TO MONITOR. OTHERWISE, WE WILL FOLLOW UP WITH AM LABS AND CONTINUE TO MONITOR. - Past Medical Family Social History Past Med/Fam/Surg Hx: No changes since H&P Allergies: Allergies beeswax Allergy (Verified 07/16/18 15:34) morphine Allergy (Verified 07/16/18 15:34) nifedipine Allergy (Verified 07/16/18 15:34) - Review of Systems ROS: No change since H&P - Vital Signs and I&O's Vital Signs: Temperature 98.7 F Pulse Rate [Right Radial] 89 Pulse Rate [Left] 86 Pulse Rate 104 Respiratory Rate 24 Blood Pressure [Left Arm] 130/77 Blood Pressure [Right Arm] 137/95 Blood Pressure 153/80 O2 Sat by Pulse Oximetry 99 Intake and Output: Intake & Output 07/15/18 07/16/18 07/17/18 07/18/18 11:59 11:59 11:59 11:59 Intake Total 169 / 169 668 / 668 Output Total 300 / 300 300 / 300 Balance -131 / -131 368 / 368 - Physical Exam Oriented: Unable to test Eyes: Normal Ear: Normal Nose: Normal Throat: Normal Respiratory: Generalized, Diminished Cardiovascular: Normal. negative: S3, S4, Murmur, Edema : Normal Auscultation: Bowel Sounds: Normal Palpation: Normal Tenderness: Normal Skin: Normal Musculoskeletal: Normal Psychiatric: Other (DROWSY ) Mood Description: Flat Speech Pattern: Unclear, Inappropriate - Laboratory and Diagnostics Result Diagrams: 07/17/18 05:02 07/17/18 05:02 Labs: Laboratory WBC 10.1 X10^3/uL (3.6-10.0) H 07/17/18 05:02 RBC 4.40 X10^6/uL (3.5-5.4) 07/17/18 05:02 Hgb 14.5 g/dL (12.0-16.0) 07/17/18 05:02 Hct 42.9 % (36.0-47.0) 07/17/18 05:02 MCV 97.4 fL (80.0-100.0) 07/17/18 05:02 MCH 32.9 pg (27.0-34.0) 07/17/18 05:02 MCHC 33.8 g/dL (33.0-35.0) 07/17/18 05:02 RDW 14.2 % (11.6-16.5) 07/17/18 05:02 Plt Count 377 X10^3/uL (150.0-450.0) 07/17/18 05:02 MPV 8.9 fL (7.4-11.0) 07/17/18 05:02 Neut % (Auto) 73.6 % (42.0-75.0) 07/17/18 05:02 Lymph % (Auto) 15.2 % (21.0-51.0) L 07/17/18 05:02 [place] % (Auto) 9.2 % (0.0-13.0) 07/17/18 05:02 Eos % (Auto) 1.4 % (0.9-2.9) 07/17/18 05:02 Baso % (Auto) 0.6 % (0.2-1.0) 07/17/18 05:02 Neut # (Auto) 7.4 x10^3/uL (2.2-4.8) H 07/17/18 05:02 Lymph # (Auto) 1.5 X10^3/uL (1.3-2.9) 07/17/18 05:02 [place] # (Auto) 0.9 x10^3/uL (0.3-0.8) H 07/17/18 05:02 Eos # (Auto) 0.1 x10^3/uL (0.0-0.2) 07/17/18 05:02 Baso # (Auto) 0.1 X10^3/uL (0.0-0.1) 07/17/18 05:02 Absolute Nucleated RBC 0.0 /100WBC 07/17/18 05:02 Sodium 148 mmol/L (136-145) H 07/17/18 05:02 Corrected Sodium TNP 07/17/18 05:02 Potassium 3.9 mmol/L (3.5-5.1) 07/17/18 05:02 Chloride 111 mmol/L (98-107) H 07/17/18 05:02 Carbon Dioxide 21.6 mmol/L (21-32) 07/17/18 05:02 BUN 20 mg/dL (7-18) H 07/17/18 05:02 Creatinine 0.76 mg/dL (0.55-1.02) 07/17/18 05:02 Est GFR (MDRD) Af Amer > 60 (>60) 07/17/18 05:02 Est GFR (MDRD) Non-Af > 60 (>60) 07/17/18 05:02 Glucose 97 mg/dL (65-99) 07/17/18 05:02 Lactic Acid 1.2 mmol/L (0.4-2.0) 07/16/18 17:30 Calcium 9.5 mg/dL (8.5-10.1) 07/17/18 05:02 Corrected Calcium 10.5 mg/dL (8.5-10.1) H 07/17/18 05:02 Magnesium 2.0 mg/dL (1.7-2.9) 07/17/18 05:02 Total Bilirubin 0.40 mg/dL (0.2-1.0) 07/17/18 05:02 AST 32 Units/L (15-37) 07/17/18 05:02 ALT 30 Units/L (12-78) 07/17/18 05:02 Alkaline Phosphatase 68 Units/L (46-116) 07/17/18 05:02 Creatine Kinase 139 Units/L (26-192) 07/17/18 09:50 CK-MB (CK-2) 1.8 ng/mL (0-4.0) 07/17/18 09:50 CK/CKMB % Calc 1.3 % (<4) 07/17/18 09:50 Troponin I 0.56 ng/mL (0-1.5) 07/17/18 09:50 Total Protein 7.5 g/dL (6.4-8.2) 07/17/18 05:02 Albumin 2.8 g/dL (3.4-5.0) L 07/17/18 05:02 Globulin 4.7 g/dL (2.5-4.5) H 07/17/18 05:02 Albumin/Globulin Ratio 0.6 Ratio (1.1-2.1) L 07/17/18 05:02 Amylase 15 Units/L (25-115) L 07/16/18 17:30 Lipase 59 Units/L (73-393) L 07/16/18 17:30 Specimen Type Catherized urine 07/16/18 18:32 Urine Color Yellow (YELLOW) 07/16/18 18:32 Urine Appearance Clear (CLEAR) 07/16/18 18:32 Urine pH 5.0 (5.0 - 8.0) 07/16/18 18:32 Ur Specific [place] 1.020 (1.000-1.030) 07/16/18 18:32 Urine Protein 2+ (NEGATIVE) 07/16/18 18:32 Urine Glucose (UA) Negative (NEGATIVE) 07/16/18 18:32 Urine Ketones 4+ (NEGATIVE) 07/16/18 18:32 Urine Occult Blood 1+ (NEGATIVE) 07/16/18 18:32 Urine Nitrite Negative (NEGATIVE) 07/16/18 18:32 Urine Bilirubin Negative (NEGATIVE) 07/16/18 18:32 Urine Urobilinogen Normal (NORMAL) 07/16/18 18:32 Ur Leukocyte Esterase 1+ (NEGATIVE) 07/16/18 18:32 Urine RBC 0-2 /HPF (NONE SEEN) 07/16/18 18:32 Urine WBC 0-2 /HPF (NONE SEEN) 07/16/18 18:32 Ur Squamous Epith Cells Rare /HPF (NEGATIVE) 07/16/18 18:32 Urine Bacteria Negative /HPF (NEGATIVE) 07/16/18 18:32 Urine Mucus Many /HPF (NEGATIVE) 07/16/18 18:32 Ur Culture Indicated? No/not indicated 07/16/18 18:32 - Plan (1) Abdominal pain Status: Acute Qualifiers: (2) Altered mental status Status: Acute Qualifiers: Altered mental status type: transient alteration of awareness Qualified Code(s): R40.4 - Transient alteration of awareness
[2018-07-18] MEDS: NS 1000 ML 1,000 ML IV SCH (05:11)
[2018-07-18 05:23] LABS: BASOPHILS # (AUTO) 0.1 X10^3/uL (0.0-0.1); BASOPHILS % (AUTO) 0.7 % (0.2-1.0); EOSINOPHILS # (AUTO) 0.2 x10^3/uL (0.0-0.2); EOSINOPHILS % (AUTO) 1.9 % (0.9-2.9); HEMATOCRIT 40.4 % (36.0-47.0); HEMOGLOBIN 13.3 g/dL (12.0-16.0); LYMPHOCYTES # (AUTO) 1.4 X10^3/uL (1.3-2.9); LYMPHOCYTES % (AUTO) 16.4 % (21.0-51.0); MEAN CORPUSCULAR HEMOGLOBIN 32.5 pg (27.0-34.0); MEAN CORPUSCULAR HGB CONC 32.9 g/dL (33.0-35.0); MEAN CORPUSCULAR VOLUME 98.8 fL (80.0-100.0); MEAN PLATELET VOLUME 8.9 fL (7.4-11.0); MONOCYTES # (AUTO) 0.8 x10^3/uL (0.3-0.8); MONOCYTES % (AUTO) 9.1 % (0.0-13.0); NEUTROPHILS # (AUTO) 6.3 x10^3/uL (2.2-4.8); NEUTROPHILS % (AUTO) 71.9 % (42.0-75.0); PLATELET COUNT 359 X10^3/uL (150.0-450.0); RED BLOOD COUNT 4.09 X10^6/uL (3.5-5.4); WHITE BLOOD COUNT 8.7 X10^3/uL (3.6-10.0)
[2018-07-18 05:43] LABS: ALANINE AMINOTRANSFERASE 32 Units/L (12-78); ALBUMIN 2.5 g/dL (3.4-5.0); ALKALINE PHOSPHATASE 56 Units/L (46-116); ASPARTATE AMINO TRANSFERASE 32 Units/L (15-37); BLOOD UREA NITROGEN 22 mg/dL (7-18); CALCIUM 9.3 mg/dL (8.5-10.1); CARBON DIOXIDE 22.1 mmol/L (21-32); COR CA(FOR HYPOALB) 10.5 mg/dL (8.5-10.1); CREATININE 0.69 mg/dL (0.55-1.02); TOTAL PROTEIN 6.8 g/dL (6.4-8.2); eGFR NON BLACK RACES > 60 (>60)
[2018-07-18 06:03] LABS: CHLORIDE 115 mmol/L (98-107); SODIUM 151 mmol/L (136-145)
[2018-07-18] MEDS ORDERED: NS 1/2 1000 ML IV 1,000 ML IV ONE (06:12)
[2018-07-18] MEDS ORDERED: POTASSIUM CHL 40 MEQ/NS 0.45% 500 ML IV PRN (06:35)
[2018-07-18] MEDS ORDERED: KLOR-CON PO PRN (06:35)
[2018-07-18] MEDS ORDERED: POTASSIUM CHL 60 MEQ/NS 0.45% 500 ML IV PRN (06:35)
[2018-07-18] MEDS ORDERED: MICRO K EXTEN CAP 10 MEQ PO PRN (06:35)
[2018-07-18] MEDS ORDERED: K-DUR TAB 20 MEQ PO PRN (06:35)
[2018-07-18] MEDS ORDERED: MAGNESIUM SULFATE 1 GRAM/100 mL PREMIX 1 GM/100 ML BAG IV PRN (06:35)
[2018-07-18] MEDS ORDERED: POTASSIUM CHLORIDE LIQ 20 MEQ UDC PO PRN (06:35)
[2018-07-18] MEDS ORDERED: NS 1/2 1000 ML IV 1,000 ML IV SCH (07:00)
[2018-07-18] MEDS: LOVENOX INJ 40 MG SYR SC SCH (08:40)
[2018-07-18] MEDS: D5W 1000 ML IV 1,000 ML IV SCH ×2 (11:10→23:13)
--- NOTE | 2018-07-18 11:17 | CT ---
HEAD CT WITHOUT IV CONTRAST CLINICAL INDICATION: Altered mental status, reportedly different than patient's altered mental status 07/16/2018. TECHNIQUE: Axial CT images from skull base to vertex without IV contrast.Dose reduction techniques including Automated Exposure Control (AEC) and adjustment of mA and kV were utlized. COMPARISON: 07/16/2018 for the same indication FINDINGS: Diffuse patchy and confluent white matter hypoattenuation with associated volume loss Redemonstration of right frontal lobe encephalomalacia. Chronic lacunar infarcts including the anterior limb of the right internal capsule as well as other locations There is no evidence of acute infarction, intracranial hemorrhage, mass or mass effect, or abnormal extra-axial collection. The density of the larger dural venous sinuses is normal. Age-related, ex-vacuo dilatation of the ventricles and sulci. The skull base and calvarium are normal. The included paranasal sinuses and mastoid air cells are predominantly clear. IMPRESSION: 1. No acute intracranial abnormality. No change in evidence of prior ischemia. Chronic microangiopathic changes and ex vacuo dilatation of the ventricles and sulci. If there is definite, focal, acute neurologic deficit, MRI with diffusion-weighted imaging would be more sensitive for detection of acute stroke. Reported By:
[2018-07-18] MEDS ORDERED: ROMAZICON INJ 0.5 MG IVP NR (11:50)
[2018-07-18] MEDS ORDERED: ROMAZICON INJ 0.5 MG ONE (12:35)
--- NOTE | 2018-07-18 19:40 | PCM.PROG ---
Progress Note - Progress Note for Day of Date of Exam: 07/18/18 - Subjective Subjective: WAS ADMITTED FOR ALTERED MENTAL STATUS AND ABDOMINAL PAIN. TODAY, SHE CONTINUES WITH DROWSINESS. SHE IS ONLY RESPONSIVE TO PAINFUL STIMULI AT THIS TIME. FAMILY REPORTS THAT SHE DID WAKE UP BRIEFLY EARLY THIS MORNING. ON EXAMINATION, HEART IS REGULAR IN RATE AND RHYTHM. BILATERAL LUNGS ARE NOTED WITH DIMINISHED LUNG SOUNDS THROUGHOUT. ABDOMEN IS ROUND, SOFT, AND NON-TENDER WITH NORMAL BOWEL SOUNDS NOTED THROUGHOUT. HER VITALS THIS MORNING ARE 98.4-87-50-97%-172/84. LABS WERE OBTAINED. ABNORMAL LAB VALUES INCLUDE THE FOLLOWING: SODIUM 151, CHLORIDE 115, BUN 22, ALBUMIN 2.5. TODAY, WE WILL REPEAT A BRAIN CT. IF CT IS NORMAL, WE WILL ADMINISTER ROMAZICON 0.25MG IV X 1 DOSE. WE WILL CHANGE IV FLUIDS TO D5W @ 75ML/HR. OTHERWISE, WE WILL FOLLOW UP WITH AM LABS AND CONTINUE TO MONITOR. - Past Medical Family Social History Past Med/Fam/Surg Hx: No changes since H&P Allergies: Allergies beeswax Allergy (Verified 07/16/18 15:34) morphine Allergy (Verified 07/16/18 15:34) nifedipine Allergy (Verified 07/16/18 15:34) - Review of Systems ROS: No change since H&P - Vital Signs and I&O's Vital Signs: Temperature 98.9 F Pulse Rate [Right Radial] 89 Pulse Rate [Left] 86 Pulse Rate 96 Respiratory Rate 20 Blood Pressure [Left Arm] 130/77 Blood Pressure [Right Arm] 137/95 Blood Pressure 146/71 O2 Sat by Pulse Oximetry 95 Intake and Output: Intake & Output 07/16/18 07/17/18 07/18/18 07/19/18 11:59 11:59 11:59 11:59 Intake Total 169 / 169 1537 / 1537 0 / 0 Output Total 300 / 300 550 / 550 300 / 300 Balance -131 / -131 987 / 987 -300 / -300 - Physical Exam Oriented: Unable to test Eyes: Normal Ear: Normal Nose: Normal Throat: Normal Respiratory: Generalized, Diminished Cardiovascular: Normal. negative: S3, S4, Murmur, Edema : Normal Auscultation: Bowel Sounds: Normal Palpation: Normal Tenderness: Normal Skin: Normal Musculoskeletal: Normal Psychiatric: Other (DROWSY ) Mood Description: Flat Speech Pattern: Unclear, Inappropriate - Laboratory and Diagnostics Result Diagrams: 07/18/18 04:55 07/18/18 04:55 Labs: 07/16/18 17:39 Blood Blood Culture - Preliminary 07/16/18 17:30 Blood Blood Culture - Preliminary Laboratory WBC 8.7 X10^3/uL (3.6-10.0) 07/18/18 04:55 RBC 4.09 X10^6/uL (3.5-5.4) 07/18/18 04:55 Hgb 13.3 g/dL (12.0-16.0) 07/18/18 04:55 Hct 40.4 % (36.0-47.0) 07/18/18 04:55 MCV 98.8 fL (80.0-100.0) 07/18/18 04:55 MCH 32.5 pg (27.0-34.0) 07/18/18 04:55 MCHC 32.9 g/dL (33.0-35.0) L 07/18/18 04:55 RDW 14.0 % (11.6-16.5) 07/18/18 04:55 Plt Count 359 X10^3/uL (150.0-450.0) 07/18/18 04:55 MPV 8.9 fL (7.4-11.0) 07/18/18 04:55 Neut % (Auto) 71.9 % (42.0-75.0) 07/18/18 04:55 Lymph % (Auto) 16.4 % (21.0-51.0) L 07/18/18 04:55 [place] % (Auto) 9.1 % (0.0-13.0) 07/18/18 04:55 Eos % (Auto) 1.9 % (0.9-2.9) 07/18/18 04:55 Baso % (Auto) 0.7 % (0.2-1.0) 07/18/18 04:55 Neut # (Auto) 6.3 x10^3/uL (2.2-4.8) H 07/18/18 04:55 Lymph # (Auto) 1.4 X10^3/uL (1.3-2.9) 07/18/18 04:55 [place] # (Auto) 0.8 x10^3/uL (0.3-0.8) 07/18/18 04:55 Eos # (Auto) 0.2 x10^3/uL (0.0-0.2) 07/18/18 04:55 Baso # (Auto) 0.1 X10^3/uL (0.0-0.1) 07/18/18 04:55 Absolute Nucleated RBC 0.1 /100WBC 07/18/18 04:55 Sodium 151 mmol/L (136-145) H* 07/18/18 04:55 Corrected Sodium TNP 07/18/18 04:55 Potassium 3.5 mmol/L (3.5-5.1) 07/18/18 04:55 Chloride 115 mmol/L (98-107) H* 07/18/18 04:55 Carbon Dioxide 22.1 mmol/L (21-32) 07/18/18 04:55 BUN 22 mg/dL (7-18) H 07/18/18 04:55 Creatinine 0.69 mg/dL (0.55-1.02) 07/18/18 04:55 Est GFR (MDRD) Af Amer > 60 (>60) 07/18/18 04:55 Est GFR (MDRD) Non-Af > 60 (>60) 07/18/18 04:55 Glucose 88 mg/dL (65-99) 07/18/18 04:55 Lactic Acid 1.2 mmol/L (0.4-2.0) 07/16/18 17:30 Calcium 9.3 mg/dL (8.5-10.1) 07/18/18 04:55 Corrected Calcium 10.5 mg/dL (8.5-10.1) H 07/18/18 04:55 Magnesium 1.9 mg/dL (1.7-2.9) 07/18/18 04:55 Total Bilirubin 0.40 mg/dL (0.2-1.0) 07/18/18 04:55 AST 32 Units/L (15-37) 07/18/18 04:55 ALT 32 Units/L (12-78) 07/18/18 04:55 Alkaline Phosphatase 56 Units/L (46-116) 07/18/18 04:55 Creatine Kinase 139 Units/L (26-192) 07/17/18 09:50 CK-MB (CK-2) 1.8 ng/mL (0-4.0) 07/17/18 09:50 CK/CKMB % Calc 1.3 % (<4) 07/17/18 09:50 Troponin I 0.56 ng/mL (0-1.5) 07/17/18 09:50 Total Protein 6.8 g/dL (6.4-8.2) 07/18/18 04:55 Albumin 2.5 g/dL (3.4-5.0) L 07/18/18 04:55 Globulin 4.3 g/dL (2.5-4.5) 07/18/18 04:55 Albumin/Globulin Ratio 0.6 Ratio (1.1-2.1) L 07/18/18 04:55 Amylase 15 Units/L (25-115) L 07/16/18 17:30 Lipase 59 Units/L (73-393) L 07/16/18 17:30 Specimen Type Catherized urine 07/16/18 18:32 Urine Color Yellow (YELLOW) 07/16/18 18:32 Urine Appearance Clear (CLEAR) 07/16/18 18:32 Urine pH 5.0 (5.0 - 8.0) 07/16/18 18:32 Ur Specific [place] 1.020 (1.000-1.030) 07/16/18 18:32 Urine Protein 2+ (NEGATIVE) 07/16/18 18:32 Urine Glucose (UA) Negative (NEGATIVE) 07/16/18 18:32 Urine Ketones 4+ (NEGATIVE) 07/16/18 18:32 Urine Occult Blood 1+ (NEGATIVE) 07/16/18 18:32 Urine Nitrite Negative (NEGATIVE) 07/16/18 18:32 Urine Bilirubin Negative (NEGATIVE) 07/16/18 18:32 Urine Urobilinogen Normal (NORMAL) 07/16/18 18:32 Ur Leukocyte Esterase 1+ (NEGATIVE) 07/16/18 18:32 Urine RBC 0-2 /HPF (NONE SEEN) 07/16/18 18:32 Urine WBC 0-2 /HPF (NONE SEEN) 07/16/18 18:32 Ur Squamous Epith Cells Rare /HPF (NEGATIVE) 07/16/18 18:32 Urine Bacteria Negative /HPF (NEGATIVE) 07/16/18 18:32 Urine Mucus Many /HPF (NEGATIVE) 07/16/18 18:32 Ur Culture Indicated? No/not indicated 07/16/18 18:32 - Plan (1) Abdominal pain Status: Acute Qualifiers: (2) Altered mental status Status: Acute Qualifiers: Altered mental status type: transient alteration of awareness Qualified Code(s): R40.4 - Transient alteration of awareness Plan: REPEAT BRAIN CT, ROMAZICON 0.25MG IV X 1 DOSE, CONTINUE TO MONITOR
[2018-07-19 05:38] LABS: BASOPHILS # (AUTO) 0.1 X10^3/uL (0.0-0.1); BASOPHILS % (AUTO) 1.6 % (0.2-1.0); EOSINOPHILS # (AUTO) 0.3 x10^3/uL (0.0-0.2); EOSINOPHILS % (AUTO) 3.6 % (0.9-2.9); HEMOGLOBIN 13.1 g/dL (12.0-16.0); LYMPHOCYTES # (AUTO) 1.6 X10^3/uL (1.3-2.9); LYMPHOCYTES % (AUTO) 19.3 % (21.0-51.0); MEAN CORPUSCULAR HGB CONC 32.8 g/dL (33.0-35.0); MEAN CORPUSCULAR VOLUME 97.6 fL (80.0-100.0); MEAN PLATELET VOLUME 9.5 fL (7.4-11.0); MONOCYTES % (AUTO) 11.8 % (0.0-13.0); NEUTROPHILS # (AUTO) 5.3 x10^3/uL (2.2-4.8); NEUTROPHILS % (AUTO) 63.7 % (42.0-75.0); PLATELET COUNT 340 X10^3/uL (150.0-450.0); WHITE BLOOD COUNT 8.4 X10^3/uL (3.6-10.0)
[2018-07-19 05:50] LABS: ALANINE AMINOTRANSFERASE 34 Units/L (12-78); ALBUMIN 2.4 g/dL (3.4-5.0); ALKALINE PHOSPHATASE 59 Units/L (46-116); ASPARTATE AMINO TRANSFERASE 36 Units/L (15-37); BLOOD UREA NITROGEN 16 mg/dL (7-18); CALCIUM 8.9 mg/dL (8.5-10.1); CARBON DIOXIDE 24.6 mmol/L (21-32); CHLORIDE 107 mmol/L (98-107); COR CA(FOR HYPOALB) 10.2 mg/dL (8.5-10.1); COR NA(FOR HYPERGLY) 143 mmol/L (136-145); CREATININE 0.65 mg/dL (0.55-1.02); SODIUM 143 mmol/L (136-145); TOTAL PROTEIN 6.6 g/dL (6.4-8.2); eGFR NON BLACK RACES > 60 (>60)
[2018-07-19] MEDS: K-RIDER 10 MEQ/NS 100 ML 10 MEQ/100 ML BAG IV PRN ×6 (06:12→13:05)
[2018-07-19] MEDS: LOVENOX INJ 40 MG SYR SC SCH (09:11)
--- NOTE | 2018-07-19 11:50 | RAD ---
Exam: Portable chest History: 73-year-old female with fever and shortness of breath. Comparison: Previous chest radiograph from 07/03/2018. Findings: Heart size and pulmonary vasculature are normal. Lungs are clear with no infiltrate or significant effusion on either side. Bony thorax is unremarkable as well. Impression: No acute cardiopulmonary abnormality is seen on this exam Reported By:
[2018-07-19] MEDS: D5W 1000 ML IV 1,000 ML IV SCH (13:05)
[2018-07-19 15:03] LABS: BILIRUBIN,URINE NEGATIVE (NEGATIVE); BLOOD/HEMOGLOBIN,URINE 4+ (NEGATIVE); GLUCOSE, URINE NEGATIVE (NEGATIVE); KETONES,URINE NEGATIVE (NEGATIVE); LEUKOCYTE ESTERASE ,URINE 2+ (NEGATIVE); NITRITES,URINE NEGATIVE (NEGATIVE); PROTEIN,URINE 2+ (NEGATIVE); UROBILINOGEN,URINE NORMAL (NORMAL)
[2018-07-19 15:14] LABS: APPEARANCE,URINE HAZY (CLEAR); COLOR,URINE YELLOW (YELLOW); RBC,URINE TNTC /HPF (NONE SEEN)
[2018-07-19 15:15] LABS: BACTERIA,URINE TRACE /HPF (NEGATIVE); MUCUS,URINE FEW /HPF (NEGATIVE); SQUAMOUS EPITHELIAL CELL,UR RARE /HPF (NEGATIVE)
[2018-07-19 15:29] LABS: STREP A BY PCR NOT DETECTED (NOT DETECT)
--- NOTE | 2018-07-19 20:46 | PCM.PROG ---
Progress Note - Progress Note for Day of Date of Exam: 07/19/18 - Subjective Subjective: WAS ADMITTED FOR ALTERED MENTAL STATUS AND ABDOMINAL PAIN. TODAY, SHE CONTINUES WITH DROWSINESS AND IS ONLY RESPONSIVE TO PAINFUL STIMULI AT THIS TIME. FAMILY REPORTS THAT SHE WAS SLIGHTLY MORE RESPONSIVE AFTER ADMINISTRATION OF ROMAZICON YESTERDAY, HOWEVER, QUICKLY RETURNED TO THE STATE THAT SHE IS CURRENTLY IN. ON EXAMINATION, HEART IS REGULAR IN RATE AND RHYTHM. BILATERAL LUNGS ARE NOTED WITH DIMINISHED LUNG SOUNDS THROUGHOUT. ABDOMEN IS ROUND, SOFT, AND NON-TENDER WITH NORMAL BOWEL SOUNDS NOTED THROUGHOUT. SHE HAS BEEN FEBRILE THROUGHOUT THE NIGHT. HER VITALS THIS MORNING ARE 98.4-84-22-95%-174/94. LABS WERE OBTAINED. ABNORMAL LAB VALUES INCLUDE THE FOLLOWING: POTASSIUM 2.6, GLUCOSE 114, ALBUMIN 2.4. TODAY, WE WILL OBTAIN A CHEST XRAY, REPEAT URINE, AND OBTAIN A FLU AND STREP SWAB. WE WILL REPEAT OBTAIN A URINE CULTURE. OTHERWISE, WE WILL CONTINUE WITH CURRENT PLAN OF CARE. WE WILL FOLLOW UP WITH AM LABS AND CONTINUE TO MONITOR. - Past Medical Family Social History Past Med/Fam/Surg Hx: No changes since H&P Allergies: Allergies beeswax Allergy (Verified 07/16/18 15:34) morphine Allergy (Verified 07/16/18 15:34) nifedipine Allergy (Verified 07/16/18 15:34) - Review of Systems ROS: No change since H&P - Vital Signs and I&O's Vital Signs: Temperature 99.2 F Pulse Rate [Right Radial] 89 Pulse Rate [Left] 86 Pulse Rate 84 Respiratory Rate 20 Blood Pressure [Left Arm] 130/77 Blood Pressure [Right Arm] 137/95 Blood Pressure 143/84 O2 Sat by Pulse Oximetry 95 Intake and Output: Intake & Output 07/17/18 07/18/18 07/19/18 07/20/18 11:59 11:59 11:59 11:59 Intake Total 169 / 169 1537 / 1537 600 / 600 0 / 0 Output Total 300 / 300 550 / 550 675 / 675 200 / 200 Balance -131 / -131 987 / 987 -75 / -75 -200 / -200 - Physical Exam Oriented: Unable to test Eyes: Normal Ear: Normal Nose: Normal Throat: Normal Respiratory: Generalized, Diminished Cardiovascular: Normal. negative: S3, S4, Murmur, Edema : Normal Auscultation: Bowel Sounds: Normal Palpation: Normal Tenderness: Normal Skin: Normal Musculoskeletal: Normal Psychiatric: Other (DROWSY ) Mood Description: Flat Speech Pattern: Unclear, Inappropriate - Laboratory and Diagnostics Result Diagrams: 07/19/18 04:17 07/19/18 16:45 Labs: 07/16/18 17:39 Blood Blood Culture - Preliminary 07/16/18 17:30 Blood Blood Culture - Preliminary Laboratory WBC 8.4 X10^3/uL (3.6-10.0) 07/19/18 04:17 RBC 4.10 X10^6/uL (3.5-5.4) 07/19/18 04:17 Hgb 13.1 g/dL (12.0-16.0) 07/19/18 04:17 Hct 40.0 % (36.0-47.0) 07/19/18 04:17 MCV 97.6 fL (80.0-100.0) 07/19/18 04:17 MCH 32.0 pg (27.0-34.0) 07/19/18 04:17 MCHC 32.8 g/dL (33.0-35.0) L 07/19/18 04:17 RDW 14.0 % (11.6-16.5) 07/19/18 04:17 Plt Count 340 X10^3/uL (150.0-450.0) 07/19/18 04:17 MPV 9.5 fL (7.4-11.0) 07/19/18 04:17 Neut % (Auto) 63.7 % (42.0-75.0) 07/19/18 04:17 Lymph % (Auto) 19.3 % (21.0-51.0) L 07/19/18 04:17 [place] % (Auto) 11.8 % (0.0-13.0) 07/19/18 04:17 Eos % (Auto) 3.6 % (0.9-2.9) H 07/19/18 04:17 Baso % (Auto) 1.6 % (0.2-1.0) H 07/19/18 04:17 Neut # (Auto) 5.3 x10^3/uL (2.2-4.8) H 07/19/18 04:17 Lymph # (Auto) 1.6 X10^3/uL (1.3-2.9) 07/19/18 04:17 [place] # (Auto) 1.0 x10^3/uL (0.3-0.8) H 07/19/18 04:17 Eos # (Auto) 0.3 x10^3/uL (0.0-0.2) H 07/19/18 04:17 Baso # (Auto) 0.1 X10^3/uL (0.0-0.1) 07/19/18 04:17 Absolute Nucleated RBC 0.0 /100WBC 07/19/18 04:17 Sodium 143 mmol/L (136-145) 07/19/18 04:17 Corrected Sodium 143 mmol/L (136-145) 07/19/18 04:17 Potassium 3.1 mmol/L (3.5-5.1) L 07/19/18 16:45 Chloride 107 mmol/L (98-107) 07/19/18 04:17 Carbon Dioxide 24.6 mmol/L (21-32) 07/19/18 04:17 BUN 16 mg/dL (7-18) 07/19/18 04:17 Creatinine 0.65 mg/dL (0.55-1.02) 07/19/18 04:17 Est GFR (MDRD) Af Amer > 60 (>60) 07/19/18 04:17 Est GFR (MDRD) Non-Af > 60 (>60) 07/19/18 04:17 Glucose 114 mg/dL (65-99) H 07/19/18 04:17 Lactic Acid 1.2 mmol/L (0.4-2.0) 07/16/18 17:30 Calcium 8.9 mg/dL (8.5-10.1) 07/19/18 04:17 Corrected Calcium 10.2 mg/dL (8.5-10.1) H 07/19/18 04:17 Magnesium 1.9 mg/dL (1.7-2.9) 07/18/18 04:55 Total Bilirubin 0.30 mg/dL (0.2-1.0) 07/19/18 04:17 AST 36 Units/L (15-37) 07/19/18 04:17 ALT 34 Units/L (12-78) 07/19/18 04:17 Alkaline Phosphatase 59 Units/L (46-116) 07/19/18 04:17 Creatine Kinase 139 Units/L (26-192) 07/17/18 09:50 CK-MB (CK-2) 1.8 ng/mL (0-4.0) 07/17/18 09:50 CK/CKMB % Calc 1.3 % (<4) 07/17/18 09:50 Troponin I 0.56 ng/mL (0-1.5) 07/17/18 09:50 Total Protein 6.6 g/dL (6.4-8.2) 07/19/18 04:17 Albumin 2.4 g/dL (3.4-5.0) L 07/19/18 04:17 Globulin 4.2 g/dL (2.5-4.5) 07/19/18 04:17 Albumin/Globulin Ratio 0.6 Ratio (1.1-2.1) L 07/19/18 04:17 Amylase 15 Units/L (25-115) L 07/16/18 17:30 Lipase 59 Units/L (73-393) L 07/16/18 17:30 Specimen Type Catherized urine 07/19/18 14:52 Urine Color Yellow (YELLOW) 07/19/18 14:52 Urine Appearance Hazy (CLEAR) 07/19/18 14:52 Urine pH 7.0 (5.0 - 8.0) 07/19/18 14:52 Ur Specific [place] 1.010 (1.000-1.030) 07/19/18 14:52 Urine Protein 2+ (NEGATIVE) 07/19/18 14:52 Urine Glucose (UA) Negative (NEGATIVE) 07/19/18 14:52 Urine Ketones Negative (NEGATIVE) 07/19/18 14:52 Urine Occult Blood 4+ (NEGATIVE) 07/19/18 14:52 Urine Nitrite Negative (NEGATIVE) 07/19/18 14:52 Urine Bilirubin Negative (NEGATIVE) 07/19/18 14:52 Urine Urobilinogen Normal (NORMAL) 07/19/18 14:52 Ur Leukocyte Esterase 2+ (NEGATIVE) 07/19/18 14:52 Urine RBC Tntc /HPF (NONE SEEN) 07/19/18 14:52 Urine WBC 20-30 /HPF (NONE SEEN) 07/19/18 14:52 Ur Squamous Epith Cells Rare /HPF (NEGATIVE) 07/19/18 14:52 Urine Bacteria Trace /HPF (NEGATIVE) 07/19/18 14:52 Urine Mucus Few /HPF (NEGATIVE) 07/19/18 14:52 Ur Culture Indicated? Yes/culture set up 07/19/18 14:52 Influenza Type A (PCR) Negative (NEGATIVE) 07/19/18 14:52 Influenza Type B (PCR) Negative (NEGATIVE) 07/19/18 14:52 S. pyogenes (TEM-PCR) Not detected (NOT DETECT) 07/19/18 14:52 - Plan (1) Altered mental status Status: Acute Qualifiers: Altered mental status type: transient alteration of awareness Qualified Code(s): R40.4 - Transient alteration of awareness Plan: REPEAT BRAIN CT, ROMAZICON 0.25MG IV X 1 DOSE, CONTINUE TO MONITOR (2) Fever Status: Acute Qualifiers: Fever type: unspecified Qualified Code(s): R50.9 - Fever, unspecified Plan: CHEST XRAY, URINALYSIS AND CULTURE, STREP AND FLU SWAB, CONTINUE TO MONITOR (3) Abdominal pain Status: Acute Qualifiers: Abdominal location: unspecified location Qualified Code(s): R10.9 - Unspecified abdominal pain
[2018-07-19] MEDS: ROCEPHIN VIAL 1 GRAM IVP SCH ×2 (21:50→22:27)
[2018-07-20] MEDS: D5W 1000 ML IV 1,000 ML IV SCH ×2 (02:00→18:33)
[2018-07-20 05:27] LABS: BASOPHILS % (AUTO) 0.5 % (0.2-1.0); EOSINOPHILS # (AUTO) 0.6 x10^3/uL (0.0-0.2); EOSINOPHILS % (AUTO) 7.1 % (0.9-2.9); HEMATOCRIT 38.2 % (36.0-47.0); HEMOGLOBIN 12.9 g/dL (12.0-16.0); LYMPHOCYTES # (AUTO) 1.5 X10^3/uL (1.3-2.9); LYMPHOCYTES % (AUTO) 18.3 % (21.0-51.0); MEAN CORPUSCULAR HEMOGLOBIN 32.5 pg (27.0-34.0); MEAN CORPUSCULAR HGB CONC 33.9 g/dL (33.0-35.0); MEAN PLATELET VOLUME 9.4 fL (7.4-11.0); MONOCYTES # (AUTO) 0.7 x10^3/uL (0.3-0.8); MONOCYTES % (AUTO) 9.3 % (0.0-13.0); NEUTROPHILS # (AUTO) 5.2 x10^3/uL (2.2-4.8); NEUTROPHILS % (AUTO) 64.8 % (42.0-75.0); PLATELET COUNT 327 X10^3/uL (150.0-450.0); RED BLOOD COUNT 3.98 X10^6/uL (3.5-5.4); RED CELL DISTRIBUTION WIDTH 13.9 % (11.6-16.5)
[2018-07-20 05:33] LABS: ALANINE AMINOTRANSFERASE 33 Units/L (12-78); ALBUMIN 2.2 g/dL (3.4-5.0); ALKALINE PHOSPHATASE 59 Units/L (46-116); ASPARTATE AMINO TRANSFERASE 33 Units/L (15-37); BLOOD UREA NITROGEN 8 mg/dL (7-18); CALCIUM 8.7 mg/dL (8.5-10.1); CARBON DIOXIDE 23.5 mmol/L (21-32); CHLORIDE 102 mmol/L (98-107); COR CA(FOR HYPOALB) 10.1 mg/dL (8.5-10.1); COR NA(FOR HYPERGLY) 137 mmol/L (136-145); CREATININE 0.68 mg/dL (0.55-1.02); SODIUM 137 mmol/L (136-145); TOTAL PROTEIN 6.4 g/dL (6.4-8.2); eGFR NON BLACK RACES > 60 (>60)
[2018-07-20] MEDS: K-RIDER 10 MEQ/NS 100 ML 10 MEQ/100 ML BAG IV PRN ×5 (05:50→14:29)
[2018-07-20] MEDS: LOVENOX INJ 40 MG SYR SC SCH (08:54)
[2018-07-20] MEDS: DUONEB 0.5 MG/3 MG NEB SCH ×3 (12:30→20:29)
--- NOTE | 2018-07-20 16:36 | MRI ---
MRI BRAIN WITHOUT CONTRAST CLINICAL HISTORY: 73-year-old female with mental status changes. COMPARISON: CT head 07/18/2018. TECHNIQUE: Multiplanar, multisequence MR images of the brain were obtained without contrast. FINDINGS: Punctate focus of diffusion restriction within the superior aspect left occipital lobe with additional punctate focus of diffusion restriction within the cortex of the right postcentral gyrus with broader area of diffusion restriction within the cortex and subcortical white matter involving the right middle and inferior frontal gyri. Associated signal loss on ADC map and T2 FLAIR hyperintensity with some T2 shine through and T2 FLAIR hyperintensity within the right middle and inferior frontal gyri consistent with acute on chronic ischemic insult. No evidence of hemorrhagic transformation. The craniocervical junction is normal. Pituitary and optic nerve complex are normal. Multifocal confluent and punctate T2 FLAIR signal hyperintensities are present within the periventricular and supraventricular white matter that are nonspecific in appearance but most likely to represent microvascular white matter ischemic changes. Chronic ischemic insult with associated encephalomalacia and surrounding gliosis within the right middle and inferior gyri with superimposed acute ischemic insult. Chronic ischemic insult within the lateral aspect of the superior right occipital lobe within the cortex and subcortical white matter. Additional chronic ischemic insult within the inferior left cerebellar hemisphere with associated encephalomalacia. Subtle cortical laminar necrosis involving the right frontal regions of chronic ischemia as well as the left cerebellar hemisphere. Normal signal characteristics and morphology are demonstrated within the corpus callosum and brainstem. The major vascular flow voids, to include the dural venous sinuses, are intact. No abnormal susceptibility on gradient imaging. Age advanced cortical volume loss is present, with commensurate sulcal and ventricular prominence. The basilar cisterns are normal. The orbits and globes are within normal limits. Scattered mucosal thickening ethmoid labyrinth and bilateral maxillary sinuses with trace mucosal thickening of the sphenoid sinuses with small fluid level left sphenoid sinus. Trace scattered fluid mastoid air cells with tympanic cavities clear. IMPRESSION: 1. Acute ischemic insult involving the right middle and inferior frontal gyri, with punctate foci in the bilateral occipital lobes as described in detail above without evidence of hemorrhagic transformation. 2. 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 3. Fluid level left sphenoid sinus with mucosal thickening throughout the paranasal sinuses as described. Correlate for sinusitis. 4. Scattered fluid mastoid air cells, nonspecific, correlate clinically. Reported By:
[2018-07-20] MEDS: ROCEPHIN VIAL 1 GRAM IVP SCH (21:22)
--- NOTE | 2018-07-20 21:54 | PCM.PROG ---
Progress Note - Progress Note for Day of Date of Exam: 07/20/18 - Subjective Subjective: WAS ADMITTED FOR ALTERED MENTAL STATUS AND ABDOMINAL PAIN. TODAY, SHE CONTINUES WITH DROWSINESS AND DECREASED RESPONSIVENESS. SHE IS UNABLE TO EAT OR TAKE ORAL MEDICATIONS. FAMILY REPORTS THAT SHE HAS HAD A PERSISTENT COUGH. ON EXAMINATION, HEART IS REGULAR IN RATE AND RHYTHM. BILATERAL LUNGS ARE NOTED WITH DIMINISHED LUNG SOUNDS THROUGHOUT. ABDOMEN IS ROUND, SOFT, AND NON- TENDER WITH NORMAL BOWEL SOUNDS NOTED THROUGHOUT. SHE HAS CONTINUED WITH A LOW GRADE TEMPERATURE SINCE YESTERDAY. HER VITALS THIS MORNING ARE 99.7-90-82-92%-135/87. LABS WERE OBTAINED. ABNORMAL LAB VALUES INCLUDE THE FOLLOWING: POTASSIUM 2.7, GLUCOSE 113, ALBUMIN 2.2. A REPEAT URINALYSIS YESTERDAY REVEALED: WBC C20-30, RBC TNTC, LEUKOCYTES 2+, BACTERIA TRACE. A URINE CULTURE IS PENDING. SHE WAS STARTED ON ROCEPHIN 1GM IV DAILY. TODAY, WE WILL OBTAIN A BRAIN MRI AND START NEB TX. OTHERWISE, WE WILL CONTINUE WITH CURRENT PLAN OF CARE. WE WILL FOLLOW UP WITH AM LABS AND CONTINUE TO MONITOR. - Past Medical Family Social History Past Med/Fam/Surg Hx: No changes since H&P Allergies: Allergies beeswax Allergy (Verified 07/16/18 15:34) morphine Allergy (Verified 07/16/18 15:34) nifedipine Allergy (Verified 07/16/18 15:34) - Review of Systems ROS: No change since H&P - Vital Signs and I&O's Vital Signs: Temperature 98.1 F Pulse Rate [Right Radial] 89 Pulse Rate [Left] 86 Pulse Rate 113 Respiratory Rate 20 Blood Pressure [Left Arm] 130/77 Blood Pressure [Right Arm] 137/95 Blood Pressure 142/77 O2 Sat by Pulse Oximetry 95 Intake and Output: Intake & Output 07/18/18 07/19/18 07/20/18 07/21/18 11:59 11:59 11:59 11:59 Intake Total 1537 / 1537 600 / 600 0 / 0 4888 / 4888 Output Total 550 / 550 675 / 675 1075 / 1075 1100 / 1100 Balance 987 / 987 -75 / -75 -1075 / -1075 3788 / 3788 - Physical Exam Oriented: Unable to test Eyes: Normal Ear: Normal Nose: Normal Throat: Normal Respiratory: Generalized, Diminished Cardiovascular: Normal. negative: S3, S4, Murmur, Edema : Normal Auscultation: Bowel Sounds: Normal Tenderness: Normal Skin: Normal Musculoskeletal: Normal Psychiatric: Other (DROWSY ) Mood Description: Flat Speech Pattern: Unclear, Inappropriate - Laboratory and Diagnostics Result Diagrams: 07/20/18 04:13 07/20/18 19:07 Labs: 07/19/18 14:52 Urine,Clean Catch Urine Culture - Preliminary 07/16/18 17:39 Blood Blood Culture - Preliminary 07/16/18 17:30 Blood Blood Culture - Preliminary Laboratory WBC 8.0 X10^3/uL (3.6-10.0) 07/20/18 04:13 RBC 3.98 X10^6/uL (3.5-5.4) 07/20/18 04:13 Hgb 12.9 g/dL (12.0-16.0) 07/20/18 04:13 Hct 38.2 % (36.0-47.0) 07/20/18 04:13 MCV 96.0 fL (80.0-100.0) 07/20/18 04:13 MCH 32.5 pg (27.0-34.0) 07/20/18 04:13 MCHC 33.9 g/dL (33.0-35.0) 07/20/18 04:13 RDW 13.9 % (11.6-16.5) 07/20/18 04:13 Plt Count 327 X10^3/uL (150.0-450.0) 07/20/18 04:13 MPV 9.4 fL (7.4-11.0) 07/20/18 04:13 Neut % (Auto) 64.8 % (42.0-75.0) 07/20/18 04:13 Lymph % (Auto) 18.3 % (21.0-51.0) L 07/20/18 04:13 [place] % (Auto) 9.3 % (0.0-13.0) 07/20/18 04:13 Eos % (Auto) 7.1 % (0.9-2.9) H 07/20/18 04:13 Baso % (Auto) 0.5 % (0.2-1.0) 07/20/18 04:13 Neut # (Auto) 5.2 x10^3/uL (2.2-4.8) H 07/20/18 04:13 Lymph # (Auto) 1.5 X10^3/uL (1.3-2.9) 07/20/18 04:13 [place] # (Auto) 0.7 x10^3/uL (0.3-0.8) 07/20/18 04:13 Eos # (Auto) 0.6 x10^3/uL (0.0-0.2) H 07/20/18 04:13 Baso # (Auto) 0.0 X10^3/uL (0.0-0.1) 07/20/18 04:13 Absolute Nucleated RBC 0.0 /100WBC 07/20/18 04:13 Sodium 137 mmol/L (136-145) 07/20/18 04:13 Corrected Sodium 137 mmol/L (136-145) 07/20/18 04:13 Potassium 3.4 mmol/L (3.5-5.1) L 07/20/18 19:07 Chloride 102 mmol/L (98-107) 07/20/18 04:13 Carbon Dioxide 23.5 mmol/L (21-32) 07/20/18 04:13 BUN 8 mg/dL (7-18) 07/20/18 04:13 Creatinine 0.68 mg/dL (0.55-1.02) 07/20/18 04:13 Est GFR (MDRD) Af Amer > 60 (>60) 07/20/18 04:13 Est GFR (MDRD) Non-Af > 60 (>60) 07/20/18 04:13 Glucose 113 mg/dL (65-99) H 07/20/18 04:13 Lactic Acid 1.2 mmol/L (0.4-2.0) 07/16/18 17:30 Calcium 8.7 mg/dL (8.5-10.1) 07/20/18 04:13 Corrected Calcium 10.1 mg/dL (8.5-10.1) 07/20/18 04:13 Magnesium 1.9 mg/dL (1.7-2.9) 07/18/18 04:55 Total Bilirubin 0.40 mg/dL (0.2-1.0) 07/20/18 04:13 AST 33 Units/L (15-37) 07/20/18 04:13 ALT 33 Units/L (12-78) 07/20/18 04:13 Alkaline Phosphatase 59 Units/L (46-116) 07/20/18 04:13 Creatine Kinase 139 Units/L (26-192) 07/17/18 09:50 CK-MB (CK-2) 1.8 ng/mL (0-4.0) 07/17/18 09:50 CK/CKMB % Calc 1.3 % (<4) 07/17/18 09:50 Troponin I 0.56 ng/mL (0-1.5) 07/17/18 09:50 Total Protein 6.4 g/dL (6.4-8.2) 07/20/18 04:13 Albumin 2.2 g/dL (3.4-5.0) L 07/20/18 04:13 Globulin 4.2 g/dL (2.5-4.5) 07/20/18 04:13 Albumin/Globulin Ratio 0.5 Ratio (1.1-2.1) L 07/20/18 04:13 Amylase 15 Units/L (25-115) L 07/16/18 17:30 Lipase 59 Units/L (73-393) L 07/16/18 17:30 Specimen Type Catherized urine 07/19/18 14:52 Urine Color Yellow (YELLOW) 07/19/18 14:52 Urine Appearance Hazy (CLEAR) 07/19/18 14:52 Urine pH 7.0 (5.0 - 8.0) 07/19/18 14:52 Ur Specific [place] 1.010 (1.000-1.030) 07/19/18 14:52 Urine Protein 2+ (NEGATIVE) 07/19/18 14:52 Urine Glucose (UA) Negative (NEGATIVE) 07/19/18 14:52 Urine Ketones Negative (NEGATIVE) 07/19/18 14:52 Urine Occult Blood 4+ (NEGATIVE) 07/19/18 14:52 Urine Nitrite Negative (NEGATIVE) 07/19/18 14:52 Urine Bilirubin Negative (NEGATIVE) 07/19/18 14:52 Urine Urobilinogen Normal (NORMAL) 07/19/18 14:52 Ur Leukocyte Esterase 2+ (NEGATIVE) 07/19/18 14:52 Urine RBC Tntc /HPF (NONE SEEN) 07/19/18 14:52 Urine WBC 20-30 /HPF (NONE SEEN) 07/19/18 14:52 Ur Squamous Epith Cells Rare /HPF (NEGATIVE) 07/19/18 14:52 Urine Bacteria Trace /HPF (NEGATIVE) 07/19/18 14:52 Urine Mucus Few /HPF (NEGATIVE) 07/19/18 14:52 Ur Culture Indicated? Yes/culture set up 07/19/18 14:52 Influenza Type A (PCR) Negative (NEGATIVE) 07/19/18 14:52 Influenza Type B (PCR) Negative (NEGATIVE) 07/19/18 14:52 S. pyogenes (TEM-PCR) Not detected (NOT DETECT) 07/19/18 14:52 - Plan (1) Altered mental status Status: Acute Qualifiers: Altered mental status type: transient alteration of awareness Qualified Code(s): R40.4 - Transient alteration of awareness Plan: BRAIN MRI TODAY, CONTINUE TO MONITOR (2) Fever Status: Acute Qualifiers: Fever type: unspecified Qualified Code(s): R50.9 - Fever, unspecified Plan: CHEST XRAY, URINALYSIS AND CULTURE, STREP AND FLU SWAB, CONTINUE TO MONITOR (3) Abdominal pain Status: Acute Qualifiers: Abdominal location: unspecified location Qualified Code(s): R10.9 - Unspecified abdominal pain
[2018-07-21 05:18] LABS: BASOPHILS % (AUTO) 0.5 % (0.2-1.0); EOSINOPHILS # (AUTO) 0.4 x10^3/uL (0.0-0.2); EOSINOPHILS % (AUTO) 5.9 % (0.9-2.9); HEMATOCRIT 41.6 % (36.0-47.0); HEMOGLOBIN 14.1 g/dL (12.0-16.0); LYMPHOCYTES # (AUTO) 1.3 X10^3/uL (1.3-2.9); LYMPHOCYTES % (AUTO) 17.8 % (21.0-51.0); MEAN CORPUSCULAR HEMOGLOBIN 32.6 pg (27.0-34.0); MEAN CORPUSCULAR HGB CONC 33.8 g/dL (33.0-35.0); MEAN CORPUSCULAR VOLUME 96.5 fL (80.0-100.0); MEAN PLATELET VOLUME 9.2 fL (7.4-11.0); MONOCYTES # (AUTO) 0.8 x10^3/uL (0.3-0.8); MONOCYTES % (AUTO) 11.7 % (0.0-13.0); NEUTROPHILS # (AUTO) 4.6 x10^3/uL (2.2-4.8); NEUTROPHILS % (AUTO) 64.1 % (42.0-75.0); PLATELET COUNT 370 X10^3/uL (150.0-450.0); RED BLOOD COUNT 4.31 X10^6/uL (3.5-5.4); RED CELL DISTRIBUTION WIDTH 13.9 % (11.6-16.5); WHITE BLOOD COUNT 7.2 X10^3/uL (3.6-10.0)
[2018-07-21 05:42] LABS: ALANINE AMINOTRANSFERASE 38 Units/L (12-78); ALBUMIN 2.3 g/dL (3.4-5.0); ALKALINE PHOSPHATASE 63 Units/L (46-116); ASPARTATE AMINO TRANSFERASE 37 Units/L (15-37); BLOOD UREA NITROGEN 5 mg/dL (7-18); CALCIUM 9.1 mg/dL (8.5-10.1); CARBON DIOXIDE 24.9 mmol/L (21-32); CHLORIDE 102 mmol/L (98-107); COR CA(FOR HYPOALB) 10.5 mg/dL (8.5-10.1); COR NA(FOR HYPERGLY) 137 mmol/L (136-145); SODIUM 137 mmol/L (136-145); TOTAL PROTEIN 6.7 g/dL (6.4-8.2); eGFR NON BLACK RACES > 60 (>60)
[2018-07-21] MEDS: D5W 1000 ML IV 1,000 ML IV SCH (06:15)
[2018-07-21] MEDS: DUONEB 0.5 MG/3 MG NEB SCH ×3 (08:08→11:59)
[2018-07-21] MEDS: LOVENOX INJ 40 MG SYR SC SCH (09:52)
[2018-07-21 12:49] VITALS: BP 143/84
== END 2018-07-21 14:25 | DRG 884 ==
LOC: ER 15:34 → ICU 15:34 → MED/SURG 07-18 13:18
PROVIDERS: ADMIT Internal Medicine; ATTEND Internal Medicine
DX: Z66 Do not resuscitate; R10.84 Generalized abdominal pain; B95.2 Enterococcus as the cause of diseases classified elsewhere; R94.31 Abnormal electrocardiogram [ECG] [EKG]; R50.9 Fever, unspecified; N39.0 Urinary tract infection, site not specified; F41.8 Other specified anxiety disorders; I10 Essential (primary) hypertension; R40.4 Transient alteration of awareness; J44.9 Chronic obstructive pulmonary disease, unspecified; Z86.73 Personal history of transient ischemic attack (TIA), and cerebral infarction without residual deficits; E87.0 Hyperosmolality and hypernatremia; R26.89 Other abnormalities of gait and mobility
CPT/HCPCS: 36415; 51702; 70450; 70551; 71010; 71045; 74176; 80053; 81001; 82150; 82550; 82553; 83605; 83690; 83735; 84132; 84484; 85025; 87040; 87086; 87088; 87186; 87502; 87651; 93005; 94640; 96365; 97163; 97167; 99282; 99284; A4222; G0378; J0696; J1650; J3480; J3490; J7030; J7060; J7620